=== PATIENT | female | born 1990 | race Caucasian/White ===

== ENCOUNTER → 2020-05-18 14:39 | Outpatient (BNVA) | payer MEDICAID, SELFPAY | PROVIDERS: Family Provider Nurse Practitioner Family; PCP Nurse Practitioner Family; Visit Provider Family Medicine | DX: I10 Essential (primary) hypertension; E03.9 Hypothyroidism, unspecified; I89.0 Lymphedema, not elsewhere classified; G40.802 Other epilepsy, not intractable, without status epilepticus; E10.65 Type 1 diabetes mellitus with hyperglycemia; R60.0 Localized edema | CPT/HCPCS: 80053; 80061; 83036; 83735; 84439; 84443; 84481 ==

== ENCOUNTER 2020-06-02 14:37 | Outpatient (CLI) | payer MEDICAID, SELFPAY ==
--- NOTE | 2020-06-02 15:00 | USCV_ITS ---
Sally Drake Age: 29 Gender: F : 1990 Exam Date: 06/02/2020 14:56 Ordering Phys: Moraima Medrano MD Technologist: Tere Hoffmann [place]am Location: [facility] [place] Indication: FEET ARE SWELLING BP: / HR: 88 Rhythm: Sinus Technical Quality: Adequate MEASUREMENTS (Male / Female) Normal Values 2D ECHO LV Diastolic Diameter PLAX 4.2 cm 4.2 - 5.9 / 3.9 - 5.3 cm LV Systolic Diameter PLAX 2.9 cm LV Chamber Size 2.8 cm IVS Diastolic Thickness 1.0 cm 0.6 - 1.0 / 0.6 - 0.9 cm IVS Systolic Thickness 1.1 cm LVPW Diastolic Thickness 1.2 cm 0.6 - 1.0 / 0.6 - 0.9 cm LVPW Systolic Thickness 1.1 cm RV Chamber Size 2.0 cm LVOT Diameter 2.0 cm LV Ejection Fraction 2D Teich 57.4 % LV Ejection Fraction MOD 2C 62.9 % LV Ejection Fraction 2C AL 64.1 % LA Diameter 3.4 cm LA Width 2.2 cm LA Height 3.4 cm RA Width 2.6 cm RA Height 3.1 cm Aorta at Sinotubular Diameter 3.0 cm M-MODE LV Diastolic Diameter MM 4.2 cm 4.2 - 5.9 / 3.9 - 5.3 cm LV Systolic Diameter MM 2.6 cm LV Ejection Fraction MM Teich 68.8 % IVS Diastolic Thickness MM 1.0 cm 0.6 - 1.0 / 0.6 - 0.9 cm IVS Systolic Thickness MM 1.3 cm LVPW Diastolic Thickness MM 1.0 cm 0.6 - 1.0 / 0.6 - 0.9 cm LVPW Systolic Thickness MM 1.1 cm RV Diastolic Diameter MM 1.4 cm Aortic Annulus Diameter 3.3 cm LA Ao Ratio MM 1.0 MV E Point Septal Separation 0.4 cm DOPPLER AV Peak Velocity 115.0 cm/s LVOT Peak Velocity 91.0 cm/s AV Area Cont Eq vti 2.5 cm squared AV Area Cont Eq pk 2.5 cm squared MV Area PHT 4.4 cm squared Mitral E to A Ratio 1.4 MV E' Velocity 17.0 cm/s Mitral E to MV E' Ratio 5.6 Mitral E to LV E' Lateral Ratio 5.3 Mitral E to LV E' Septal Ratio 6.0 TR Peak Velocity 93.3 cm/s TR Peak Gradient 3.5 mmHg TR Mean Velocity 74.3 cm/s TR Mean Gradient 2.3 mmHg TR Velocity Time Integral 24.2 cm TV Peak E Velocity 83.0 cm/s Right Atrial Pressure 3.0 mmHg Pulmonary Artery Systolic Pressu 6.5 mmHg PV Peak Velocity 68.0 cm/s RV Acceleration Time 0.2 s RV Ejection Time 0.3 s RV AcT/ET 0.6 FINDINGS Left Ventricle Normal left ventricular size and systolic function, EF 55%. No regional wall motion abnormalities. Right Ventricle The right ventricle is normal in size and function. Right Atrium The right atrium is normal in size. Left Atrium The left atrium is normal in size. Mitral Valve No gross abnormalities noted Aortic Valve No gross abnormalities noted Tricuspid Valve Trace tricuspid valve regurgitation. Pulmonic Valve Pulmonic valve not well visualized. Pericardium Normal pericardium without effusion. Aorta Normal ascending aorta dimension. CONCLUSIONS Normal left ventricular size and systolic function, EF 55%. Trace tricuspid valve regurgitation. No regional wall motion abnormalities. Normal pulmonary artery pressure. There is no pericardial effusion. There are no intracardiac masses. No previous study is available for comparison. Dr Leighann Dumont MD FACC (Electronically Signed) Final Date: 02 June 2020 17:38 S
== END 2020-06-02 14:38 | disposition home or self-care (01) ==
PROVIDERS: PCP Family Medicine; Visit Provider Family Medicine
DX: R60.0 Localized edema (principal); M79.89 Other specified soft tissue disorders
CPT/HCPCS: 93306

== ENCOUNTER → 2020-08-15 09:13 | Outpatient (BNVA) | payer MEDICAID, SELFPAY | PROVIDERS: PCP Family Medicine; Visit Provider Family Medicine | DX: M25.551 Pain in right hip (principal); M53.3 Sacrococcygeal disorders, not elsewhere classified | CPT/HCPCS: 73523 ==

== ENCOUNTER → 2020-09-13 10:29 | Outpatient (BNVA) | payer MEDICAID, SELFPAY | PROVIDERS: PCP Family Medicine; Referring Provider Family Medicine; Visit Provider Specialist | DX: M25.551 Pain in right hip (principal) | CPT/HCPCS: 73502 ==

== ENCOUNTER 2020-10-04 07:03 | Outpatient (CLI) | payer MEDICAID, SELFPAY ==
--- NOTE | 2020-10-04 07:07 | MR_ITS ---
WS: [id number] MRI RIGHT HIP NONCONTRAST TECHNIQUE: Axial T1, axial T2 fat sat, coronal T1, coronal STIR, sagittal T2 fat sat, sagittal T1, an d sagittal T2 fat sat, of both hips. CLINICAL INFORMATION: hip pain COMPARISON: None. FINDINGS: Normal anatomic alignment. Normal bone marrow signal in both hips. Normal bone marrow signal in the f emoral necks bilaterally and femoral heads. No evidence of edema or avascular necrosis. Tiny right hong int effusion. Proximal femoral shafts are normal in appearance. Normal sacral ala. Sacrum is normal i n appearance. Normal acetabulum bilaterally. Normal visualized soft tissues. Small amount of free fluid in the cul-de-sac. MR/MR hip RT wo con* [id number] IMPRESSION: 1. Right hip is normal in appearance. No edema or acute fractures. No evidence of avascular necrosis. 2. Tiny right joint effusion. 3. Left hip is normal in appearance. 4. Normal visualized sacrum and pelvic bony structures.
== END 2020-10-04 07:04 | disposition home or self-care (01) ==
PROVIDERS: PCP Family Medicine; Visit Provider Specialist
DX: M25.551 Pain in right hip (principal); M25.451 Effusion, right hip
CPT/HCPCS: 73721

== ENCOUNTER 2020-10-04 08:12 | Outpatient (CLI) | payer MEDICAID, SELFPAY ==
[2020-10-04 09:20] LABS: C Reactive Protein 1.9 mg/L (0.0-4.9)
[2020-10-04 10:03] LABS: Erythrocyte Sedimentation Rate 19 mm/hr (0-15)
[2020-10-05 15:33] LABS: Cyclic Citrullinated Peptide <16 UNITS
[2020-10-06 12:27] LABS: COMPLEMENT, TOTAL (CH50) 58 U/mL (31-60)
[2020-10-06 12:57] LABS: CENTROMERE B ANTIBODY <1.0 NEG AI (<1.0 NEG); COMPLEMENT COMPONENT C3C 97 mg/dL (83-193); COMPLEMENT COMPONENT C4C 23 mg/dL (15-57); JO-1 ANTIBODY <1.0 NEG AI (<1.0 NEG); RNP ANTIBODY <1.0 NEG AI (<1.0 NEG); SCL-70 ANTIBODY <1.0 NEG AI (<1.0 NEG); SJOGREN'S ANTIBODY (SS-A) <1.0 NEG AI (<1.0 NEG); SM ANTIBODY <1.0 NEG AI (<1.0 NEG); SS-B <1.0 NEG AI (<1.0 NEG)
[2020-10-06 15:58] LABS: THYROID PEROXIDASE ANTIBODIES <1 IU/mL (<9)
[2020-10-09 01:03] LABS: DNA AB (DS) CRITHIDIA,IFA NEGATIVE (NEGATIVE)
[2020-10-09 11:57] LABS: ANA PATTERN Nuclear, Speckled; ANA SCREEN, IFA POSITIVE (NEGATIVE)
== END 2020-10-04 08:13 | disposition home or self-care (01) ==
LOC: LAB 08:15
PROVIDERS: PCP Family Medicine; Visit Provider Specialist
DX: M25.551 Pain in right hip (principal)
CPT/HCPCS: 36415; 85651; 86140

== ENCOUNTER → 2020-10-19 09:01 | Outpatient (BNVA) | payer MEDICAID, SELFPAY | PROVIDERS: PCP Family Medicine; Visit Provider Internal Medicine | DX: R76.8 Other specified abnormal immunological findings in serum (principal); M25.551 Pain in right hip; Z11.59 Encounter for screening for other viral diseases; Z11.1 Encounter for screening for respiratory tuberculosis; R70.0 Elevated erythrocyte sedimentation rate; R53.83 Other fatigue | CPT/HCPCS: 99204 ==

== ENCOUNTER 2020-10-19 09:58 | Outpatient (CLI) | payer MEDICAID, SELFPAY ==
--- NOTE | 2020-10-19 10:13 | XR_ITS ---
WS: [id number] FOOT LEFT TECHNIQUE: 2 views of the left foot CLINICAL INFORMATION: M25.50 - Pain in unspecified joint COMPARISON: None. FINDINGS: No evidence of acute fracture or dislocation. Normal tarsal metatarsal alignment. Normal calcaneus. N ormal visualized talar dome. No acute findings. XR/XR foot LT 2V [id number] IMPRESSION: No significant erosive changes. No acute findings.
--- NOTE | 2020-10-19 10:13 | XR_ITS ---
WS: [id number] FOOT RIGHT TECHNIQUE: 2 views of the right foot CLINICAL INFORMATION: M25.50 - Pain in unspecified joint COMPARISON: None. FINDINGS: No evidence of acute fracture or dislocation. Normal tarsal metatarsal alignment. Normal calcaneus. N ormal visualized talar dome. No acute findings. XR/XR foot RT 2V [id number] IMPRESSION: No significant erosive changes. Normal right foot.
--- NOTE | 2020-10-19 10:13 | XR_ITS ---
WS: [id number] TECHNIQUE: 2 views of the left hand CLINICAL INFORMATION: M25.50 - Pain in unspecified joint COMPARISON: None. FINDINGS: Normal metacarpals. Normal MCP joint. Metacarpal heads are normal in appearance. Normal PIP and DIP j oints. No evidence of acute fracture or dislocation. Radiocarpal joint: Normal. Carpal bones: Normal. XR/XR hand LT 2V [id number] IMPRESSION: Normal left hand.
--- NOTE | 2020-10-19 10:13 | XR_ITS ---
WS: [id number] TECHNIQUE: 2 views of the right hand CLINICAL INFORMATION: M25.50 - Pain in unspecified joint COMPARISON: None. FINDINGS: Normal metacarpals. Normal MCP joint. Metacarpal heads are normal in appearance. Normal PIP and DIP j oints. No evidence of acute fracture or dislocation. Radiocarpal joint: Normal. Carpal bones: Normal. XR/XR hand RT 2V [id number] IMPRESSION: Normal right hand.
== END 2020-10-19 09:59 | disposition home or self-care (01) ==
PROVIDERS: PCP Family Medicine; Visit Provider Internal Medicine
DX: M25.50 Pain in unspecified joint (principal); M32.9 Systemic lupus erythematosus, unspecified; Z51.81 Encounter for therapeutic drug level monitoring; D86.9 Sarcoidosis, unspecified
CPT/HCPCS: 36415; 73120; 73620; 80053; 82306; 82607; 82728; 82784; 83036; 83516; 83540; 84425; 84443; 85025; 85651; 86140; 86431; 86480; 86704; 86803; 86812; 87340

== ENCOUNTER → 2021-01-22 10:48 | Outpatient (BNVA) | payer BC, MEDICAID, SELFPAY | PROVIDERS: PCP Family Medicine; Visit Provider Family Medicine | DX: I10 Essential (primary) hypertension (principal); F41.1 Generalized anxiety disorder; R00.2 Palpitations; G47.00 Insomnia, unspecified; L30.9 Dermatitis, unspecified; I89.0 Lymphedema, not elsewhere classified; E03.9 Hypothyroidism, unspecified; E11.9 Type 2 diabetes mellitus without complications | CPT/HCPCS: 80048; 84439; 84443; 84481 ==

== ENCOUNTER → 2021-01-24 16:26 | Outpatient (BNVA) | payer BC, MEDICAID, SELFPAY | PROVIDERS: PCP Family Medicine; Visit Provider Family Medicine | DX: E10.65 Type 1 diabetes mellitus with hyperglycemia (principal) | CPT/HCPCS: 83036 ==

== ENCOUNTER → 2021-02-15 09:11 | Outpatient (BNVA) | payer BC, MEDICAID, SELFPAY | PROVIDERS: PCP Family Medicine; Visit Provider Internal Medicine | DX: E03.9 Hypothyroidism, unspecified (principal); E10.40 Type 1 diabetes mellitus with diabetic neuropathy, unspecified; E10.65 Type 1 diabetes mellitus with hyperglycemia; Z79.4 Long term (current) use of insulin; E16.0 Drug-induced hypoglycemia without coma; T38.3X5A Adverse effect of insulin and oral hypoglycemic [antidiabetic] drugs, initial encounter; F41.1 Generalized anxiety disorder | CPT/HCPCS: 99204 ==

== ENCOUNTER → 2021-03-01 10:58 | Outpatient (BNVA) | payer BC, MEDICAID, SELFPAY | PROVIDERS: PCP Family Medicine; Visit Provider Internal Medicine | DX: E03.9 Hypothyroidism, unspecified (principal); E10.40 Type 1 diabetes mellitus with diabetic neuropathy, unspecified; E10.65 Type 1 diabetes mellitus with hyperglycemia; E16.0 Drug-induced hypoglycemia without coma; T38.3X5A Adverse effect of insulin and oral hypoglycemic [antidiabetic] drugs, initial encounter | CPT/HCPCS: 99214 ==

== ENCOUNTER → 2021-03-21 11:34 | Outpatient (BNVA) | payer BC, MEDICAID, SELFPAY | PROVIDERS: PCP Family Medicine; Visit Provider Nurse Practitioner Family | DX: Z20.822 Contact with and (suspected) exposure to COVID-19 (principal) | CPT/HCPCS: 87635 ==

== ENCOUNTER → 2021-06-21 11:52 | Outpatient (BNVA) | payer BC, MEDICAID, SELFPAY | PROVIDERS: PCP Family Medicine; Visit Provider Family Medicine | DX: G40.802 Other epilepsy, not intractable, without status epilepticus (principal); F41.1 Generalized anxiety disorder; G47.00 Insomnia, unspecified; R00.2 Palpitations; E03.9 Hypothyroidism, unspecified; I10 Essential (primary) hypertension; I89.0 Lymphedema, not elsewhere classified; E11.9 Type 2 diabetes mellitus without complications | CPT/HCPCS: 80053; 80061; 83036 ==

== ENCOUNTER → 2021-09-25 11:31 | Outpatient (BNVA) | payer BC, MEDICAID, SELFPAY | PROVIDERS: PCP Family Medicine; Visit Provider Internal Medicine | DX: E10.65 Type 1 diabetes mellitus with hyperglycemia (principal); E10.40 Type 1 diabetes mellitus with diabetic neuropathy, unspecified; E03.9 Hypothyroidism, unspecified; E16.0 Drug-induced hypoglycemia without coma; T38.3X5A Adverse effect of insulin and oral hypoglycemic [antidiabetic] drugs, initial encounter; Z79.4 Long term (current) use of insulin | CPT/HCPCS: 99214 ==

== ENCOUNTER → 2021-10-12 09:04 | Outpatient (BNVA) | payer BC, MEDICAID, SELFPAY | PROVIDERS: PCP Family Medicine; Visit Provider Internal Medicine | DX: E10.65 Type 1 diabetes mellitus with hyperglycemia (principal); E10.40 Type 1 diabetes mellitus with diabetic neuropathy, unspecified; E03.9 Hypothyroidism, unspecified; E16.0 Drug-induced hypoglycemia without coma; T38.3X5A Adverse effect of insulin and oral hypoglycemic [antidiabetic] drugs, initial encounter; Z79.4 Long term (current) use of insulin | CPT/HCPCS: 99214 ==

== ENCOUNTER → 2021-12-10 08:45 | Outpatient (BNVA) | payer BC, MEDICAID, SELFPAY | PROVIDERS: PCP Family Medicine; Visit Provider Family Medicine | DX: E03.9 Hypothyroidism, unspecified (principal); I10 Essential (primary) hypertension; E10.65 Type 1 diabetes mellitus with hyperglycemia | CPT/HCPCS: 80053; 83036; 83735; 84443; 85025; 87635 ==

== ENCOUNTER → 2022-01-18 09:22 | Outpatient (BNVA) | payer BC, MEDICAID, SELFPAY | PROVIDERS: PCP Family Medicine; Visit Provider Internal Medicine | DX: E10.65 Type 1 diabetes mellitus with hyperglycemia (principal); E10.40 Type 1 diabetes mellitus with diabetic neuropathy, unspecified; E03.9 Hypothyroidism, unspecified; Z79.4 Long term (current) use of insulin | CPT/HCPCS: 99214 ==

== ENCOUNTER → 2022-04-12 08:50 | Outpatient (BNVA) | payer BC, MEDICAID, SELFPAY | PROVIDERS: PCP Family Medicine; Visit Provider Internal Medicine | DX: E10.40 Type 1 diabetes mellitus with diabetic neuropathy, unspecified (principal); E10.65 Type 1 diabetes mellitus with hyperglycemia; E03.9 Hypothyroidism, unspecified; Z79.4 Long term (current) use of insulin | CPT/HCPCS: 80053; 80061; 83036; 84439; 84443; 99214 ==

== ENCOUNTER → 2022-08-13 11:14 | Outpatient (BNVA) | payer BC, MEDICAID, SELFPAY | PROVIDERS: PCP Family Medicine; Visit Provider Family Medicine | DX: G47.00 Insomnia, unspecified (principal); R00.2 Palpitations; I10 Essential (primary) hypertension; I89.0 Lymphedema, not elsewhere classified; G40.802 Other epilepsy, not intractable, without status epilepticus; F41.1 Generalized anxiety disorder; E10.40 Type 1 diabetes mellitus with diabetic neuropathy, unspecified; E03.9 Hypothyroidism, unspecified; R76.8 Other specified abnormal immunological findings in serum; M25.551 Pain in right hip; E10.65 Type 1 diabetes mellitus with hyperglycemia; F51.04 Psychophysiologic insomnia | CPT/HCPCS: 80053; 83036; 84443; 85651; 86140 ==

== ENCOUNTER → 2022-10-28 09:21 | Outpatient (BNVA) | payer BC, MEDICAID, SELFPAY | PROVIDERS: PCP Family Medicine; Visit Provider Internal Medicine | DX: R76.8 Other specified abnormal immunological findings in serum (principal); E03.9 Hypothyroidism, unspecified; E10.40 Type 1 diabetes mellitus with diabetic neuropathy, unspecified; E16.0 Drug-induced hypoglycemia without coma; R73.9 Hyperglycemia, unspecified; T38.3X5A Adverse effect of insulin and oral hypoglycemic [antidiabetic] drugs, initial encounter | CPT/HCPCS: 80061; 82550; 83036; 83516; 83735; 84100; 85651; 86140 ==

== ENCOUNTER → 2022-11-01 09:57 | Outpatient (BNVA) | payer BC, MEDICAID, SELFPAY | PROVIDERS: PCP Family Medicine; Visit Provider Internal Medicine | DX: E10.40 Type 1 diabetes mellitus with diabetic neuropathy, unspecified (principal); E03.9 Hypothyroidism, unspecified; E10.65 Type 1 diabetes mellitus with hyperglycemia; R73.9 Hyperglycemia, unspecified | CPT/HCPCS: 36415; 84439; 84443 ==

== ENCOUNTER → 2023-01-28 09:13 | Outpatient (BNVA) | payer BC, MEDICAID, SELFPAY | PROVIDERS: PCP Family Medicine; Visit Provider Internal Medicine | DX: E03.9 Hypothyroidism, unspecified (principal); E10.40 Type 1 diabetes mellitus with diabetic neuropathy, unspecified | CPT/HCPCS: 80053; 80061; 83036; 84439; 84443 ==

== ENCOUNTER → 2023-02-17 16:33 | Outpatient (BNVA) | payer BC, MEDICAID, SELFPAY | PROVIDERS: PCP Family Medicine; Visit Provider Internal Medicine | DX: M25.50 Pain in unspecified joint (principal); M53.3 Sacrococcygeal disorders, not elsewhere classified; M54.50 Low back pain, unspecified | CPT/HCPCS: 72100; 73522 ==

== ENCOUNTER → 2023-03-04 09:11 | Outpatient (BNVA) | payer BC, MEDICAID, SELFPAY | PROVIDERS: PCP Family Medicine; Visit Provider Emergency Medicine | DX: S92.254A Nondisplaced fracture of navicular [scaphoid] of right foot, initial encounter for closed fracture (principal); X58.XXXA Exposure to other specified factors, initial encounter; M79.671 Pain in right foot | CPT/HCPCS: 73630 ==

== ENCOUNTER → 2023-03-21 09:19 | Outpatient (BNVA) | payer BC, MEDICAID, SELFPAY | PROVIDERS: PCP Family Medicine; Visit Provider Podiatrist Foot & Ankle Surgery | DX: S92.251A Displaced fracture of navicular [scaphoid] of right foot, initial encounter for closed fracture (principal); E10.9 Type 1 diabetes mellitus without complications; Z79.4 Long term (current) use of insulin; X58.XXXA Exposure to other specified factors, initial encounter | CPT/HCPCS: 73630 ==

== ENCOUNTER → 2023-03-27 08:57 | Outpatient (BNVA) | payer BC, MEDICAID, SELFPAY | PROVIDERS: PCP Family Medicine; Visit Provider Family Medicine | DX: G40.909 Epilepsy, unspecified, not intractable, without status epilepticus (principal); F41.1 Generalized anxiety disorder; I10 Essential (primary) hypertension; I89.0 Lymphedema, not elsewhere classified; R00.2 Palpitations; G40.802 Other epilepsy, not intractable, without status epilepticus; E03.9 Hypothyroidism, unspecified; E10.40 Type 1 diabetes mellitus with diabetic neuropathy, unspecified; E10.9 Type 1 diabetes mellitus without complications; R73.9 Hyperglycemia, unspecified; R76.8 Other specified abnormal immunological findings in serum; E10.65 Type 1 diabetes mellitus with hyperglycemia; F51.04 Psychophysiologic insomnia; R22.1 Localized swelling, mass and lump, neck | CPT/HCPCS: 80053; 80061; 82043; 83036; 84439; 84443; 84480 ==

== ENCOUNTER → 2023-04-09 09:43 | Outpatient (BNVA) | payer BC, MEDICAID, SELFPAY | PROVIDERS: PCP Family Medicine; Visit Provider Podiatrist Foot & Ankle Surgery | DX: S92.251A Displaced fracture of navicular [scaphoid] of right foot, initial encounter for closed fracture (principal); X58.XXXA Exposure to other specified factors, initial encounter | CPT/HCPCS: 73630 ==

== ENCOUNTER 2023-04-15 08:25 | Outpatient (CLI) | payer BC, MEDICAID, SELFPAY ==
--- NOTE | 2023-04-15 08:15 | US_ITS ---
WS: [id number] THYROID ULTRASOUND HISTORY: Thyroiditis COMPARISON: 11/01/2016 Right lobe: 1.1 cm x 0.9 cm x 3.3 cm (w x ap x l). Volume: 1.7 cm3. Normal size and mild coarsened echotexture. No significant are dominant nodules are present. Left lobe: 1.3 cm x 0.8 cm x 3.6 cm (w x ap x l). Volume: 1.9 cm3. Normal size and mild coarsened echotexture. No significant or dominant nodules are present. Isthmus: 0.2 cm. US/US thyroid [id number] IMPRESSION: 1. No thyroid nodules. 2. Thyroid has decreased in size since 11/01/2016. Otherwise no suspicious or a bnormal findings.
== END 2023-04-15 08:26 | disposition home or self-care (01) ==
LOC: RAD 08:29
PROVIDERS: PCP Family Medicine; Visit Provider Internal Medicine
DX: E06.9 Thyroiditis, unspecified (principal)
CPT/HCPCS: 76536

== ENCOUNTER → 2023-04-30 10:17 | Outpatient (BNVA) | payer BC, MEDICAID, SELFPAY | PROVIDERS: PCP Family Medicine; Visit Provider Podiatrist Foot & Ankle Surgery | DX: S92.251A Displaced fracture of navicular [scaphoid] of right foot, initial encounter for closed fracture (principal); S93.401A Sprain of unspecified ligament of right ankle, initial encounter; X58.XXXA Exposure to other specified factors, initial encounter; M76.71 Peroneal tendinitis, right leg; E11.9 Type 2 diabetes mellitus without complications; Z79.4 Long term (current) use of insulin; Z79.84 Long term (current) use of oral hypoglycemic drugs | CPT/HCPCS: 73630 ==

== ENCOUNTER 2023-05-13 06:54 | Outpatient (CLI) | payer BC, MEDICAID, SELFPAY ==
--- NOTE | 2023-05-13 07:15 | MR_ITS ---
WS: [id number] EXAMINATION: MR ankle RT wo con* [id number] ORDER DATE: 05/13/2023 7:38 AM COMPARISON: Radiograph April 30, 2023 HISTORY: Navicular fracture CONTRAST: None. TECHNIQUE: Axial proton density fat sat, axial T1, sagittal proton density, sagittal STIR, coronal T2 fat sat, and coronal T1 sequences performed. After contrast, axial T1 fat sat, coronal T1 fat sat, and sagittal T1 fat sat were performed. FINDINGS: Pes planus. Normal tarsal metatarsal alignment. Presented described navicular fracture with evidence of incomplete healing. Diffuse edema within the navicular with a small amount of surrounding soft tis nirav edema. Fluid in the talonavicular joint. Persistent well-corticated fracture involving the navic ular with mild widening. Small amount of fluid and edema in the fracture site. Distal Achilles is normal in appearance. Tiny amount of tenosynovitis along the peroneal tendon sheat h. Small amount of tenosynovitis along the tibialis posterior and flexor hallucis longus. Extensor co mpartment tendons are normal in appearance. Normal ATF. Normal PTF Normal bone marrow signal in the talar dome. Normal bone marrow signal in the medial and lateral mall eolus. Normal deltoid ligament. Small amount of subchondral cystic change in the posterior tibial jose l fond. MR/MR ankle RT wo con* [id number] IMPRESSION: 1. Again seen is the nondisplaced fracture involving the mid navicular. Incomp lete bony healing with mild widening suspicious for ununited fracture. Persiste nt edema involving the navicular. Recommend continued surveillance. 2. Pes planus. 3. Normal talar dome. No evidence of avascular necrosis in the talar dome. 4. Normal ATF. 5. Normal medial and lateral malleolus. 6. Small amount of tenosynovitis along the peroneal tendon sheath, tibialis po sterior, flexor hallucis longus. 7. No other acute findings.
== END 2023-05-13 06:55 | disposition home or self-care (01) ==
LOC: RAD 06:55
PROVIDERS: PCP Family Medicine; Visit Provider Podiatrist Foot & Ankle Surgery
DX: S92.253A Displaced fracture of navicular [scaphoid] of unspecified foot, initial encounter for closed fracture (principal); M76.71 Peroneal tendinitis, right leg; M79.671 Pain in right foot; X58.XXXA Exposure to other specified factors, initial encounter; Y93.9 Activity, unspecified; Y92.9 Unspecified place or not applicable; Y99.9 Unspecified external cause status
CPT/HCPCS: 73721

== ENCOUNTER 2023-05-23 10:23 | Day surgery (SDC) | payer BC, MEDICAID, SELFPAY ==
[2023-05-22 08:25] VITALS: BMI 31.6
[2023-05-23] VITALS (10 sets, daily range): BP systolic 125–136; BP diastolic 75–96; PULSE 76–85; RESP 10–20; TEMP 36.1–36.6; O2SAT 97–100
--- NOTE | 2023-05-23 | XR_ITS ---
WS: [id number] C-ARM RADIOGRAPHS LEFT FOOT; 1 IMAGES HISTORY: Right navicular, OR pic COMPARISON: None available. Intraoperative imaging during screw fixation navicular bone. Navicular good position alignment on thi s single projection. XR/XR foot RT 2V [id number] IMPRESSION: Intraoperative imaging screw fixation navicular.
[2023-05-23 10:54] LABS: OR HCG Qualitative Urine Negative (Negative)
[2023-05-23] MEDS: gabapentin 300 mg Capsule PO (11:19)
[2023-05-23] MEDS: acetaminophen 1,000 MG/100 ML PIGGYBACK 400 MG IV (11:28)
[2023-05-23] MEDS: sodium chloride 0.9% 1,000 ML 30 ML IV (11:30)
[2023-05-23 11:40] LABS: Basophils % 0.4 %; Eosinophils # 0.1 10^3/uL (0.0-0.8); Eosinophils % 1.2 %; Hematocrit 35.2 % (37.0-47.0); Hemoglobin 11.1 g/dL (11.5-15.3); Lymphocytes # 1.9 10^3/uL (0.8-4.8); Lymphocytes % 33.3 %; Mean Corpuscular HGB Conc 31.5 g/dL (30.0-36.0); Mean Corpuscular Hemoglobin 30.6 pg (28.0-34.0); Mean Platelet Volume 11.1 fL (7.4-10.4); Monocytes # 0.3 10^3/uL (0.2-0.9); Monocytes % 5.1 %; Neutrophils # 3.42 10^3/uL (1.8-7.7); Neutrophils % 59.8 %; Nucleated Red Blood Cells % 0 %; Platelet Count 178 10^3/cmm (130-400); Red Blood Count 3.63 10^6/uL (4.1-5.3); Red Cell Distribution Width 12.4 % (12.1-15.1); White Blood Count 5.7 10^3/uL (4.0-10.0)
--- NOTE | 2023-05-23 11:47 | W.PM.OPSUD ---
Surgery/Procedure H&P Update DATE OF PROCEDURE: May 23, 2023 DATE H&P PERFORMED: 05/14/23 CHANGES TO PREVIOUS DOCUMENTATION: No changes PREOP DIAGNOSIS: Right navicular fracture PLANNED PROCEDURE: Operation Date: 05/23/23 12:00 Proposed Procedures p :?ORIF right navicular fracture CPT 80038 S92.254(Right) - Casey Hayden DPM
[2023-05-23 11:50] LABS: Anion Gap 16.3 (5-19); Blood Urea Nitrogen 13 mg/dL (6-20); Calcium 9.4 mg/dL (8.5-10.5); Carbon Dioxide 24 mmol/L (22-29); Chloride 101 mmol/L (98-107); Glomerular Filtration Rate 96.4 mL/min (90-130); Glucose 137 mg/dL (65-115); Osmolality Calculated 286 mOsm/kg (285-295); Potassium 4.3 mmol/L (3.5-5.1); Sodium 137 mmol/L (136-145)
--- NOTE | 2023-05-23 12:34 | P.ANESASSM_ITS ---
Pre-Anesthetic Assessment Height/Weight: Height 1.68 m Weight 88.904 kg Temp Pulse Resp BP Pulse Ox O2 Del Method 97.9 F 85 16 130/83 97 Room Air 05/23/23 10:47 05/23/23 10:47 05/23/23 10:47 05/23/23 10:47 05/23/23 10:47 05/23/23 10:47 Preop Diagnosis: Right navicular fracture Operation Date: 05/23/23 12:00 Proposed Procedures p :?ORIF right navicular fracture CPT 28854 S92.254(Right) - Casey Hayden DPM Familial anesthetic complications: none Was Beta Bassam taken within 24 hours: Yes Was Clonidine taken within 24 hours: N/A Last intake: Intake Last Liquid Date 05/22/23 Last Liquid Time 23:00 Last Solid Date 05/22/23 Last Solid Time 19:30 Social No alcohol and No tobacco Exam alert, oriented x 3, clear to auscultation bilaterally and regular rate & rhythm Airway Submandibular: within normal limits Cervical ROM: within normal limits Mallampati: Class II Dentition: full CV/HEM Hypertension Metabolic Diabetes Mellitus, Morbid Obesity and Thyroid Disease Neuropsych Anxiety, Depression and Neuropathy Anesthetic Plan ASA status: 3 Anesthesia: Choice Medications/Allergies Home Medications Medication Instructions Recorded Confirmed Last Taken Type Diabetic shoes & inserts #1 ea 07/27/20 05/14/23 Unknown Rx pen needle, diabetic 29 gauge x #360 ea 02/16/21 05/14/23 Unknown Rx 1/2 (BD Ultra-Fine Original Pen Needle) blood-glucose meter (OneTouch #1 ea 08/21/21 05/14/23 Unknown Rx Verio Flex Start kit) lancets 33 gauge (OneTouch Delica #360 ea 08/21/21 05/14/23 Unknown Rx Lancets) blood-glucose meter,continuous #1 ea 01/22/22 05/14/23 Unknown Rx (Dexcom G6 Maintenance Construction Helper) blood-glucose transmitter (Dexcom #1 ea 08/02/22 05/14/23 Unknown Rx G6 Transmitter device) insulin pump cartridge #30 ea 08/06/22 05/14/23 Unknown Rx levetiracetam 750 mg tablet 750 mg PO BID 90 days #180 tabs 08/13/22 05/23/23 05/22/23 Rx (Keppra) insulin pump cart,cont inf,BT #5 ea 09/17/22 05/14/23 Unknown Rx (Omnipod Dash Pods (Gen 4) subcutaneous cartridge) gabapentin 300 mg capsule 300 mg PO TID 90 days #270 caps 10/01/22 05/23/23 05/22/23 Rx hydroxychloroquine 200 mg tablet 200 mg PO BID #60 tabs 02/11/23 05/23/23 05/22/23 Rx Crutches #2 ea 03/07/23 05/14/23 Unknown Rx blood sugar diagnostic (OneTouch #360 ea 03/12/23 05/14/23 Unknown Rx Verio test strips) blood-glucose sensor (Dexcom G6 #9 ea 03/12/23 05/14/23 Unknown Rx Sensor device) blood sugar diagnostic #100 ea 03/27/23 05/14/23 Unknown Rx duloxetine 20 mg capsule,delayed 20 mg PO BID 90 days #180 caps 03/27/23 05/23/23 05/22/23 Rx release furosemide 20 mg tablet (Lasix) 40 mg PO DAILY 90 days #135 tabs 03/27/23 05/23/23 05/22/23 Rx metoprolol succinate 25 mg 25 mg PO DAILY 90 days #90 tabs 03/27/23 05/22/23 05/21/23 Rx tablet,extended release 24 hr levothyroxine 125 mcg tablet 125 mcg PO DAILY #90 tabs 03/28/23 05/23/23 05/22/23 Rx metformin 1,000 mg tablet 1,000 mg PO BID #180 tabs 04/04/23 05/23/23 05/22/23 Rx insulin aspart U-100 100 unit/mL See Rx Instructions .Route 05/13/23 05/22/23 Unknown Rx subcutaneous solution (Novolog .COMPLEX #30 mL U-100 Insulin aspart) hydrocodone 5 mg-acetaminophen 325 1 tab PO Q6H PRN pain #28 tabs 05/23/23 Unknown Rx mg tablet potassium chloride 10 mEq 10 meq PO DAILY 05/23/23 05/23/23 05/21/23 History tablet,extended release Allergies Allergy/AdvReac Type Severity Reaction Status Date / Time adhesive tape Allergy Unknown UNKNOWN Verified 05/14/23 09:48 clarithromycin [From Biaxin] Allergy Unknown UNKNOWN Verified 05/14/23 09:48 Penicillins Allergy Unknown UNKNOWN Verified 05/14/23 09:48 Current Medications Generic Name Dose Route Start Last Admin Trade Name Fredy PRN Reason Stop Dose Admin Sodium Chloride 1,000 mls @ 30 mls/hr 05/23/23 10:30 05/23/23 11:30 Sodium Chloride 0.9% IV 05/24/23 10:29 30 mls/hr .Q24H KAITLIN Administration PFSH Anesthesia Medical History Epilepsy Essential hypertension Off lisinopril due to low BP. AV (generalized anxiety disorder) Hypothyroidism Insomnia Insomnia Scoliosis Type 1 diabetes mellitus Surgical History H/O section S/P cholecystectomy Family History Other Hypertension Social History Smoking and tobacco status: never smoked Second hand smoke exposure: No Alcohol intake: never Desire information about alcohol rehabilitation?: No Substance/Drug Use: never Desire information about substance/drug rehabilitation?: No Do you think of yourself as: Straight/Heterosexual Current gender identity: Female Female Reproductive History Date of last menstrual period: 04/25/23 Spontaneous abortions: No Data Anesthesia 05/23/23 11:21 05/23/23 11:21 Short CBC 05/23/23 Range/Units 11:21 WBC 5.7 (4.0-10.0) 10^3/uL Hgb 11.1 L (11.5-15.3) g/dL Hct 35.2 L (37.0-47.0) % MCV 97.0 (81-99) fl Plt Count 178 (130-400) 10^3/cmm Neut % (Auto) 59.8 % Neut # (Auto) 3.42 (1.8-7.7) 10^3/uL BMP 05/23/23 11:21 Sodium 137 Potassium 4.3 Chloride 101 Carbon Dioxide 24 BUN 13 Creatinine 0.7 Glucose 137 H Calcium 9.4 Cardiac Studies: Echocardiogram Ultrasound 06/02/20 Holter Monitor 01/03/21
--- NOTE | 2023-05-23 13:54 | ANE.PACU2 ---
Inpatient post-anesthesia follow up: Airway intact: Yes Vital signs: Temperature 97 F Pulse Rate 78 Respiratory Rate 16 Blood Pressure 129/84 Pulse Oximetry 100 Oxygen Delivery Me thod Room Air Oxygen Flow Rate 8 Fraction of Inspir ed Oxygen Hydration adequate: Yes Nausea and vomiting: No Pain level: 3 Mental status: Baseline
[2023-05-23] MEDS: HYDROcodone-acetaminophen 5-325 mg Tablet 1 TAB PO (14:16)
[2023-05-23 14:48] LABS: Glucose Point of Care 152 mg/dL (70-110)
--- NOTE | 2023-05-23 18:30 | PM.OP ---
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 The patient has had the aforementioned chief complaint for some time. Conservative treatment measures have been attempted and the patient has opted for surgical intervention at this time. A lengthy discussion regarding the procedure, including risks and complications has been had with the patient and is noted in the recent clinic note. Written and verbal consent have been obtained. All patient questions have been answered to the patient?s satisfaction. No written or verbal guarantees have been given or implied. The patient has been NPO since midnight. The history has been reviewed and the history and physical is current. The signed consent was confirmed and placed in the patient chart. Patient imaging has been reviewed and is consistent with the diagnosis. Under mild sedation, the patient was brought into the operating room and placed on the table in the supine position. IV antibiotics were given by the anesthesia team as preoperative surgical prophylaxis. General sedation was then performed by the anesthesiateam. A pneumatic tourniquet was then placed about the right ankle. A local field block was then performed using 0.5% Marcaine plain. the operative extremity was then prepped and draped in the usual fashion. The extremity was then elevated and exsanguinated before the tourniquet was inflated to 250 mmHg. After inflation, the following procedure was then performed. Attention was directed to the dorsal aspect of the right foot where under C-arm fluoroscopy the site of the navicular body was identified. The site was marked before a #15 blade was used to make a stab incision over this area. Blunt dissection was carried down to the level of the dorsal aspect of the navicular using a mosquito hemostat. Care was taken to ensure that there were no vital structures within the incision. Next, skin hooks were used to retract the incision while the 2 mm minimally invasive rotary bur from [employer] was inserted into the incision and into the nonunion site of the navicular body. This was visualized under direct C-arm fluoroscopy. The bur was used to debride the nonunion site and a sweeping motion. Next, the site was irrigated with copious amounts of sterile saline. After preparation of the nonunion site it was grafted using demineralized bone matrix from [employer]. Next, a guidewire was driven from medial to lateral through the navicular spanning the fracture/nonunion site. Next a 2.5 headless compression screw was inserted over the wire across the fracture site through a small stab incision that was made using a #15 blade. Good compression was noted on C-arm fluoroscopy. Good position of the screw was confirmed. Incision sites were irrigated lightly with sterile saline before being closed with 4-0 nylon. The tourniquet was let down and good hyperemic response was noted all digits of the right foot. The incision sites were dressed with Xeroform, 4 x 4 gauze, Kerlix before the patient was placed in a well-padded below the knee posterior splint. The patient tolerated the procedure and anesthesia well and without complication. The patient was transported from the operating room to the recovery room with vital signs stable and vascular status intact to all digits of the right foot. The patient was given both written and verbal instructions to remain strict nonweightbearing to the operative extremity, to keep dressings/splint clean, dry and intact and to take pain medication as directed. The patient will follow-up in the outpatient setting at their scheduled appointment. The patient was discharged with my personal number and was instructed to call if any questions or issues should arise. They were discharged home once anesthesia criteria was met.
== END 2023-05-23 15:05 | disposition home or self-care (01) ==
LOC: OR 10:24
PROVIDERS: PCP Family Medicine; Visit Provider Podiatrist Foot & Ankle Surgery
PROC: (CPT 28465; principal; 2023-05-23 12:00)
DX: S92.254A Nondisplaced fracture of navicular [scaphoid] of right foot, initial encounter for closed fracture (principal); X58.XXXA Exposure to other specified factors, initial encounter; I10 Essential (primary) hypertension; E10.42 Type 1 diabetes mellitus with diabetic polyneuropathy; E66.01 Morbid (severe) obesity due to excess calories; Z68.31 Body mass index [BMI] 31.0-31.9, adult; E03.9 Hypothyroidism, unspecified; Z79.4 Long term (current) use of insulin; Z79.84 Long term (current) use of oral hypoglycemic drugs; Z79.891 Long term (current) use of opiate analgesic
CPT/HCPCS: 28465; 36415; 36416; 73620; 76000; 80048; 81025; 82962; 84703; 85025; C1713; C1762; J0131; J1100; J2405; J2704; J3010; J7030

== ENCOUNTER → 2023-05-28 14:20 | Outpatient (BNVA) | payer BC, MEDICAID, SELFPAY | PROVIDERS: PCP Family Medicine; Visit Provider Internal Medicine | DX: E03.9 Hypothyroidism, unspecified (principal); E06.9 Thyroiditis, unspecified; E10.40 Type 1 diabetes mellitus with diabetic neuropathy, unspecified; E10.9 Type 1 diabetes mellitus without complications; R73.9 Hyperglycemia, unspecified | CPT/HCPCS: 84439; 84443; 86376; 86800 ==

== ENCOUNTER → 2023-06-11 15:29 | Outpatient (BNVA) | payer BC, MEDICAID, SELFPAY | PROVIDERS: PCP Family Medicine; Visit Provider Podiatrist Foot & Ankle Surgery | DX: S93.401A Sprain of unspecified ligament of right ankle, initial encounter (principal); S92.253A Displaced fracture of navicular [scaphoid] of unspecified foot, initial encounter for closed fracture; X58.XXXA Exposure to other specified factors, initial encounter | CPT/HCPCS: 73630 ==

== ENCOUNTER → 2023-07-02 12:54 | Outpatient (BNVA) | payer BC, MEDICAID, SELFPAY | PROVIDERS: PCP Family Medicine; Visit Provider Podiatrist Foot & Ankle Surgery | DX: Z48.89 Encounter for other specified surgical aftercare; S92.251A Displaced fracture of navicular [scaphoid] of right foot, initial encounter for closed fracture; X58.XXXA Exposure to other specified factors, initial encounter | CPT/HCPCS: 73630 ==

== ENCOUNTER → 2023-07-16 15:31 | Outpatient (BNVA) | payer BC, SELFPAY | PROVIDERS: PCP Family Medicine; Visit Provider Podiatrist Foot & Ankle Surgery | DX: Z98.890 Other specified postprocedural states; S92.251A Displaced fracture of navicular [scaphoid] of right foot, initial encounter for closed fracture; X58.XXXA Exposure to other specified factors, initial encounter; Z48.89 Encounter for other specified surgical aftercare | CPT/HCPCS: 73630 ==

== ENCOUNTER → 2023-08-13 14:43 | Outpatient (BNVA) | payer BC, MEDICAID, SELFPAY | PROVIDERS: PCP Family Medicine; Visit Provider Podiatrist Foot & Ankle Surgery | DX: Z98.890 Other specified postprocedural states; S92.253A Displaced fracture of navicular [scaphoid] of unspecified foot, initial encounter for closed fracture; X58.XXXA Exposure to other specified factors, initial encounter | CPT/HCPCS: 73630 ==

== ENCOUNTER 2023-09-04 13:04 | Outpatient (CLI) | payer BC, MEDICAID, SELFPAY ==
--- NOTE | 2023-09-04 13:00 | XR_ITS ---
WS: [id number] SCREENING DEXA SCAN [employer] CLINICAL INFORMATION: E06.9 - Thyroiditis, unspecified COMPARISON: None. FINDINGS: The L1-L4 bone mineral density measures 1.615 g/cm2. This corresponds to a T score score of 3.6 and Z score of 2.6. Left femoral neck bone mineral density measures 1.078 g/cm2. This corresponds to a T score of 0.6 and Z score of 0.0. Right femoral neck bone mineral density measures 1.016 g/cm2. This corresponds to a T score 0.1of and Z score of -0.5. Mean femoral neck bone mineral density measures 1.047 g/cm2. This corresponds to a T score of 0.3 and Z score of -0.3. IMPRESSION: Normal bone mineralization lumbar spine and femoral necks. FRAX not calculated due to patients age out of reference range. Reference range 40-90.
== END 2023-09-04 13:05 | disposition home or self-care (01) ==
PROVIDERS: PCP Family Medicine; Visit Provider Internal Medicine
DX: Z13.820 Encounter for screening for osteoporosis (principal); E06.9 Thyroiditis, unspecified; T14.8XXA Other injury of unspecified body region, initial encounter; X58.XXXA Exposure to other specified factors, initial encounter
CPT/HCPCS: 77080; 80053; 85025; 85651; 86140

== ENCOUNTER → 2023-09-09 09:18 | Outpatient (BNVA) | payer BC, MEDICAID, SELFPAY | PROVIDERS: PCP Family Medicine; Visit Provider Family Medicine | DX: F41.1 Generalized anxiety disorder (principal); I10 Essential (primary) hypertension; I89.0 Lymphedema, not elsewhere classified; R00.2 Palpitations; G40.802 Other epilepsy, not intractable, without status epilepticus; A09 Infectious gastroenteritis and colitis, unspecified; Z32.00 Encounter for pregnancy test, result unknown; E03.9 Hypothyroidism, unspecified; R73.9 Hyperglycemia, unspecified; R76.8 Other specified abnormal immunological findings in serum; E10.65 Type 1 diabetes mellitus with hyperglycemia | CPT/HCPCS: 80053; 80061; 81000; 81025; 82043; 83036; 84439; 84443; 85025; 87400; 87426 ==

== ENCOUNTER → 2023-09-17 13:43 | Outpatient (BNVA) | payer BC, MEDICAID, SELFPAY | PROVIDERS: PCP Family Medicine; Visit Provider Family Medicine | DX: G47.00 Insomnia, unspecified (principal); K21.9 Gastro-esophageal reflux disease without esophagitis; R82.90 Unspecified abnormal findings in urine; A09 Infectious gastroenteritis and colitis, unspecified; F51.01 Primary insomnia; E03.9 Hypothyroidism, unspecified; R31.9 Hematuria, unspecified | CPT/HCPCS: 81000; 87086 ==

== ENCOUNTER → 2023-12-18 10:37 | Outpatient (BNVA) | payer BC, MEDICAID, SELFPAY | PROVIDERS: PCP Family Medicine; Visit Provider Family Medicine | DX: E03.9 Hypothyroidism, unspecified (principal); E10.40 Type 1 diabetes mellitus with diabetic neuropathy, unspecified; K21.9 Gastro-esophageal reflux disease without esophagitis; F51.01 Primary insomnia; E10.65 Type 1 diabetes mellitus with hyperglycemia; R76.8 Other specified abnormal immunological findings in serum; G47.00 Insomnia, unspecified | CPT/HCPCS: 80053; 80061; 82043; 83036; 84439; 84443; 85025 ==

== ENCOUNTER → 2024-04-01 15:37 | Outpatient (BNVA) | payer BC, MEDICAID, SELFPAY | PROVIDERS: PCP Family Medicine; Visit Provider Podiatrist Foot & Ankle Surgery | DX: M79.672 Pain in left foot (principal); M66.872 Spontaneous rupture of other tendons, left ankle and foot; S99.922A Unspecified injury of left foot, initial encounter; X58.XXXA Exposure to other specified factors, initial encounter | CPT/HCPCS: 73600; 73630 ==

== ENCOUNTER 2024-04-06 15:34 | Outpatient (CLI) | payer BC, MEDICAID, SELFPAY ==
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
== END 2024-04-06 15:35 | disposition home or self-care (01) ==
LOC: RAD 15:34
PROVIDERS: PCP Family Medicine; Visit Provider Podiatrist Foot & Ankle Surgery
DX: M66.872 Spontaneous rupture of other tendons, left ankle and foot (principal); S99.922A Unspecified injury of left foot, initial encounter; S93.692A Other sprain of left foot, initial encounter; X58.XXXA Exposure to other specified factors, initial encounter
CPT/HCPCS: 73721

== ENCOUNTER → 2024-04-19 14:05 | Outpatient (BNVA) | payer BC, MEDICAID, SELFPAY | PROVIDERS: PCP Family Medicine; Referring Provider Internal Medicine; Visit Provider Internal Medicine | DX: E03.9 Hypothyroidism, unspecified (principal); E10.65 Type 1 diabetes mellitus with hyperglycemia; R73.9 Hyperglycemia, unspecified; E10.40 Type 1 diabetes mellitus with diabetic neuropathy, unspecified; E16.0 Drug-induced hypoglycemia without coma; T38.3X5A Adverse effect of insulin and oral hypoglycemic [antidiabetic] drugs, initial encounter; E06.9 Thyroiditis, unspecified | CPT/HCPCS: 80053; 80061; 82043; 83036; 84439; 84443 ==

== ENCOUNTER → 2024-06-22 09:55 | Outpatient (BNVA) | payer BC, MEDICAID, SELFPAY | PROVIDERS: PCP Family Medicine; Visit Provider Family Medicine | DX: R30.0 Dysuria | CPT/HCPCS: 81000 ==

== ENCOUNTER 2024-07-26 11:30 | Outpatient (CLI) | payer BC, MEDICAID, SELFPAY ==
[2024-07-26 13:44] LABS: Estmated Average Glucose 255; Hemoglobin A1C 10.5 % (4.0-6.0)
== END 2024-07-26 11:31 | disposition home or self-care (01) ==
LOC: LAB 11:31
PROVIDERS: PCP Family Medicine; Visit Provider Internal Medicine
DX: E03.9 Hypothyroidism, unspecified (principal); E10.65 Type 1 diabetes mellitus with hyperglycemia
CPT/HCPCS: 36415; 83036

== ENCOUNTER → 2024-08-26 09:49 | Outpatient (BNVA) | payer BC, MEDICAID, SELFPAY | PROVIDERS: PCP Family Medicine; Visit Provider Family Medicine | DX: Z12.4 Encounter for screening for malignant neoplasm of cervix (principal) | CPT/HCPCS: 87491; 87591; 87624 ==

== ENCOUNTER 2024-08-30 10:23 | Outpatient (CLI) | payer BC, MEDICAID, SELFPAY ==
[2024-08-30 11:45] LABS: Creatinine Urine, Random 259 mg/dL (28-217); Microalbum Creatinine Ratio Ur 15 mg/dL (0-20); Microalbumin Random Urine 4 ug/dL (0-20)
[2024-08-31 12:48] LABS: Chlamydia Trachomatis RNA TMA NOT DETECTED (NOT DETECTED); Neisseria Gonorrhoeae RNA, TMA NOT DETECTED (NOT DETECTED)
[2024-08-31 16:00] LABS: Trichomonas Vaginalis RNA NOT DETECTED (NOT DETECTED)
== END 2024-08-30 10:24 | disposition home or self-care (01) ==
LOC: LAB 10:26
PROVIDERS: PCP Family Medicine; Visit Provider Internal Medicine
DX: E03.9 Hypothyroidism, unspecified; E10.65 Type 1 diabetes mellitus with hyperglycemia; N89.8 Other specified noninflammatory disorders of vagina
CPT/HCPCS: 36415; 82044; 87491; 87591

== ENCOUNTER 2024-09-06 18:15 | Emergency (ER) | payer BC, MEDICAID, SELFPAY ==
[2024-09-06 18:31] VITALS: BP 116/72; PULSE 91; RESP 18; TEMP 36.7; O2SAT 95; BMI 35.5
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
--- NOTE | 2024-09-06 20:05 | ED_ITS ---
HPI - Extremity Problem General: Chief complaint: Extremity Injury, Lower Stated complaint: Left foot Injury Time Seen by Provider: 09/06/24 19:02 Source: patient Mode of arrival: wheelchair Limitations: no limitations History of Present Illness: Patient is a 33-year-old female present to the emergency department complaining of left ankle and foot pain onset about an hour prior to arrival. States the pain is diffuse, does radiate up the lateral aspect of her left leg. States she is diabetic and does have a history of neuropathy, states she does take gabapentin. She denies any long road trips or history of blood clots, denies any calf pain. The pain started when she states she stepped wrong and has had worsening pain since. She does arrive in a wheelchair, stating that any bearing of weight causes increase in pain. She has not taken anything for pain to this point. MD Complaint: extremity pain (Lateral left lower leg) and joint pain (Left an kle) Onset (ago): hour(s) Pain Consistency: constant Location: left and lower extremity Radiation: proximal Exacerbating factors: weight bearing Associated symptoms: Deny chest pain, fever(s) or rash Related Data Previous Rx's Medication Instructions Recorded Diabetic shoes & inserts #1 ea 07/27/20 pen needle, diabetic 29 gauge x #360 ea 02/16/2112/02 (BD Ultra-Fine Original Pen Needle) lancets 33 gauge (OneTouch Delica #360 ea 08/21/21 Lancets) blood-glucose meter,continuous #1 ea 01/22/22 (Dexcom G6 Assistant Professor Of Geography) insulin pump cartridge #30 ea 08/06/22 gabapentin 300 mg capsule 300 mg PO TID 90 days #270 caps 10/01/22 blood sugar diagnostic #100 ea 03/27/23 blood sugar diagnostic (Blood #100 ea 09/01/23 Glucose Test strips) blood-glucose meter (Blood Glucose #1 ea 09/01/23 Monitoring kit) ondansetron 4 mg disintegrating 4 mg PO Q8H PRN nausea and 09/09/23 tablet vomiting #30 tabs insulin pump cartridge,automated #1 ea 09/26/23 dose,BT with controller subcutaneous (Omnipod 5 G6 Intro Kit (Gen 5) subcutaneous cartridge with controller) duloxetine 20 mg capsule,delayed 20 mg PO BID 90 days #180 caps 03/18/24 release furosemide 20 mg tablet (Lasix) 40 mg (2 x 20 mg) PO DAILY 90 days 03/18/24 #135 tabs levetiracetam 750 mg tablet 750 mg PO BID 90 days #180 tabs 03/18/24 (Keppra) metoprolol succinate 25 mg 25 mg PO DAILY 90 days #90 tabs 03/18/24 tablet,extended release 24 hr potassium chloride 10 mEq 10 meq PO DAILY 90 days #90 tabs 03/18/24 tablet,extended release insulin aspart U-100 100 unit/mL See Rx Instructions .Route 04/27/24 subcutaneous solution (Novolog .COMPLEX #30 mL U-100 Insulin aspart) insulin pump cart,automated,BT #10 ea 05/26/24 (Omnipod 5 G6 Pods (Gen 5) subcutaneous cartridge) liraglutide 0.6 mg/0.1 mL (18 mg/3 See Rx Instructions .Route 06/16/24 mL) subcutaneous pen injector .COMPLEX #54 mL (Victoza 3-Gabriel) fluconazole 150 mg tablet 150 mg PO Q3D 2 doses #2 tabs 06/22/24 zolpidem 10 mg tablet 10 mg PO BEDTIME 30 days #30 tabs 06/22/24 levothyroxine 125 mcg tablet See Rx Instructions .Route 07/12/24 .COMPLEX #34 tabs blood-glucose sensor (Dexcom G6 #3 ea 07/19/24 Sensor device) blood-glucose transmitter (Dexcom #1 ea 08/10/24 G6 Transmitter device) fluconazole 150 mg tablet 150 mg PO Q3D 2 doses #2 tabs 08/26/24 metronidazole 500 mg tablet 500 mg PO BID 7 days #14 tabs 08/26/24 hydroxychloroquine 200 mg tablet See Rx Instructions .Route 09/06/24 .COMPLEX #60 tabs Allergies Allergy/AdvReac Type Severity Reaction Status Date / Time adhesive tape Allergy Unknown UNKNOWN Verified 09/06/24 18:35 clarithromycin [From Biaxin] Allergy Unknown UNKNOWN Verified 09/06/24 18:35 Penicillins Allergy Unknown UNKNOWN Verified 09/06/24 18:35 Review of Systems General: Reports: 10 or more systems reviewed and unremarkable except in HPI and below Const: Denies: fever(s) or chills Card: Denies: chest pain Resp: Denies: dyspnea or productive cough GI: Denies: abdominal pain, nausea, vomiting or diarrhea : Denies: flank pain Musc: Reports: extremity pain, joint pain and other (No calf pain); Denies: neck pain, back pain, extremity swelling, joint swelling, joint redness, joint warmth, limited range of motion or muscle weakness Skin/Breast: Denies: rash Neuro: Denies: headache(s), numbness in extremities or weakness in extremities PFSH ED PFSH: Medical History Seasonal allergies AV (generalized anxiety disorder) Insomnia Failed trazodone Essential hypertension Off lisinopril due to low BP. Scoliosis Epilepsy Type 1 diabetes mellitus Hypothyroidism Surgical History H/O section S/P cholecystectomy Family History Other Hypertension Social History Smoking and tobacco/nicotine status: never used tobacco/nicotine Second hand smoke exposure: No Alcohol intake: never Substance/Drug Use: never Do you think of yourself as: Straight/Heterosexual Current gender identity: Female Female Reproductive History: Spontaneous abortions: No Physical Exam Const: COMMON NORMALS: no acute distress, patient oriented x3, no limitations, healthy appearing, alert and well nourished HENMT: COMMON NORMALS: normocephalic and atraumatic HEAD & SCALP: normocephalic and atraumatic Neck/C-Spine: COMMON NORMALS: full ROM, supple and no meningeal signs Resp: COMMON NORMALS: normal respiratory effort, No use of accessory muscles and clear to auscultation bilaterally AUSCULTATION: clear to auscultation bilaterally Cardio: COMMON NORMALS: regular rate and regular rhythm RATE: regular rate RHYTHM: regular rhythm Extremity: COMMON NORMALS: normal to inspection, full ROM, capillary refill normal, no joint enlargement and no clubbing, cyanosis or edema NARRATIVE EXTREMITY EXAM: 2+ PT/DP pulses to left lower extremity. No calf tenderness. Diffuse tenderness to palpation of the left ankle joint, as well as to the dorsum of the left foot with no obvious signs of trauma or deformity. Distal sensations are intact. Strength 5/5 in her left lower extremity. Normal knee examination. Pain with range of motion passively of the left ankle. Neuro: COMMON NORMALS: patient oriented x3, moves all extremities, no focal motor deficits and no sensory deficits noted SENSORIUM/ORIENTATION: Yes alert MENINGEAL SIGNS: Yes no meningeal signs Skin: COMMON NORMALS: no rashes or lesions noted GENERAL SKIN EXAM: no rashes or lesions noted Course Vital Signs: Vital signs: Vital Signs Temperature 98.0 F 09/06/24 18:31 Pulse Rate 88 09/06/24 22:35 Respiratory Rate 18 09/06/24 22:35 Blood Pressure 121/76 09/06/24 22:35 Pulse Oximetry 96 09/06/24 22:35 Oxygen Delivery Me thod Room Air 09/06/24 18:31 MDM - Extremity (Nontraumatic) Medical Decision Making Patient presented for left foot injury, mechanism very unclear as there was no significant injury. Patient had noted she just put weight on her left foot and felt the pain. History of neuropathy as well as diabetes, she takes gabapentin. X-ray showed a fracture of the navicular bone as well as a potential avulsion injury to the cuboid on that left foot, and we will refer to podiatry after placing her in a boot. She is encouraged to continue her gabapentin and follow- up with her primary care provider as needed, and return precautions given. Lab Data Radiology Impressions Ankle X-Ray 09/06/24 19:51 IMPRESSION: Small linear osseous fragment suggestive of small avulsion fragment of the lateral aspect of the cuboid. Foot X-Ray 09/06/24 19:51 IMPRESSION: Acute intra-articular navicular fracture. All radiology interpretation(s) finalized by discharge Discharge Plan Discharge Patient Disposition: Home Clinical Impression: Closed navicular fracture of left foot, Cuboid fracture Condition: Stable Prescriptions: No Action (DME) pen needle, diabetic [BD Ultra-Fine Orig Pen Needle] 29 gauge x 1/2 needle See Rx Instructions .ROUTE .MEDSUPPLY Qty: 360 3RF Rx Instructions: use with insulin 4 times a day (DME) Dexcom G6 Assistant Professor Of Geography Misc See Rx Instructions .Route Qty: 1 0RF Rx Instructions: As directed (DME) Diabetic shoes & inserts See Rx Instructions .Route .MEDSUPPLY Qty: 1 0RF Rx Instructions: As directed (DME) lancets [OneTouch Delica Lancets] 33 gauge misc See Rx Instructions .ROUTE .MEDSUPPLY Qty: 360 3RF Rx Instructions: test blood sugar 4 times a day furosemide [Lasix] 20 mg tablet 40 mg PO DAILY 90 Days Qty: 135 1RF Rx Instructions: 1-2 daily as directed duloxetine 20 mg capsule,delayed release(DR/EC) 20 mg PO BID 90 Days Qty: 180 1RF levetiracetam [Keppra] 750 mg tablet 750 mg PO BID 90 Days Qty: 180 1RF metoprolol succinate 25 mg tablet extended release 24 hr 25 mg PO DAILY 90 Days Qty: 90 1RF potassium chloride 10 mEq tablet extended release 10 meq PO DAILY 90 Days Qty: 90 1RF gabapentin 300 mg capsule 300 mg PO TID 90 Days Qty: 270 0RF (DME) blood sugar diagnostic Strip See Rx Instructions .ROUTE .MEDSUPPLY Qty: 100 6RF Rx Instructions: test 3 times daily ondansetron 4 mg tablet,disintegrating 4 mg PO Q8H PRN (Reason: nausea and vomiting) Qty: 30 0RF (DME) Blood Glucose Test Strip See Rx Instructions .Route Qty: 100 0RF Rx Instructions: check BG three times per day (DME) blood-glucose meter [Blood Glucose Monitoring] Kit See Rx Instructions .Route Qty: 1 0RF Rx Instructions: As directed zolpidem 10 mg tablet 10 mg PO BEDTIME 30 Days Qty: 30 3RF fluconazole 150 mg tablet 150 mg PO Q3D 0 Days Qty: 2 1RF Rx Instructions: may repeat second dose 72 hrs after first dose if symptoms persist metronidazole 500 mg tablet 500 mg PO BID 7 Days Qty: 14 0RF fluconazole 150 mg tablet 150 mg PO Q3D 0 Days Qty: 2 1RF Rx Instructions: may repeat second dose 72 hrs after first dose if symptoms persist (DME) insulin pump cartridge Cartridge See Rx Instructions .Route Qty: 30 3RF Rx Instructions: As directed, change pod every 3 days (DME) Omnipod 5 G6 Intro Kit (Gen 5) Cartridge See Rx Instructions .ROUTE .MEDSUPPLY Qty: 1 0RF Rx Instructions: As directed insulin aspart U-100 [Novolog U-100 Insulin aspart] 100 unit/mL solution See Rx Instructions .ROUTE .COMPLEX Qty: 30 3RF Dose Instruction: VIA PUMP WITH A MAX DOSE OF 60 UNITS/DAY. Rx Instructions: VIA PUMP WITH A MAX DOSE OF 60 UNITS/DAY. (DME) Omnipod 5 G6 Pods (Gen 5) Cartridge See Rx Instructions .ROUTE .MEDSUPPLY Qty: 10 3RF Rx Instructions: change pod every 3 days Victoza 3-Gabriel 0.6 mg/0.1 mL (18 mg/3 mL) pen injector See Rx Instructions .ROUTE .COMPLEX Qty: 54 0RF Dose Instruction: inject 0.6mg SUBCUTANEOUSLY every DAY FOR 7 DAYS; THEN 1.2mg SUBCUTANEOUSLY daily FOR 7 DAYS; THEN 1.8mg SUBCUTANEOUSLY EVERY DAY Rx Instructions: inject 0.6mg SUBCUTANEOUSLY every DAY FOR 7 DAYS; THEN 1.2mg SUBCUTANEOUSLY daily FOR 7 DAYS; THEN 1.8mg SUBCUTANEOUSLY EVERY DAY levothyroxine 125 mcg tablet See Rx Instructions .ROUTE .COMPLEX Qty: 34 1RF Dose Instruction: TAKE ONE TABLET BY MOUTH DAILY FRI TILL FRIDAY, 2 ON SUNDAYS Rx Instructions: TAKE ONE TABLET BY MOUTH DAILY FRI TILL FRIDAY, 2 ON SUNDAYS (DME) Dexcom G6 Sensor Device See Rx Instructions .ROUTE .COMPLEX Qty: 3 3RF Dose Instruction: CHANGE EVERY 10 DAYS Rx Instructions: CHANGE EVERY 10 DAYS (DME) Dexcom G6 Transmitter Device See Rx Instructions .ROUTE .COMPLEX Qty: 1 0RF Dose Instruction: DIRECTED Rx Instructions: DIRECTED hydroxychloroquine 200 mg tablet See Rx Instructions .ROUTE .COMPLEX Qty: 60 0RF Dose Instruction: TAKE ONE TABLET BY MOUTH TWICE A DAY Rx Instructions: TAKE ONE TABLET BY MOUTH TWICE A DAY Discharge Orders: Discharge ED (Routine); Ordered 09/06/24 Ordered By: Casey Osorio Other Ambulatory Orders: DME: Miscellaneous (Order) Location: None Selected Ordered By: Tank Rashid Referrals: Moraima Medrano MD [Primary Care Provider] - Discharge Diet: Usual diet Discharge Activity: Limit activity as instructed Patient Instructions: Foot Fracture in Adults (ED) Activity Restrictions/Additional Instructions: Walking boot. Continue gabapentin and pain medications at home. Follow-up with podiatry. Return with any new or worsening. Coding Level of Care Code ED Admissions Director for Mushtaq Salmeron
[2024-09-06] MEDS: ketorolac 60 mg/2 mL INJ IM (20:19)
[2024-09-06 22:35] VITALS: BP 121/76; PULSE 88; RESP 18; O2SAT 96
--- NOTE | 2024-09-07 09:04 | DCPLANNER ---
Message sent to Podiatry for follow up foot fx
== END 2024-09-06 22:41 | disposition home or self-care (01) ==
PROVIDERS: Emergency Provider Physician Assistant; PCP Family Medicine
DX: S92.252A Displaced fracture of navicular [scaphoid] of left foot, initial encounter for closed fracture (principal); S92.212A Displaced fracture of cuboid bone of left foot, initial encounter for closed fracture; Z79.4 Long term (current) use of insulin; I10 Essential (primary) hypertension; X50.1XXA Overexertion from prolonged static or awkward postures, initial encounter; E10.40 Type 1 diabetes mellitus with diabetic neuropathy, unspecified
CPT/HCPCS: 73610; 73630; 96372; 99284; J1885

== ENCOUNTER → 2024-09-13 08:33 | Outpatient (BNVA) | payer BC, MEDICAID, SELFPAY | PROVIDERS: PCP Family Medicine; Visit Provider Podiatrist Foot & Ankle Surgery | DX: S92.255A Nondisplaced fracture of navicular [scaphoid] of left foot, initial encounter for closed fracture (principal); S92.215A Nondisplaced fracture of cuboid bone of left foot, initial encounter for closed fracture; W10.8XXA Fall (on) (from) other stairs and steps, initial encounter | CPT/HCPCS: 73630 ==

== ENCOUNTER 2024-09-15 06:03 | Day surgery (SDC) | payer BC, MEDICAID, SELFPAY ==
--- NOTE | 2024-09-14 15:06 | P.ANESASSM_ITS ---
Pre-Anesthetic Assessment Height/Weight: Height 5 ft 6 in Preop Diagnosis: Navicular fracture Operation Date: 09/15/24 07:00 Proposed Procedures p ORIF left navicular fracture(Left) - Casey Hayden DPM Was Beta Bassam taken within 24 hours: N/A Was Clonidine taken within 24 hours: N/A Social No alcohol and No tobacco Exam alert, oriented x 3, clear to auscultation bilaterally and regular rate & rhythm Airway Submandibular: within normal limits Cervical ROM: within normal limits Mallampati: Class II Dentition: full Anesthetic Plan ASA status: 3 Anesthesia: General and Regional (specify below) Other: No prior issues with anesthesia NPO since last night Patient has a history of seizures, seizure 1 year ago. On chronic Keppra. Plan for preop Versed History of hypertension Type 1 diabetes on insulin pump. Patient also on liraglutide, taken 09/09/2024 Hypothyroidism on Synthroid On chronic Lasix for lower extremity swelling BMP ordered METs greater than 4 Plan for general anesthesia with post induction popliteal block Medications/Allergies Home Medications Medication Instructions Recorded Confirmed Last Taken Type Diabetic shoes & inserts #1 ea 07/27/20 09/13/24 Unknown Rx pen needle, diabetic 29 gauge x #360 ea 02/16/21 09/13/24 Unknown Rx 1/2 (BD Ultra-Fine Original Pen Needle) lancets 33 gauge (OneTouch Delica #360 ea 08/21/21 09/13/24 Unknown Rx Lancets) blood-glucose meter,continuous #1 ea 01/22/22 09/13/24 Unknown Rx (Dexcom G6 Middleware Systems Architect) insulin pump cartridge #30 ea 08/06/22 09/13/24 Unknown Rx gabapentin 300 mg capsule 300 mg PO TID 90 days #270 caps 10/01/22 09/14/24 09/14/24 Rx blood sugar diagnostic #100 ea 03/27/23 09/13/24 Unknown Rx blood sugar diagnostic (Blood #100 ea 09/01/23 09/13/24 Unknown Rx Glucose Test strips) blood-glucose meter (Blood Glucose #1 ea 09/01/23 09/13/24 Unknown Rx Monitoring kit) insulin pump cartridge,automated #1 ea 09/26/23 09/13/24 Unknown Rx dose,BT with controller subcutaneous (Omnipod 5 G6 Intro Kit (Gen 5) subcutaneous cartridge with controller) duloxetine 20 mg capsule,delayed 20 mg PO BID 90 days #180 caps 03/18/24 09/14/24 09/14/24 Rx release furosemide 20 mg tablet (Lasix) 40 mg (2 x 20 mg) PO DAILY 90 days 03/18/24 09/14/24 09/14/24 08:00 Rx #135 tabs levetiracetam 750 mg tablet 750 mg PO BID 90 days #180 tabs 03/18/24 09/14/24 09/15/24 Rx (Keppra) metoprolol succinate 25 mg 25 mg PO DAILY 90 days #90 tabs 03/18/24 09/14/24 09/15/24 Rx tablet,extended release 24 hr potassium chloride 10 mEq 10 meq PO DAILY 90 days #90 tabs 03/18/24 09/14/24 09/14/24 07:00 Rx tablet,extended release insulin aspart U-100 100 unit/mL See Rx Instructions .Route 04/27/24 09/14/24 09/14/24 Rx subcutaneous solution (Novolog .COMPLEX #30 mL U-100 Insulin aspart) insulin pump cart,automated,BT #10 ea 05/26/24 09/13/24 Unknown Rx (Omnipod 5 G6 Pods (Gen 5) subcutaneous cartridge) liraglutide 0.6 mg/0.1 mL (18 mg/3 See Rx Instructions .Route 06/16/24 09/14/24 09/09/24 Rx mL) subcutaneous pen injector .COMPLEX #54 mL (Victoza 3-Gabriel) zolpidem 10 mg tablet 10 mg PO BEDTIME 30 days #30 tabs 06/22/24 09/14/24 09/14/24 Rx levothyroxine 125 mcg tablet See Rx Instructions .Route 07/12/24 09/14/24 09/14/24 Rx .COMPLEX #34 tabs blood-glucose sensor (Dexcom G6 #3 ea 07/19/24 09/13/24 Unknown Rx Sensor device) blood-glucose transmitter (Dexcom #1 ea 08/10/24 09/13/24 Unknown Rx G6 Transmitter device) hydroxychloroquine 200 mg tablet See Rx Instructions .Route .COMPLEX 09/14/24 09/14/24 09/14/24 History (Plaquenil) Allergies Allergy/AdvReac Type Severity Reaction Status Date / Time adhesive tape Allergy Unknown UNKNOWN Verified 10/14/24 08:27 clarithromycin [From Biaxin] Allergy Unknown UNKNOWN Verified 09/13/24 08:27 Penicillins Allergy Unknown UNKNOWN Verified 09/13/24 08:27 PENDING SALE TO [facility] Anesthesia Medical History Seasonal allergies AV (generalized anxiety disorder) Insomnia Failed trazodone Essential hypertension Off lisinopril due to low BP. Scoliosis Epilepsy Type 1 diabetes mellitus Hypothyroidism Surgical History H/O section S/P cholecystectomy Family History Other Hypertension Social History Smoking and tobacco/nicotine status: never used tobacco/nicotine Second hand smoke exposure: No Alcohol intake: never Substance/Drug Use: never Do you think of yourself as: Straight/Heterosexual Current gender identity: Female Female Reproductive History Date of last menstrual period: 09/02/24 Spontaneous abortions: No Data Anesthesia Cardiac Studies: Echocardiogram Ultrasound 06/02/20 Holter Monitor 01/03/21
[2024-09-15] VITALS (14 sets, daily range): BP systolic 103–119; BP diastolic 66–78; PULSE 63–76; RESP 9–20; TEMP 36.1–36.6; O2SAT 95–100; BMI 35.5
--- NOTE | 2024-09-15 | XR_ITS ---
WS: [id number] Left foot, C-arm fluoroscopy views, 09/15/2024 Clinical Data: ROBLES PICS Comparison: Left foot, 09/13/2024 Findings: Dr. Hayden placed a transverse orthopedic screws to reduce the fracture of the tarsal navicular. XR/XR foot LT min 3V* [id number] Impression: Internal fixation of the tarsal navicular fracture of the left foot.
[2024-09-15 06:20] LABS: OR HCG Qualitative Urine Negative (Negative)
[2024-09-15] MEDS: gabapentin 300 mg Capsule PO (06:46)
--- NOTE | 2024-09-15 06:46 | P.HPUD_ITS ---
Surgery/Procedure H&P Update DATE OF PROCEDURE: September 15, 2024 DATE H&P PERFORMED: 09/08/24 H&P UPDATE INFORMATION: I have reviewed H&P completed within last 30 days, I have examined patient prior to procedure, No changes to prior documentation and H&P is in [facility] EMR on date indicated PREOP DIAGNOSIS: Navicular fracture PLANNED PROCEDURE: Operation Date: 09/15/24 07:00 Proposed Procedures p ORIF left navicular fracture(Left) - Casey Hayden DPM
[2024-09-15] MEDS: acetaminophen 1,000 MG/100 ML PIGGYBACK 400 MG IV (06:47)
[2024-09-15] MEDS: sodium chloride 0.9% 1,000 ML 30 ML IV (06:48)
[2024-09-15 07:13] LABS: Glucose Point of Care 178 mg/dL (70-110)
[2024-09-15 07:23] LABS: Anion Gap 11.9 (5-19); Blood Urea Nitrogen 15 mg/dL (6-20); Calcium 8.4 mg/dL (8.5-10.5); Carbon Dioxide 27 mmol/L (22-29); Chloride 103 mmol/L (98-107); Creatinine Clr Calc Pharmacy 157.4581; Glomerular Filtration Rate 114.4 mL/min (90-130); Glucose 222 mg/dL (65-115); Osmolality Calculated 294 mOsm/kg (285-295); Potassium 3.9 mmol/L (3.5-5.1); Sodium 138 mmol/L (136-145)
[2024-09-15] MEDS: clindamycin 600 MG/50 ML PREMIX 100 MG IV (07:33)
--- NOTE | 2024-09-15 07:58 | SUR.OPER ---
pop block, 30ml 0.5% rop injected
--- NOTE | 2024-09-15 08:02 | ANES.PROC ---
Anesthesia Procedures Procedure/Date: 09/15/24 Nerve Block ^: Nerve Block 1: Main Anesthesia: general anesthesia Time Out Performed: Yes Consent: requested by attending/covering physician and from patient Nerve block location: popliteal Anesthesia monitors applied: pulse oximetry, EKG, BP cuff and oxygen Nerve block position: supine Anesthetic Used: ropivicaine 0.5% Amount of anesthesia used (mL): 30 Ultrasound used to: recognize landmarks Interscalene/Femoral BLK: other needle (pjunk) Injection: neg aspiration of heme Patient Tolerated Procedure: well Complications: none
--- NOTE | 2024-09-15 08:31 | P.BOP_ITS ---
Date of procedure: 09/15/2024 Surgeon name: Otilia JarquinPAlex Education Assistant(s) name(s): Jones Procedure(s) performed: Open reduction internal fixation left navicular fracture Description of findings: Left mid body navicular fracture Estimated blood loss: 5 cc Tourniquet time: 28 minutes Specimen(s) removed: None Post-operative diagnosis: Left foot navicular fracture
--- NOTE | 2024-09-15 08:32 | P.OP_ITS ---
Operative Report Date of procedure: September 15, 2024 Surgeon: Casey Hayden DPM Procedure: Date of procedure: 09/15/2024 Pre-op diagnosis: Left navicular body fracture Post-op diagnosis: Same Post-op findings: Nondisplaced navicular body fracture left foot Procedure done: ORIF left navicular fracture CPT 77530 Implants: One 2.5 micro fully threaded screw from [employer] Specimens removed: None Surgeon: Dr. Casey Hayden DPM Rn Telemetry: Jones Estimated blood loss: 5 cc Tourniquet time: 28 minutes Complications: None Patient is a 33-year-old female that has a history of left navicular body fracture. The extent of the injury necessitates open reduction internal fixation. A lengthy discussion regarding the procedure, including risks and complications has been had with the patient and is noted in the recent clinic note. Written and verbal consent have been obtained. All patient questions have been answered to the patient?s satisfaction. No written or verbal guarantees have been given or implied. The patient has been NPO since midnight. The history has been reviewed and the history and physical is current. The signed consent was confirmed and placed in the patient chart. Patient imaging has been reviewed and is consistent with the diagnosis. Under mild sedation, the patient was brought into the operating room and placed on the table in the supine position. IV antibiotics were given by the anesthesia team as preoperative surgical prophylaxis. General sedation was then performed by the anesthesiateam. A pneumatic tourniquet was then placed about the left ankle. Anesthesia team performed a popliteal block. The operative extremity was then prepped and draped in the usual fashion. The extremity was then elevated and exsanguinated before the tourniquet was inflated to 250 mmHg. After inflation, the following procedure was then performed. Attention was directed to the left foot where a stab incision was made dorsal medially and dorsal laterally. Blunt dissection was carried down to subcutaneous tissue using a mosquito hemostat. A [id number] reduction clamp was then inserted into the both of these incisions to reduce the navicular to the appropriate position. Once reduced to appropriate anatomic position guidewires were driven from medial to lateral across the navicular to maintain position and to act as a guidewire for fixation. A stab incision was made inferior to the dorsal medial incision. The wire was overdrilled before a 2.5 fully threaded compression screw was inserted over the wire across the navicular fracture site. Good positioning of the screw was noted clinically as well as on C-arm imaging. The talonavicular joint was noted to be unaffected. It was decided that the single screw was adequate fixation. Pins were removed from the foot. Final x-ray images were obtained. Incision sites were irrigated with copious amounts of sterile saline before attention was directed to closure. Incisions were closed using 4-0 nylon in horizontal mattress fashion before being dressed with Xeroform, 4 x 4 gauze, Kerlix, Donte. Patient was placed in cam boot. Tourniquet was let down and good hyperemic response was noted to all digits of the left foot. The patient tolerated the procedure and anesthesia well and without complication. The patient was transported from the operating room to the recovery room with vital signs stable and vascular status intact to all digits o f the left foot. The patient was given both written and verbal instructions to remain nonweightbearing to the operative extremity, to keep dressings/splint clean, dry and intact and to take pain medication as directed. The patient will follow-up in the outpatient setting at their scheduled appointment. The patient was discharged with my personal number and was instructed to call if any questions or issues should arise. They were discharged home once anesthesia criteria was met.
--- NOTE | 2024-09-15 08:55 | PC.NURSE ---
[id number] MATI Mcintosh notified of blood sugar at 232 - verbal order to let patient turn insulin pump on once awake and proceed with pts insulin protocol
[2024-09-15 08:57] LABS: Glucose Point of Care 232 mg/dL (70-110)
[2024-09-15] MEDS: HYDROcodone-acetaminophen 5-325 mg Tablet 1 TAB PO (09:40)
--- NOTE | 2024-09-15 10:25 | ANE.PACU2 ---
Inpatient post-anesthesia follow up: Airway intact: Yes Vital signs: Temperature 98 F Pulse Rate 65 Respiratory Rate 18 Blood Pressure 112/75 Pulse Oximetry 98 Oxygen Delivery Me thod Room Air Oxygen Flow Rate 8 Fraction of Inspir ed Oxygen Hydration adequate: Yes Nausea and vomiting: No Pain level: 1 Mental status: Baseline
== END 2024-09-15 10:25 | disposition home or self-care (01) ==
PROVIDERS: Student in an Organized Health Care Education/Training Program; PCP Family Medicine; Visit Provider Podiatrist Foot & Ankle Surgery
PROC: (CPT 28465; principal; 2024-09-15 07:00)
DX: S92.255A Nondisplaced fracture of navicular [scaphoid] of left foot, initial encounter for closed fracture (principal); X50.1XXA Overexertion from prolonged static or awkward postures, initial encounter; I10 Essential (primary) hypertension; E10.9 Type 1 diabetes mellitus without complications; Z79.4 Long term (current) use of insulin; E03.9 Hypothyroidism, unspecified; F41.1 Generalized anxiety disorder
CPT/HCPCS: 28465; 36415; 36416; 73630; 76000; 80048; 81025; 82962; C1713; J0131; J0330; J1100; J2250; J2371; J2405; J2704; J3010; J3490; J7030

== ENCOUNTER → 2024-09-29 13:20 | Outpatient (BNVA) | payer BC, MEDICAID, SELFPAY | PROVIDERS: PCP Family Medicine; Visit Provider Podiatrist Foot & Ankle Surgery | DX: Z98.890 Other specified postprocedural states (principal); S92.255A Nondisplaced fracture of navicular [scaphoid] of left foot, initial encounter for closed fracture; S99.929A Unspecified injury of unspecified foot, initial encounter; X58.XXXA Exposure to other specified factors, initial encounter | CPT/HCPCS: 73630 ==

== ENCOUNTER → 2024-10-13 13:06 | Outpatient (BNVA) | payer BC, MEDICAID, SELFPAY | PROVIDERS: PCP Family Medicine; Visit Provider Podiatrist Foot & Ankle Surgery | DX: M79.672 Pain in left foot (principal); Z98.890 Other specified postprocedural states; S92.255A Nondisplaced fracture of navicular [scaphoid] of left foot, initial encounter for closed fracture; T81.30XA Disruption of wound, unspecified, initial encounter; X58.XXXA Exposure to other specified factors, initial encounter; Y83.8 Other surgical procedures as the cause of abnormal reaction of the patient, or of later complication, without mention of misadventure at the time of the procedure | CPT/HCPCS: 73630 ==

== ENCOUNTER 2024-10-22 13:57 | Emergency (ER) | payer BC, MEDICAID, SELFPAY ==
[2024-10-22 14:19] VITALS: BP 143/75; PULSE 89; RESP 17; TEMP 36.7; O2SAT 98; BMI 35.6
--- NOTE | 2024-10-22 15:47 | XRR_ITS ---
PROCEDURE INFORMATION: Exam: XR Left Tibia and Fibula Exam date and time: 10/22/2024 3:58 PM Age: 34 years old Clinical indication: Lower leg; Prior surgery; Surgery date: <1 month; Surgery type: Screw in foot; Patient HX: PT had a screw put in her foot 1 month ago. PT states she began having pain in her left calf today. Sharp pain that doesn radiate. I see no evidence of trauma, swelling, warmth or redness. PT did flinch when i touched the area. Pulse palpable. Cap refil normal. Her foot is cold to the touch. TECHNIQUE: Imaging protocol: Radiologic exam of the left tibia and fibula. Views: 2 views. COMPARISON: CR XR foot LT min 3V* [id number] 10/13/2024 1:19 PM FINDINGS: Bones/joints: Normal. Soft tissues: Normal. XR/XR tibia fibula LT 2V [id number] IMPRESSION: No acute findings.
--- NOTE | 2024-10-22 16:05 | ED_ITS ---
HPI - Extremity Problem General: Chief complaint: Extremity Problem,Nontraumatic Stated complaint: left calf pain post op Time Seen by Provider: 10/22/24 15:47 History of Present Illness: 34-year-old female who had recent ankle surgery and had a screw placed in her ankle who has been on a leg scooter for about a month now who presents today with her daughter with hyperglycemia but checked in because she is been having pain in the back of her leg. She has not talked to Dr. Hayden about this yet. There is no redness. No swelling. No Homans' sign. Just some diffuse muscle pain. No chest pain. No shortness of breath. Related Data Previous Rx's Medication Instructions Recorded Diabetic shoes & inserts #1 ea 07/27/20 pen needle, diabetic 29 gauge x #360 ea 02/16/2112/02 (BD Ultra-Fine Original Pen Needle) lancets 33 gauge (OneTouch Delica #360 ea 08/21/21 Lancets) blood-glucose meter,continuous #1 ea 01/22/22 (Dexcom G6 Envelope Press Operator) insulin pump cartridge #30 ea 08/06/22 blood sugar diagnostic #100 ea 03/27/23 blood sugar diagnostic (Blood #100 ea 09/01/23 Glucose Test strips) blood-glucose meter (Blood Glucose #1 ea 09/01/23 Monitoring kit) insulin pump cartridge,automated #1 ea 09/26/23 dose,BT with controller subcutaneous (Omnipod 5 G6 Intro Kit (Gen 5) subcutaneous cartridge with controller) insulin aspart U-100 100 unit/mL See Rx Instructions .Route 04/27/24 subcutaneous solution (Novolog .COMPLEX #30 mL U-100 Insulin aspart) liraglutide 0.6 mg/0.1 mL (18 mg/3 See Rx Instructions .Route 06/16/24 mL) subcutaneous pen injector .COMPLEX #54 mL (Victoza 3-Gabriel) levothyroxine 125 mcg tablet See Rx Instructions .Route 07/12/24 .COMPLEX #34 tabs blood-glucose sensor (Dexcom G6 #3 ea 07/19/24 Sensor device) blood-glucose transmitter (Dexcom #1 ea 08/10/24 G6 Transmitter device) hydrocodone 5 mg-acetaminophen 325 1 tab PO Q6H PRN pain #28 tabs 09/15/24 mg tablet duloxetine 60 mg capsule,delayed 60 mg PO DAILY #180 caps 10/22/24 release (Cymbalta) gabapentin 300 mg capsule See Rx Instructions PO TID 30 days 09/21/24 #150 caps insulin pump cart,automated,BT #5 ea 09/27/24 (Omnipod 5 G6 Pods (Gen 5) subcutaneous cartridge) furosemide 20 mg tablet (Lasix) 40 mg (2 x 20 mg) PO DAILY 90 days 09/28/24 #135 tabs levetiracetam 750 mg tablet 750 mg PO BID 90 days #180 tabs 09/28/24 (Keppra) metoprolol succinate 25 mg 25 mg PO DAILY 90 days #90 tabs 09/28/24 tablet,extended release 24 hr potassium chloride 10 mEq 10 meq PO DAILY 90 days #90 tabs 09/28/24 tablet,extended release zolpidem 10 mg tablet 10 mg PO BEDTIME 30 days #30 tabs 09/28/24 doxycycline hyclate 100 mg capsule 100 mg PO BID #14 caps 10/13/24 mupirocin 2 % topical ointment 1 applic topical BID #15 grams 10/22/24 Allergies Allergy/AdvReac Type Severity Reaction Status Date / Time adhesive tape Allergy Unknown UNKNOWN Verified 10/13/24 13:07 clarithromycin [From Biaxin] Allergy Unknown UNKNOWN Verified 10/13/24 13:07 Penicillins Allergy Unknown UNKNOWN Verified 10/13/24 13:07 Review of Systems Narrative: Constitutional symptoms: Negative except as documented in HPI. Skin symptoms: Negative except as documented in HPI. Eye symptoms: Negative except as documented in HPI. ENMT symptoms: Negative except as documented in HPI. Respiratory symptoms: Negative except as documented in HPI. Cardiovascular symptoms: Negative except as documented in HPI. Gastrointestinal symptoms: Negative except as documented in HPI. Genitourinary symptoms: Negative except as documented in HPI. Musculoskeletal symptoms: Negative except as documented in HPI. Neurologic symptoms: Negative except as documented in HPI. Psychiatric symptoms: Negative except as documented in HPI. Endocrine symptoms: Negative except as documented in HPI. PFSH ED PFSH: Medical History Fibromyalgia Seasonal allergies AV (generalized anxiety disorder) Insomnia Failed trazodone Essential hypertension Off lisinopril due to low BP. Scoliosis Epilepsy Type 1 diabetes mellitus Hypothyroidism Surgical History H/O section S/P cholecystectomy Family History Other Hypertension Social History Smoking and tobacco/nicotine status: never used tobacco/nicotine Second hand smoke exposure: No Alcohol intake: never Substance/Drug Use: never Do you think of yourself as: Straight/Heterosexual Current gender identity: Female Female Reproductive History: Spontaneous abortions: No Physical Exam Narrative: EXAM NARRATIVE: General: Alert, no acute distress. Skin: warm and dry Head: Normocephalic Neck: Trachea midline Eye: Extraocular movements are intact. Ears, nose, mouth and throat: Oral mucosa moist Respiratory: Respirations are non-labored Musculoskeletal: Normal ROM Neurological: Alert and oriented, No focal neurological deficit observed. Psychiatric: Cooperative, appropriate mood & affect. Course Vital Signs: Vital signs: Vital Signs Temperature 98.1 F 10/22/24 14:19 Pulse Rate 89 10/22/24 14:19 Respiratory Rate 17 10/22/24 14:19 Blood Pressure 143/75 10/22/24 14:19 Pulse Oximetry 98 10/22/24 14:19 Oxygen Delivery Me thod Room Air 10/22/24 14:19 MDM - Extremity (Nontraumatic) Medical Decision Making X-ray of the left tibia and fibula: No acute fractures. Hardware appears intact. MDM: No evidence of DVT. There is no redness. No swelling. No Homans' sign. I do not believe she needs an ultrasound at this time. Assessment and plan: Muscle pain - Discharged home - Discussed plan with patient. Answered any questions. - Evaluation and treatment of this problem were appropriate in the emergency setting. XR interpretation done by ED provider, pending radiology final review Discharge Plan Discharge Patient Disposition: Home Clinical Impression: Calf pain Condition: Stable Prescriptions: No Action (DME) pen needle, diabetic [BD Ultra-Fine Orig Pen Needle] 29 gauge x 1/2 needle See Rx Instructions .ROUTE .MEDSUPPLY Qty: 360 3RF Rx Instructions: use with insulin 4 times a day (DME) Dexcom G6 Envelope Press Operator Misc See Rx Instructions .Route Qty: 1 0RF Rx Instructions: As directed (DME) Diabetic shoes & inserts See Rx Instructions .Route .MEDSUPPLY Qty: 1 0RF Rx Instructions: As directed (DME) lancets [OneTouch Delica Lancets] 33 gauge misc See Rx Instructions .ROUTE .MEDSUPPLY Qty: 360 3RF Rx Instructions: test blood sugar 4 times a day zolpidem 10 mg tablet 10 mg PO BEDTIME 30 Days Qty: 30 3RF furosemide [Lasix] 20 mg tablet 40 mg PO DAILY 90 Days Qty: 135 1RF Rx Instructions: 1-2 daily as directed levetiracetam [Keppra] 750 mg tablet 750 mg PO BID 90 Days Qty: 180 1RF metoprolol succinate 25 mg tablet extended release 24 hr 25 mg PO DAILY 90 Days Qty: 90 1RF potassium chloride 10 mEq tablet extended release 10 meq PO DAILY 90 Days Qty: 90 1RF (DME) blood sugar diagnostic Strip See Rx Instructions .ROUTE .MEDSUPPLY Qty: 100 6RF Rx Instructions: test 3 times daily (DME) Blood Glucose Test Strip See Rx Instructions .Route Qty: 100 0RF Rx Instructions: check BG three times per day (DME) blood-glucose meter [Blood Glucose Monitoring] Kit See Rx Instructions .Route Qty: 1 0RF Rx Instructions: As directed duloxetine [Cymbalta] 60 mg capsule,delayed release(DR/EC) 60 mg PO DAILY Qty: 180 1RF gabapentin 300 mg capsule See Rx Instructions PO TID 30 Days Qty: 150 5RF Rx Instructions: take 600mg in am, 300mg in afternoon and 600mg at hs orally daily; doxycycline hyclate 100 mg capsule 100 mg PO BID Qty: 14 0RF mupirocin 2 % ointment 1 applic topical BID Qty: 15 0RF (DME) insulin pump cartridge Cartridge See Rx Instructions .Route Qty: 30 3RF Rx Instructions: As directed, change pod every 3 days (DME) Omnipod 5 G6 Intro Kit (Gen 5) Cartridge See Rx Instructions .ROUTE .MEDSUPPLY Qty: 1 0RF Rx Instructions: As directed insulin aspart U-100 [Novolog U-100 Insulin aspart] 100 unit/mL solution See Rx Instructions .ROUTE .COMPLEX Qty: 30 3RF Dose Instruction: VIA PUMP WITH A MAX DOSE OF 60 UNITS/DAY. Rx Instructions: VIA PUMP WITH A MAX DOSE OF 25 UNITS/DAY. Victoza 3-Gabriel 0.6 mg/0.1 mL (18 mg/3 mL) pen injector See Rx Instructions .ROUTE .COMPLEX Qty: 54 0RF Dose Instruction: inject 0.6mg SUBCUTANEOUSLY every DAY FOR 7 DAYS; THEN 1.2mg SUBCUTANEOUSLY daily FOR 7 DAYS; THEN 1.8mg SUBCUTANEOUSLY EVERY DAY Rx Instructions: inject 0.6mg SUBCUTANEOUSLY every DAY FOR 7 DAYS; THEN 1.2mg SUBCUTANEOUSLY daily FOR 7 DAYS; THEN 1.8mg SUBCUTANEOUSLY EVERY DAY levothyroxine 125 mcg tablet See Rx Instructions .ROUTE .COMPLEX Qty: 34 1RF Dose Instruction: TAKE ONE TABLET BY MOUTH DAILY FRI TILL FRIDAY, 2 ON SUNDAYS Rx Instructions: TAKE ONE TABLET BY MOUTH DAILY FRI TILL FRIDAY, 2 ON SUNDAYS (DME) Dexcom G6 Sensor Device See Rx Instructions .ROUTE .COMPLEX Qty: 3 3RF Dose Instruction: CHANGE EVERY 10 DAYS Rx Instructions: CHANGE EVERY 10 DAYS (DME) Dexcom G6 Transmitter Device See Rx Instructions .ROUTE .COMPLEX Qty: 1 0RF Dose Instruction: DIRECTED Rx Instructions: DIRECTED ([facility] [place]) Omnipod 5 G6 Pods (Gen 5) Cartridge See Rx Instructions .ROUTE .COMPLEX Qty: 5 3RF Dose Instruction: CHANGE POD EVERY 3 DAYS Rx Instructions: CHANGE POD EVERY 3 DAYS hydrocodone-acetaminophen 5-325 mg tablet 1 tab PO Q6H PRN (Reason: pain) Qty: 28 0RF Discharge Orders: Discharge ED (Routine); Ordered 10/22/24 Ordered By: Marce Maza Referrals: Casey Hayden DPM [Family Provider] - Moraima Medrano MD [Primary Care Provider] - Discharge Diet: Usual diet Discharge Activity: Limit activity as instructed Patient Instructions: Opioid Safety, Pain Management Activity Restrictions/Additional Instructions: Thank you for choosing [facility] for your healthcare needs today. Please realize this is an emergency room and that we are providing you with a medical screening exam and this may not be complete and all inclusive of all the testing and or work up that you may need to determine your ailment or severity of your illness. You have been screened and evaluated and felt safe for discharge. Health conditions do change or evolve sometimes and as such it is important that you follow up with your Primary Doctor to be re checked, 3-5 days is a general good time frame for follow up. 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
[2024-10-22] MEDS: ibuprofen 600 mg Tablet PO (17:32)
[2024-10-22 17:36] VITALS: BP 121/83; PULSE 79; O2SAT 97
== END 2024-10-22 17:38 | disposition home or self-care (01) ==
PROVIDERS: Emergency Provider Emergency Medicine; Family Provider Podiatrist Foot & Ankle Surgery; PCP Family Medicine
DX: M79.605 Pain in left leg (principal); Z79.4 Long term (current) use of insulin; E11.65 Type 2 diabetes mellitus with hyperglycemia; I10 Essential (primary) hypertension
CPT/HCPCS: 73590; 99283

== ENCOUNTER → 2024-10-27 13:35 | Outpatient (BNVA) | payer BC, MEDICAID, SELFPAY | PROVIDERS: Family Provider Podiatrist Foot & Ankle Surgery; PCP Family Medicine; Visit Provider Podiatrist Foot & Ankle Surgery | DX: S92.255D Nondisplaced fracture of navicular [scaphoid] of left foot, subsequent encounter for fracture with routine healing; X58.XXXD Exposure to other specified factors, subsequent encounter; Z98.890 Other specified postprocedural states | CPT/HCPCS: 73630 ==

== ENCOUNTER → 2024-11-10 14:25 | Outpatient (BNVA) | payer BC, MEDICAID, SELFPAY | PROVIDERS: Family Provider Podiatrist Foot & Ankle Surgery; PCP Family Medicine; Visit Provider Podiatrist Foot & Ankle Surgery | DX: M79.672 Pain in left foot (principal); Z98.890 Other specified postprocedural states | CPT/HCPCS: 73630 ==

== ENCOUNTER → 2024-12-28 09:29 | Outpatient (BNVA) | payer BC, MEDICAID, SELFPAY | PROVIDERS: PCP Family Medicine; Visit Provider Family Medicine | DX: E03.9 Hypothyroidism, unspecified (principal); R23.3 Spontaneous ecchymoses; E10.65 Type 1 diabetes mellitus with hyperglycemia | CPT/HCPCS: 80053; 83036; 84439; 84443; 84481; 85025; 85610 ==

== ENCOUNTER → 2024-12-30 15:16 | Outpatient (BNVA) | payer BC, MEDICAID, SELFPAY | PROVIDERS: PCP Family Medicine; Visit Provider Nurse Practitioner Women's Health | DX: N76.3 Subacute and chronic vulvitis (principal) | CPT/HCPCS: 88305; 88312; 88342 ==

== ENCOUNTER → 2025-01-25 09:41 | Outpatient (BNVA) | payer BC, MEDICAID, SELFPAY | PROVIDERS: PCP Family Medicine; Visit Provider Anesthesiology Pain Medicine | DX: S22.070A Wedge compression fracture of T9-T10 vertebra, initial encounter for closed fracture (principal); S22.080A Wedge compression fracture of T11-T12 vertebra, initial encounter for closed fracture; M51.34 Other intervertebral disc degeneration, thoracic region; M54.2 Cervicalgia; G89.29 Other chronic pain | CPT/HCPCS: 72040; 72072 ==

== ENCOUNTER 2025-02-22 09:33 | Outpatient (CLI) | payer BC, MEDICAID, SELFPAY ==
[2025-02-22 11:08] LABS: Basophils % 0.2 %; Eosinophils # 0.1 10^3/uL (0.0-0.8); Eosinophils % 1.1 %; Hematocrit 35.5 % (36-47); Lymphocytes # 1.5 10^3/uL (0.8-4.8); Lymphocytes % 27.1 %; Mean Corpuscular HGB Conc 32.7 g/dL (30-55); Mean Corpuscular Hemoglobin 30.8 pg (27-33); Mean Corpuscular Volume 94.2 fl (85-98); Mean Platelet Volume 10.3 fL (7.4-10.4); Monocytes # 0.4 10^3/uL (0.2-0.9); Monocytes % 6.5 %; Neutrophils # 3.62 10^3/uL (1.8-7.7); Neutrophils % 64.9 %; Nucleated Red Blood Cells % 0 %; Platelet Count 234 10^3/cmm (157-399); Red Blood Count 3.77 10^6/uL (3.85-5.65); Red Cell Distribution Width 12.3 % (12.1-15.1); White Blood Count 5.57 10^3/uL (3.29-11.43)
[2025-02-22 11:27] LABS: Alanine Aminotransferase 10 U/L (0-33); Albumin Level 3.8 g/dL (3.5-5.2); Alkaline Phosphatase 75 U/L (35-105); Anion Gap 13.2 (5-19); Aspartate Amino Transferase 11 U/L (0-32); Blood Urea Nitrogen 13 mg/dL (6-20); Carbon Dioxide 28 mmol/L (22-29); Chloride 102 mmol/L (98-107); Globulin 2.8 g/dL (1.3-4.6); Glomerular Filtration Rate 81.6 mL/min (90-130); Glucose 140 mg/dL (65-115); Osmolality Calculated 290 mOsm/kg (285-295); Potassium 4.2 mmol/L (3.5-5.1); Sodium 139 mmol/L (136-145); Total Bilirubin 0.2 mg/dL (0.15-1.2); Total Protein 6.6 g/dL (6.6-8.7)
[2025-02-22 11:35] LABS: Chol HDL Ratio 2.19 mg/dL (0.0-4.40); Cholesterol 160 mg/dL (0-200); HDL Cholesterol 73 mg/dL (60-100); LDL Cholesterol Calculated 66 mg/dL (50-129); Triglycerides 103 mg/dL (0-150)
[2025-02-22 11:46] LABS: Hepatitis B Surface Antigen Non-Reactive (Nonreactive)
[2025-02-22 11:47] LABS: Hepatitis C Virus Antibody Non-Reactive (Nonreactive)
[2025-02-22 11:53] LABS: HIV 1 & 2 Antibody Non-Reactive (Non-Reactiv); HIV 1 & 2 Antigen Non-Reactive (Non-Reactiv)
[2025-02-22 11:55] LABS: Hepatitis B Core AB, Total Non-Reactive (Nonreactive); Hepatitis B Surface AB 437.4 (11.5-1000)
== END 2025-02-22 09:34 | disposition home or self-care (01) ==
LOC: LAB 09:35
PROVIDERS: PCP Family Medicine; Visit Provider Nurse Practitioner Family
DX: L40.0 Psoriasis vulgaris (principal)
CPT/HCPCS: 36415; 80048; 80061; 80076; 85025; 86480; 86704; 86706; 86803; 87340; 87806

== ENCOUNTER 2025-03-02 09:04 | Outpatient (CLI) | payer BC, MEDICAID, SELFPAY ==
--- NOTE | 2025-03-02 09:00 | MR_ITS ---
WS: [id number] MRI THORACIC SPINE WITHOUT CONTRAST TECHNIQUE: Sagittal T1, T2 and STIR imaging. Axial T2 imaging. Noncontrast imaging obtained. CLINICAL INFORMATION: M54.14 - Radiculopathy, thoracic region COMPARISON: None. FINDINGS: Moderate thoracic kyphosis. Chronic anterior wedging in the mid and lower thoracic spine. Kyphosis worse at T10-11 with anterior wedging which is chronic. Disc bulging worse at T10-11 with slight effacement of the ventral thecal sac. Tiny RIGHT paracentral herniation T7-T8. Slight contact of the thoracic cord. No significant central canal stenosis. Mild facet arthropathy lower thoracic spine. Cord signal is normal. Adrenal glands are normal. Normal caliber thoracic aorta. MR/MR thoracic spin wo con* [id number] IMPRESSION: 1. Moderate thoracic kyphosis. No acute compression fractures. 2. Chronic anterior wedging worse at T9-T11. Disc bulging at T10-11. 3. Tiny RIGHT paracentral herniation T7-T8 with slight effacement of the ventr al thecal sac.
--- NOTE | 2025-03-02 09:45 | MR_ITS ---
WS: [id number] MRI CERVICAL SPINE NONCONTRAST TECHNIQUE: Sagittal T1, T2 and STIR imaging. Axial T2, gradient, and fiesta imaging. CLINICAL INFORMATION: M54.12 - Radiculopathy, cervical region COMPARISON: None. FINDINGS: Some images degraded by motion. Normal cervical alignment. No high-grade central canal stenosis. Cord signal is normal. C2-C3: Normal. C3-C4: Mild facet arthropathy. Mild LEFT bony foraminal narrowing. C4-C5: Moderate LEFT facet arthropathy. Mild bilateral bony foraminal narrowing. C5-C6: Mild disc osteophyte complex with endplate ridging. Mild RIGHT foraminal narrowing. Moderate facet arthropathy. C6-C7: Tiny shallow central protrusion. Spinal canal and foramen are patent. C7-T1: Mild facet arthropathy with uncovertebral joint hypertrophy. Spinal canal and foramen are patent. Visualized brain stem structures: Normal. Prevertebral soft tissues: Normal. MR/MR cervical spin wo con* [id number] IMPRESSION: 1. Normal cervical alignment. Cord signal is normal. 2. Mild bony foraminal narrowing described above. This is worse at LEFT C3-C4, RIGHT C4-C5, and RIGHT C5-C6. 3. Mild to moderate facet arthropathy worse at LEFT C4-5, bilateral C5-C6. 4. Tiny shallow central protrusion C6-7.
== END 2025-03-02 09:05 | disposition home or self-care (01) ==
LOC: RAD 09:05
PROVIDERS: PCP Family Medicine; Visit Provider Anesthesiology Pain Medicine
DX: M54.12 Radiculopathy, cervical region (principal); M54.14 Radiculopathy, thoracic region; M47.892 Other spondylosis, cervical region; M48.02 Spinal stenosis, cervical region; M25.78 Osteophyte, vertebrae; M50.322 Other cervical disc degeneration at C5-C6 level; M47.893 Other spondylosis, cervicothoracic region; M89.38 Hypertrophy of bone, other site; M40.294 Other kyphosis, thoracic region; M48.54XD Collapsed vertebra, not elsewhere classified, thoracic region, subsequent encounter for fracture with routine healing; M51.34 Other intervertebral disc degeneration, thoracic region; M47.894 Other spondylosis, thoracic region
CPT/HCPCS: 72141; 72146

== ENCOUNTER 2025-04-01 08:31 | Outpatient (CLI) | payer BC, MEDICAID, SELFPAY ==
--- NOTE | 2025-04-01 08:30 | USCV_ITS ---
Sally Drake Age: 34 Gender: F : 1990 Exam Date: 04/01/2025 08:43 Ordering Phys: Parker Loza MD Technologist: [employer] Exam Location: [facility] [place] Indication: LEFT LEG SWELLING HISTORY: LEFT lower extremity swelling. PROCEDURES: Venous duplex imaging was performed in only the left lower extremity. The following venous structures were evaluated: common femoral vein, profunda vein, proximal portion of the greater saphenous vein, superficial femoral vein, and the popliteal vein. In addition, the posterior tibial and peroneal trunk were evaluated. FINDINGS: Examination was technically limited due to body habitus. Normal 2-D Doppler and augmentation and compressibility throughout the lower extremity venous structures. Additional imaging through the proximal calf veins also reveals no thrombus. Limited evaluation of the greater saphenous vein is patent with no thrombus. CONCLUSIONS No evidence of left lower extremity DVT. Jason Lemus MD (Electronically Signed) Final Date: 01 Apr 2025 10:38 S
== END 2025-04-01 08:32 | disposition home or self-care (01) ==
LOC: RAD 08:32
PROVIDERS: PCP Family Medicine; Visit Provider Internal Medicine Rheumatology
DX: M79.669 Pain in unspecified lower leg (principal)
CPT/HCPCS: 93971

== ENCOUNTER → 2025-04-02 12:51 | Outpatient (BNVA) | payer BC, MEDICAID, SELFPAY | PROVIDERS: PCP Family Medicine; Visit Provider Emergency Medicine | DX: M25.572 Pain in left ankle and joints of left foot (principal); M79.672 Pain in left foot; Z98.890 Other specified postprocedural states | CPT/HCPCS: 73610; 73630 ==

== ENCOUNTER → 2025-05-12 09:06 | Outpatient (BNVA) | payer BC, MEDICAID, SELFPAY | PROVIDERS: PCP Internal Medicine Rheumatology; Referring Provider Internal Medicine; Visit Provider Internal Medicine Rheumatology | DX: E03.9 Hypothyroidism, unspecified (principal); Z79.899 Other long term (current) drug therapy; E06.9 Thyroiditis, unspecified; E10.40 Type 1 diabetes mellitus with diabetic neuropathy, unspecified; E10.65 Type 1 diabetes mellitus with hyperglycemia | CPT/HCPCS: 80053; 80061; 80076; 83036; 84439; 84443; 85025; 86140 ==

== ENCOUNTER 2025-06-10 12:26 | Outpatient (CLI) | payer BC, MEDICAID, SELFPAY ==
--- NOTE | 2025-06-10 12:31 | XRR_ITS ---
PROCEDURE INFORMATION: Exam: XR Lumbosacral Spine Exam date and time: 06/10/2025 12:43 PM Age: 34 years old Clinical indication: Low back pain; Prior surgery; Surgery date: 6+ months; Surgery type: Insulin pump; Additional info: M54.16 - radiculopathy, lumbar region TECHNIQUE: Imaging protocol: Radiologic exam of the lumbosacral spine. Views: 2 or 3 views. COMPARISON: CR XR lumbar spine 2-3V* [id number] 02/17/2023 4:38 PM FINDINGS: Bones/joints: Preserved lumbar vertebral body heights and alignment. Mild multilevel spondylosis. Scattered facet arthropathy. There are no areas of high-grade bony neural foraminal narrowing. No acute fracture or traumatic malalignment. Soft tissues: Unremarkable. XR/XR lumbar spine 2-3V* [id number] IMPRESSION: As above.
== END 2025-06-10 12:27 | disposition home or self-care (01) ==
LOC: RAD 12:28
PROVIDERS: PCP Family Medicine; Visit Provider Family Medicine
DX: M47.26 Other spondylosis with radiculopathy, lumbar region (principal); M47.896 Other spondylosis, lumbar region
CPT/HCPCS: 72100

== ENCOUNTER 2025-06-28 12:50 | Outpatient (CLI) | payer BC, MEDICAID, SELFPAY ==
--- NOTE | 2025-06-28 13:00 | MR_ITS ---
WS: [id number] MRI LUMBAR SPINE NONCONTRAST HISTORY: M54.16 - Radiculopathy, lumbar region, LEFT radiculopathy. COMPARISON: None available. TECHNIQUE: Sagittal and axial multisequence imaging is submitted. Mild anterior wedging of T11. T10-T11: Mild narrowing of the disc space with a slight focal kyphosis related to the fracture of T11. There is mild disc encroachment upon the ventral thoracic cord. Very slight increase in the lumbar lordosis. Disc spaces and vertebral body heights are well-preserved. Conus terminates normally at L1-2 disc level. L1-L2: Normal. L2-L3: Moderate facet joint arthropathy and ligamentum flavum hypertrophy. No stenosis. L3-L4: Mild disc bulging with moderate ligamentum flavum and facet arthritis. No stenosis. L4-L5: Mild annular disc bulging with a central disc protrusion. Disc protrusion is asymmetric and greatest to the LEFT. Disc contact on both the traversing L5 nerve roots. Greater contact on the traversing LEFT L5 nerve root. Mild bilateral subarticular recess and foraminal stenosis. Moderate facet and ligamentum flavum hypertrophy. L5-S1: No stenosis. Mild facet joint arthropathy. Paravertebral soft tissues are negative. MR/MR lumbar spine wo con* [id number] IMPRESSION: 1. Focal central disc protrusion at L4-5 with contact on the traversing L5 ner ve roots. Greater contact with displacement on the LEFT L5 nerve root. Mild aysha ateral subarticular recess and foraminal stenosis. 2. Facet joint arthropathy and ligamentum flavum hypertrophy most significant from L2-3 through L4-5. 3. No high-grade central stenosis. 4. Mild anterior wedging of T11. Focal kyphosis at the T10-11 disc level with mild disc contact on the ventral thoracic cord. This was previously described o n MRI thoracic spine of 03/02/2025.
== END 2025-06-28 12:51 | disposition home or self-care (01) ==
LOC: RAD 12:53
PROVIDERS: PCP Family Medicine; Visit Provider Anesthesiology Pain Medicine
DX: M54.16 Radiculopathy, lumbar region (principal); M51.26 Other intervertebral disc displacement, lumbar region; M48.061 Spinal stenosis, lumbar region without neurogenic claudication; M99.63 Osseous and subluxation stenosis of intervertebral foramina of lumbar region; M46.96 Unspecified inflammatory spondylopathy, lumbar region; M47.816 Spondylosis without myelopathy or radiculopathy, lumbar region; M24.28 Disorder of ligament, vertebrae; M40.204 Unspecified kyphosis, thoracic region; S22.080S Wedge compression fracture of T11-T12 vertebra, sequela; X58.XXXS Exposure to other specified factors, sequela; M47.897 Other spondylosis, lumbosacral region
CPT/HCPCS: 72148

== ENCOUNTER → 2025-07-26 14:13 | Outpatient (BNVA) | payer BC, MEDICAID, SELFPAY | PROVIDERS: PCP Family Medicine; Visit Provider Internal Medicine Rheumatology | DX: Z79.899 Other long term (current) drug therapy (principal) | CPT/HCPCS: 80076; 82565; 85025; 85651; 86140 ==

== ENCOUNTER 2025-08-27 11:19 | Emergency (ER) | payer BC, MEDICAID, SELFPAY ==
[2025-08-27 11:24] VITALS: BP 137/81; PULSE 115; RESP 16; TEMP 36.8; O2SAT 100
--- OUTSIDE RECORDS SUMMARY | 2025-08-27 11:24 | XMS_ITS | Encounter Summary ---
Author Organization [facility] Address [address] [place] [address] Care Team Providers Care Facing Cutting Machine Operator Name Role Phone Casey Mccall MD Primary Care Provider Encounter Details Date Type Department Care Team (Late st Contact Info) Description 10/09/2012 Ancillary Orders [facility] [place] [address] [place] [id number] Apoorva Pérez MD [address] [facility] [address] [place] [id number] Diabetes mellitus, antepartum Social History Tobacco Use Types Packs/Day Years Used Date Smoking Tobacco: Never Smokeless Tobacco: Never Alcohol Use Standard Drinks/Week Comments No 0 (1 standard drink = 0.6 oz pur e alcohol) Comments Yes Sex and Gender Information Value Date Recorded Sex Assigned at Not on file Legal Sex Female 2:44 AM 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 Gender Identity Not on file Sexual Orientation Not on file Occupation Industry Job Start Date Job End Date Not on file Not on file Not on file Not on file Not on file Not on file Not on file Not on file documented as of this encounter Plan of Treatment Not on file documented as of this encounter Results * US OB FOLLOW UP PER FETUS (11/10/2012 2:19 PM 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) Anatomical Region Laterality Modality Pelvis Ultrasound us Apoorva Pérez MD US ORDERABLES Final R esult documented in this encounter Visit Diagnoses Diagnosis Diabetes mellitus, antepartum(648.03) Diabetes mellitus, antepartum documented in this encounter Additional Health Concerns Infection Onset Date Last Indicated Resolved Time MRSA Comment:Wound 10/08/12 Wound 06/20/15 Nares 09/03/16 10/12/2012 10/12/2012 documented as of this encounter Care Teams Facing Cutting Machine Operator Relationship Specialty Start Date End Date Casey Mccall MD [address] [place] [address] PCP - General Family Practice 05/02/17 documented as of this encounter
--- OUTSIDE RECORDS SUMMARY | 2025-08-27 11:24 | XMS_ITS | Clinical Summary ---
Author Organization [facility] Address [address] [place] [phone] Care Team Providers Care Career Manager Name Role Phone Unavailable Primary Care Provider Unavailabl e Allergies Active Allergy Reactions Criticality Noted Date Comments Adhesive Tape Rash Low 10/16/2009 Clarithromycin Hallucination Low 10/16/2009 Gadolinium-Containing Contrast Media Rash,Itching Low 05/22/2015 Penicillins Shortness of Breath/Wheezing,Rash High 10/16/2009 Medications furosemide (LASIX) 20 mg tablet Take 1 Tablet (20 mg) by mouth 1 time daily as needed for Other (See Comment) (swelling). 30 Tablet 3 11/10/20 19 Active Additional Information Patient taking differently: (No dose reported), Oral DAILY PRN,Take 1-2 tablets as directed, Reported on 03/11/2025 alcohol Pads, Medicated FOR CLEANSING BEFORE LANCET USE OR INSULIN INJECTIONS 100 Each PRN 12/10/19 20 Active Insulin Syringe-Needle U-100 0.3 mL 31 gauge x 5/16 Syringe USE WITH INSULIN 3-4 TIMES DAILY 100 Each 12/10/19 20 Active Insulin [place], Disposable, 31 gauge x 3/16 NeedleIndication s:Uncontrolled type 1 diabetes mellitus with hypoglycemia without coma FOR USE WITH INSULIN 3-4 TIMES PER DAY. 100 Each 09/30/20 18 Active lancetsIndicatio ns:Uncontrolled type 1 diabetes mellitus with hypoglycemia without coma For use with glucometer pre and post meals and hs.. 200 Each 09/30/20 18 Active Insulin [place], Disposable, (BD Ultra-Fine Short Pen Needle) 31 gauge x 5/16 Needle USE WITH INSULIN 3 TO 4 TIMES PER DAY 100 Each 5 02/16/20 Active Insulin Syringe-Needle U-100 0.5 mL 31 gauge x 5/16 SyringeIndicatio ns:DM (diabetes mellitus), type 1, uncontrolled For use with insulin 3-4 times a day.. 100 Syringe 11 08/29/20 Active zolpidem (AMBIEN) 10 mg tablet TAKE ONE TABLET BY MOUTH DAILY AT BEDTIME FOR 30 DAYS 09/17/20 Active hydroxychloroqui ne (PLAQUENIL) 200 mg tablet Take 200 mg by mouth 2 times daily. 09/23/20 Active DULoxetine (CYMBALTA) 20 mg Capsule, Delayed Release(E.C.) TAKE ONE CAPSULE BY MOUTH TWICE A DAY 09/09/20 Active levothyroxine 125 mcg tablet Take 125 mcg by mouth daily. 09/17/20 Active metoprolol succinate (TOPROL XL) 25 mg Extended Release 24 hour tablet Take 25 mg by mouth daily. 09/09/20 Active potassium chloride (KLOR-CON) 10 mEq Extended Release tablet Take 10 mEq by mouth daily. 09/09/20 Active Victoza 3-Gabriel 0.6 mg/0.1 mL (18 mg/3 mL) inject 0.6mg SUBCUTANEOUSLY ONCE daily FOR SEVEN DAYS, THEN increase TO 1.2mg SUBCUTANEOUSLY DAILY, THEN 1.8mg SUBCUTANEOUSLY DAILY 10/02/20 Active Omnipod 5 G6 Pods, Gen 5, Cartridge CHANGE POD EVERY 3 DAYS 09/26/20 Active NovoLOG U-100 Insulin aspart 100 unit/mL vial VIA PUMP WITH A MAX DOSE OF 60 UNITS/DAY. 09/01/20 Active lidocaine (LIDODERM) 5 % Adhesive Patch, MedicatedIndicat ions:Chronic low back pain without sciatica, unspecified back pain laterality Apply 3 Patches to affected area every 24 hours. For lower back pain. 90 Patch 5 10/16/20 Active Dexcom G6 Sensor Device CHANGE EVERY 10 DAYS 12/22/19 Active Dexcom G6 Transmitter Device as directed 11/14/20 Active Omnipod 5 G6 Intro Kit, Gen 5, Cartridge as directed 10/02/20 Active cyclobenzaprine (FLEXERIL) 10 mg tabletIndication s:Scoliosis, unspecified scoliosis type, unspecified spinal region take 1 tablet by mouth three times daily as needed for spasm 90 Tablet 01/07/20 24 Active levETIRAcetam (KEPPRA) 750 mg TabletIndication s:Nonintractable generalized idiopathic epilepsy without status epilepticus (CMS/HCC) take two tablets by mouth twice a day 120 Tablet 11 03/08/20 24 Active gabapentin (Neurontin) 300 mg capsule Take 1 Capsule (300 mg) by mouth 2 times daily. 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 Lumbosacral spondylosis without myelopathy 01/05 DDD (degenerative disc disease), lumbosacral 03/2024 Discogenic low back pain 01/05/2024 Lumbar facet joint pain 01/05/2024 History of seizures 02/15/2020 Mild major depression 11/10/2019 Mixed hyperlipidemia 11/10/2019 Essential hypertension 11/10/2019 Diabetic polyneuropathy asso ciated with type 1 diabetes mellitus 11/10/2019 Bilateral lower extremity edema 11/10/2019 MRSA colonization 09/03/2016 Dental impaction 08/28/2016 Constipation, chronic 07/13/2015 MRSA (methicillin resistant staph aureus) cultur e positive 06/20/2015 Anxiety 06/04/2015 Primary generalized epilepsy 04/20/2015 Marital relationship problem 02/24/2014 Back pain 10/07/2013 Scoliosis 10/07/2013 Hypothyroidism 10/06/2013 LSIL (low grade squamous int raepithelial lesion) on Pap smear 09/21/2012 Overview (03/29/2021): Will need colpo PP GBS carrier 08/18/2012 Overview (03/29/2021): Positive vaginal culture 08/2012; prophylaxis in labor, susceptible to both clindamycin and erythromycin Rh negative status during 08/17/2012 DM (diabetes mellitus), type 1, uncontrolled Depression 10/16/2009 Tachycardia Resolved Problems Problem Noted Date Diagnosed Date Resolved Date Constipation 06/02/2015 06/04/2015 DM (diabetes mellitus) in 08/18/2012 10/06/2013 Overview (03/28/2021): Repeat HGB A1C on 11/18/2012 Seizure disorder in , antepartum 08/18/2012 10/07/2013 Hypothyroid in , antepartum 08/18/2012 10/07/2013 Overview (03/28/2021): Repeat TSH 10/07/2012 Supervision of high-risk pre gnancy of young multigravida 08/18/2012 10/07/2013 Unspecified high-risk 10/16/2009 10/06/2013 Diabetes mellitus type I, uncontrolled 10/16/2009 10/06/2013 Hyperthyroidism 10/16/2009 10/06/2013 Encounters Date Type Department Care Team Description 08/23/2025 External Device Data STL ABSTRACTION Provider, Abstract 08/16/2025 External Device Data [facility] ABSTRACTION Provider, Abstract 08/02/2025 External Device Data [facility] ABSTRACTION Provider, Abstract 07/19/2025 External Device Data [facility] ABSTRACTION Provider, Abstract 07/19/2025 External Device Data [facility] ABSTRACTION Provider, Abstract 07/12/2025 External Device Data STL ABSTRACTION Provider, Abstract 06/15/2025 External Device Data ST[facility] ABSTRACTION Provider, Abstract 06/14/2025 External Device Data STL ABSTRACTION Provider, Abstract from Last 3 Months Immunizations Immunization Administration Dates Next Due Hepatitis B Vaccine 09/16/2000,08/18/2000 Influenza Seasonal Unspecified Formulation IM Influenza Vaccine Quad Split 3+ Yrs Im 8 Family History Medical History Relation Name Comments Healthy Brother 1 Healthy Brother 2 Healthy Brother 3 Diabetes Father Healthy Maternal Grandfather Diabetes Maternal Grandmother Diabetes Mother Hypertension Mother Cancer Other 1 Paternal uncle Cancer Other 2 Maternal aunt breast cancer/ breast cancer Healthy Sister 1 Healthy Sister 2 Healthy Sister 3 Healthy Sister 4 Healthy Sister 5 Seizures Neg Hx Relation Name Status Comments Brother 1 Alive Brother 2 Alive Brother 3 Alive Father Alive Maternal Grandfather Alive Maternal Grandmother Alive Mother Alive Other 1 Paternal uncle Other 2 Maternal aunt Alive Paternal Grandfather Paternal Grandmother Sister 1 Alive Sister 2 Alive Sister 3 Alive Sister 4 Alive Sister 5 Alive Social History Tobacco Use Types Packs/Day Years Used Date Smoking Tobacco: Never Smokeless Tobacco: Never Tobacco Cessation:Counseling Given: Not Answered Alcohol Use Standard Drinks/Week Comments No 0 (1 standard drink = 0.6 oz pur e alcohol) Feeling Safe Answer Date Recorded Are you in a relationship wi th someone who hurts you emotionally and/or physically? No 08/25/2024 Comments No Sex and Gender Information Value Date Recorded Sex Assigned at Female 06/04/2024 3:18 PM CDT Legal Sex Female 12:20 PM PHP WEBSITE DEVELOPER Gender Identity Female 10/07/2024 3:03 PM PHP WEBSITE DEVELOPER Sexual Orientation Not on file Last Filed Vital Signs Vital Sign Reading Time Taken Comments Blood Pressure 126/80 03/11/2025 8:25 AM CDT Pulse 90 03/11/2025 8:25 AM CDT Temperature 36.1 C (97 F) 08/25/2024 9:19 AM CDT Respiratory Rate 16 03/11/2025 8:25 AM CDT Oxygen Saturation 96% 03/11/2025 8:25 AM CDT Inhaled Oxygen Concentration - - Weight 106.8 kg (235 lb 6.4 oz) 03/11/2025 8:25 AM CDT Height 167.6 cm (5' 6 ) 12/21/2024 2:59 PM PHP WEBSITE DEVELOPER Body Mass Index 37.99 12/21/2024 2:59 PM PHP WEBSITE DEVELOPER Plan of Treatment Upcoming Encounters Date Type Department Care Team (Late st Contact Info) Description 03/10/2026 10:45 AM CDT Office Visit [facility] [place] [address] [address] Zoltan Contreras MD [address] [address] Health Maintenance Due Date Last Done Comments HEPATITIS B VACCINES (3 of 3 - 3-dose series) 12/08/2000 09/16/2000, 09/16/2000, 08/18/2000, Additional history exists DTAP/TDAP/TD VACCINES (1 - Tdap) 2008 HPV VACCINES (1 - Risk 3-dos e SCDM series) 2016 DIABETES MICROALBUMIN ANNUAL SCREEN 11/10/2020 11/10/2019, 09/30/2018, 01/19/2016, Additional history exists LDL CHOLESTEROL ANNUAL 11/10/2020 9, 09/30/2018, 01/22/2017, Additional history exists HPV/Cotest (21-29) 02/26/2021 02/27/2016 HPV/Cotest (30-65) 02/26/2021 02/27/2016 CERVICAL CANCER SCREENING 06/15/2021 PAP SMEAR 06/15/2021 06/15/2018, 01/30, 02/27/2016 DIABETES HBA1C Q 6 MONTHS 05/09/20242022, 11/10/2019, 11/10/2019, Additional history exists DIABETES ANNUAL FOOT EXAM 10/16/2024 10/16/2023 DIABETES ANNUAL RETINAL EXAM 11/12/2024, 01/25/2020, 01/25/2020, Additional history exists INFLUENZA VACCINE (#1) 2025 09/30/2018, 2012 Procedures Procedure Name Priority Date/Time Associated Diagnosis Comments DIABETES EYE EXAM Routine 11/12/2023 2:07 PM PHP WEBSITE DEVELOPER HEMOGLOBIN A1C Routine 11/08/2023 11:51 AM PHP WEBSITE DEVELOPER MICROALBUMIN/CREATIN INE RATIO, RANDOM UR Routine 11/10/2019 1:43 PM PHP WEBSITE DEVELOPER LIPID PANEL Routine 11/10/2019 1:43 PM PHP WEBSITE DEVELOPER CERV/VAG CYTOPATH, THIN PREP SWEET POTATO DISINTEGRATOR 06/15/2018 12:00 AM CDT CERV/VAG CYTOPATH, THIN PREP IMAGR RFLX HPV Routine 02/27/2016 9:54 AM CDT from Last 3 Months or Most Recently Relevant to Health Maintenance Results * DIABETES EYE EXAM (11/12/2023 2:07 PM PHP WEBSITE DEVELOPER) us Abstract Provider HEALTH MAINTENANCE Final Resul t * HEMOGLOBIN A1C (11/08/2023 11:51 AM PHP WEBSITE DEVELOPER) Blood us Abstract Provider CHEMISTRY ORDERABLES Final Res ult [facility] CLIA# [id number] [address] [address] * MICROALBUMIN/CREATININE RATIO, RANDOM UR (11/10/2019 1:43 PM PHP WEBSITE DEVELOPER) MICROALBUMIN, URINE <1.2 No Reference Range mg/dL 11/10/2019 9:24 PM [facility] CREATININE, URINE 42.4 29.0 - 226.0 mg/dL 11/10/2019 9:24 PM [facility] Comment:Reference Range vari es with fluid intake and diet. Urine URINE SPECIMEN OBTAINED BY CLEAN CATCH PROCEDURE / Unknown Collection / Unknown 11/10/2019 1:43 PM PHP WEBSITE DEVELOPER 11/10/2019 7:45 PM PHP WEBSITE DEVELOPER [facility] - 11/10/2019 9:24 PM PHP WEBSITE DEVELOPER Condition Microalbumin/Creat ratio Normal Males <17 Normal Females <25 Microalbuminuria Males 17-299 Microalbuminuria Females 25-299 Overt proteinuria >=300 Unable to calculate urine microalbumin/creatinine ratio because urine microalbumin result is outside of reportable range. us Indy Magdaleno NP URINE ORDERABLES Final Resul t [facility] IA# [id number] [address] [place] [address] * (ABNORMAL) LIPID PANEL (11/10/2019 1:43 PM PHP WEBSITE DEVELOPER) CHOLESTEROL 207(H) <200 mg/dL 11/10/2019 8:51 PM [facility] TRIGLYCERIDE 209(H) <150 mg/dL 11/10/2019 8:51 PM [facility] HDL 63(H) 40 - 59 mg/dL 11/10/2019 8:51 PM [facility] LDL CALCULATED 102(H) <100 mg/dL 11/10/2019 8:51 PM PHP WEBSITE DEVELOPER [facility] NON-HDL CHOLESTEROL 144(H) <130 mg/dL 11/10/2019 8:51 PM PHP WEBSITE DEVELOPER [facility] Blood Venipuncture / Unknown 11/10/2019 1:43 PM PHP WEBSITE DEVELOPER 11/10/2019 7:46 PM PHP WEBSITE DEVELOPER Narrative [facility] - 11/10/2019 8:51 PM PHP WEBSITE DEVELOPER TOTAL CHOLESTEROL mg/dL Desirable<200 Borderline [id number] High>=240 TRIGLYCERIDES mg/dL Normal<150 Borderline ukry639-256 Msrb593-769 Very high>=500 HDL CHOLESTEROL mg/dL Low<40 Drmroa51-93 Desirable>=60 NON HDL CHOLESTEROL mg/dL Optimal<130 Near [id number] Borderline Botu502-137 Very High>=190 Calculated LDL mg/dL Optimal<100 Near [id number] Borderline Woqs138-527 Ggbn099-112 Very High>=190 ATPIII Guidelines Reference Ranges for Lipid Panels (NCEP/AMA) Indy Magdaleno NP CHEMISTRY ORDERABLES Final R esult [facility] CLIA# [id number] [address] [place] [address] * CERV/VAG CYTOPATH, THIN PREP SWEET POTATO DISINTEGRATOR (06/15/2018 12:00 AM CDT) Sgf Scanning PATHOLOGY/CYTOLOGY ORDERABLES Fi nal Result * CERV/VAG CYTOPATH, THIN PREP IMAGR RFLX HPV (02/27/2016 9:54 AM CDT) CASE REPORT Gynecologic Cytology Report Case: [id number] Authorizing Provider: Gaviota Gutierrez FNP Collected: 02/27/2016 0954 Ordering Location: [facility] Family Received: 02/28/[address] [place] [address] First Screen: Chika Caceres Specimen: LB PAP IM W/RFLX HPV PROT, Endocervical 03/05/2016 1:52 PM CDT [facility] Specimen Adequacy Satisfactory for evaluation, endocervical/benítez sformation zone component absent 03/05/2016 1:52 PM CDT [facility] Solar Manufacturer'S Representative General Categorization Negative For Intraepithelial Lesion Or Malignancy 03/05/2016 1:52 PM T [facility] Interpretation Negative For Intraepithelial Lesion Or Malignancy 03/05/2016 1:52 PM CDT [facility] CIVIL RIGHTS REPRESENTATIVE Clinical Information Oral Contraceptives 03/05/2016 1:52 PM T [facility] Solar Manufacturer'S Representative Educational Note 03/05/2016 1:52 PM CDT [facility] Endocervical (Endocervical) 02/27/2016 9:54 AM CDT 02/28/2016 2:20 PM CDT Gaviota Gutierrez SENSITIZED PAPER TESTER PATHOLOGY/CYTOLOGY ORDERABLES Final Result Performing Organization Address City/State/[facility] Co de Phone Number [facility] CLIA# [id number] [address] [place] [address] [facility] CLIA # [id number] [address] [place] [address] from Last 3 Months or Most Recently Relevant to Health Maintenance Insurance #[address] [place] [id number] [facility] MED[employer]
--- OUTSIDE RECORDS SUMMARY | 2025-08-27 11:24 | XMS_ITS | Encounter Summary ---
Author Organization [facility] Address [address] [place] [address] Care Team Providers Care Coat Cutter Name Role Phone Casey Mccall MD Primary Care Provider Encounter Details Date Type Department Care Team (Late st Contact Info) Description 11/10/[address] [facility] [place] [address] [place] [address] Apoorva Pérez MD [address] [place] [facility] [address] [place] [address] Diabetes mellitus, antepartum Social History Tobacco Use Types Packs/Day Years Used Date Smoking Tobacco: Never Smokeless Tobacco: Never Alcohol Use Standard Drinks/Week Comments No 0 (1 standard drink = 0.6 oz pur e alcohol) Comments Yes Sex and Gender Information Value Date Recorded Sex Assigned at Not on file Legal Sex Female 2:44 AM FAST FOOD SUPERVISOR Gender Identity Not on file Sexual Orientation Not on file Occupation Industry Job Start Date Job End Date Not on file Not on file Not on file Not on file Not on file Not on file Not on file Not on file documented as of this encounter Plan of Treatment Not on file documented as of this encounter Results * ECHO 2D + COLOR FLOW VELOCITY (11/10/2012 2:19 PM FAST FOOD SUPERVISOR) Anatomical Region Laterality Modality Chest Ultrasound us Apoorva Pérez MD ORDERABLES Final R esult documented in this encounter Visit Diagnoses Diagnosis Diabetes mellitus, antepartum(648.03) Diabetes mellitus, antepartum documented in this encounter Additional Health Concerns Infection Onset Date Last Indicated Resolved Time MRSA Comment:Wound 10/08/12 Wound 06/20/15 Nares 09/03/16 10/12/2012 10/12/2012 documented as of this encounter Care Teams Coat Cutter Relationship Specialty Start Date End Date Casey Mccall MD [address] [place] [address] PCP - General Family Practice 05/02/17 documented as of this encounter
--- OUTSIDE RECORDS SUMMARY | 2025-08-27 11:24 | XMS_ITS | Encounter Summary ---
Author Organization [facility] Address [address] [place] [address] Care Team Providers Care Fireperson Name Role Phone Casey Mccall MD Primary Care Provider Encounter Details Date Type Department Care Team (Late st Contact Info) Description 11/06/2012 Ancillary Orders [facility] [place] [address] [place] [phone] Apoorva Pérez MD [address] [facility] [address] [place] [address] Diabetes mellitus, antepartum Social History Tobacco Use Types Packs/Day Years Used Date Smoking Tobacco: Never Smokeless Tobacco: Never Alcohol Use Standard Drinks/Week Comments No 0 (1 standard drink = 0.6 oz pur e alcohol) Comments Yes Sex and Gender Information Value Date Recorded Sex Assigned at Not on file Legal Sex Female 2:44 AM CERTIFIED PROFESSIONAL CODER Gender Identity Not on file Sexual Orientation Not on file Occupation Industry Job Start Date Job End Date Not on file Not on file Not on file Not on file Not on file Not on file Not on file Not on file documented as of this encounter Plan of Treatment Not on file documented as of this encounter Visit Diagnoses Diagnosis Diabetes mellitus, antepartum(648.03) Diabetes mellitus, antepartum documented in this encounter Additional Health Concerns Infection Onset Date Last Indicated Resolved Time MRSA Comment:Wound 10/08/12 Wound 06/20/15 Nares 09/03/16 10/12/2012 10/12/2012 documented as of this encounter Care Teams Fireperson Relationship Specialty Start Date End Date Casey Mccall MD [address] [place] [address] PCP - General Family Practice 05/02/17 documented as of this encounter
--- OUTSIDE RECORDS SUMMARY | 2025-08-27 11:24 | XMS_ITS | Encounter Summary ---
Author Organization [facility] Address [address] [place] [address] Care Team Providers Care Nuclear Fuel Processing Technician Name Role Phone Casey Mccall MD Primary Care Provider [phone] Encounter Details Date Type Department Care Team (Late st Contact Info) Description 09/11/2012 Ancillary Orders [address] [address] Charmaine Cary, [facility] [address] [place] [address] Diabetes mellitus type 1, uncontrolled; Epilepsy (CMS/HCC); High-risk Social History Tobacco Use Types Packs/Day Years Used Date Smoking Tobacco: Never Smokeless Tobacco: Never Alcohol Use Standard Drinks/Week Comments No 0 (1 standard drink = 0.6 oz pur e alcohol) Comments Yes Sex and Gender Information Value Date Recorded Sex Assigned at Not on file Legal Sex Female 2:44 AM SENIOR PIPING DESIGNER Gender Identity Not on file Sexual Orientation Not on file Occupation Industry Job Start Date Job End Date Not on file Not on file Not on file Not on file documented as of this encounter Plan of Treatment Not on file documented as of this encounter Visit Diagnoses Diagnosis Diabetes mellitus type 1, uncontrolled Type I (juvenile type) diabetes mellitus without mention of complication, uncontrolled Epilepsy (CMS/HCC) Unspecified epilepsy without mention of intractable epilepsy High-risk Unspecified high-risk documented in this encounter Additional Health Concerns Infection Onset Date Last Indicated Resolved Time MRSA Comment:Wound 10/08/12 Wound 06/20/15 Nares 09/03/16 10/12/2012 10/12/2012 documented as of this encounter Care Teams Nuclear Fuel Processing Technician Relationship Specialty Start Date End Date Casey Mccall MD [address] [place] [address] PCP - General Family Practice 05/02/17 documented as of this encounter
--- OUTSIDE RECORDS SUMMARY | 2025-08-27 11:24 | XMS_ITS | Encounter Summary ---
Author Organization [facility] Address [address] [place] [address] Care Team Providers Care Retail Assistant Store Manager Name Role Phone Casey Mccall MD Primary Care Provider Encounter Details Date Type Department Care Team (Late st Contact Info) Description 04/12/2008 Outpatient Historical [facility] [address] [place] [address] AMBULANCE, [facility] Social History Tobacco Use Types Packs/Day Years Used Date Smoking Tobacco: Never Assessed Comments Unknown Sex and Gender Information Value Date Recorded Sex Assigned at Not on file Legal Sex Female 2:44 AM INDUSTRIAL REHABILITATION CONSULTANT Gender Identity Not on file Sexual Orientation Not on file documented as of this encounter Plan of Treatment Not on file documented as of this encounter Visit Diagnoses Not on filedocumented in this encounter Additional Health Concerns Infection Onset Date Last Indicated Resolved Time MRSA Comment:Wound 10/08/12 Wound 06/20/15 Nares 09/03/16 10/12/2012 10/12/2012 documented as of this encounter Care Teams Retail Assistant Store Manager Relationship Specialty Start Date End Date Casey Mccall MD [address] [place] [address] PCP - General Family Practice 05/02/17 documented as of this encounter
--- OUTSIDE RECORDS SUMMARY | 2025-08-27 11:24 | XMS_ITS | Encounter Summary ---
Author Organization [facility] Address [address] [place] [address] Care Team Providers Care Digital Project Coordinator Name Role Phone Casey Mccall MD Primary Care Provider [phone] Reason for Referral * Outpatient Services (Routine) - Closed Specialty Diagnoses / Procedures Referred By Contac t Referred To Contact Diagnoses Diabetes mellitus type 1, uncontrolled Epilepsy (CMS/HCC) High-risk Procedures US OB 14+ WKS SINGLE GEST Charmaine Cary FNP [address] [place] [address] Phone: tel: fax: Referral ID Status Reason Start Date Expiration Date Visits Re quested Visits Authorized [id number] Closed 09/15/2012 09/15/2013 1 1 Encounter Details Date Type Department Care Team (Late st Contact Info) Description 09/15/[address] 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 measurements are slightly small for dates COMMENTS: The standard criteria put forth by the [place] (AIUM) are not met. Scheduled to return in 4 weeks for a detailed scan, echo at 24 weeks. Tech: Angelika Mcghee RDMS Narrative 09/15/2012 1:28 PM CDT OBSTETRICAL ULTRASOUND REPORT Requested by: Charmaine Cary NP Indication(s): Diabetes, seizure disorder CPT: 47979 - Complete OB Ultrasound DESCRIPTION Number: 1 Presentation: Transverse Heart Rate: 148 bpm Amniotic Fluid: Appears normal Placenta: fundal Grade: I Uterus/cervix: unremarkable Right Adnexa: unremarkable Left Adnexa: unremarkable Cul-de-sac: unremarkable BIOMETRY Measurement Reference BPD: 3.0 cm (3.2-3.8 cm) (Snijders) HC: 11.3 cm (11.3-13.5 cm) (Hadlock) AC: 9.0 cm (8.6-11.2 cm) (Hadlock) FL: 1.7 cm (1.5-2.4 cm) (Lisa) HL: 1.8 cm (1.6-2.4 cm) (Lisa) Composite GA: 15w2d Ultrasound EDC: 03/07/2013 LMP: 05/22/2012 EDC by LMP: 02/26/2013 Selected EDC: 02/26/2013 EGA: 16w4d ANATOMY TABLE Normal Abnormal Not Adequately Visualized Previously Documented Structure Comments Nuchal Skin x Cavum Septa Pellucida* x Choroid Plexus* x Lateral Ventricle* x Midline Falx* x Cerebellum* x Cisterna Magna* x Face* x Spine* x 4 Chamber Heart* x LVOT x RVOT x Abdominal Wall* x Cord Insertion* x Cord Vessels* x Stomach* x Kidneys* x Bladder* x Gender x 4 Extremities* x AIUM Criteria (*) x Procedure Note Claudio Segovia MD - 09/15/2012 OBSTETRICAL ULTRASOUND REPORT Requested by: Charmaine Cary NP Indication(s): Diabetes, seizure disorder CPT: 88331 - Complete OB Ultrasound DESCRIPTION Number: 1 Presentation: Transverse Heart Rate: 148 bpm Amniotic Fluid: Appears normal Placenta: fundal Grade: I Uterus/cervix: unremarkable Right Adnexa: unremarkable Left Adnexa: unremarkable Cul-de-sac: unremarkable BIOMETRY Measurement Reference BPD: 3.0 cm (3.2-3.8 cm) (Snijders) HC: 11.3 cm (11.3-13.5 cm) (Hadlock) AC: 9.0 cm (8.6-11.2 cm) (Hadlock) FL: 1.7 cm (1.5-2.4 cm) (Lisa) HL: 1.8 cm (1.6-2.4 cm) (Lisa) Composite GA: 15w2d Ultrasound EDC: 03/07/2013 LMP: 05/22/2012 EDC by LMP: 02/26/2013 Selected EDC: 02/26/2013 EGA: 16w4d ANATOMY TABLE Normal Abnormal Not Adequately Visualized Previously Documented Structure Comments Nuchal Skin x Cavum Septa Pellucida* x Choroid Plexus* x Lateral Ventricle* x Midline Falx* x Cerebellum* x Cisterna Magna* x Face* x Spine* x 4 Chamber Heart* x LVOT x RVOT x Abdominal Wall* x Cord Insertion* x Cord Vessels* x Stomach* x Kidneys* x Bladder* x Gender x 4 Extremities* x AIUM Criteria (*) x IMPRESSION: No evidence of abnormalities. measurements are slightly small for dates COMMENTS: The standard criteria put forth by the [place] [employer] (AIUM) are not met. Scheduled to return in 4 weeks for a detailed scan, echo at 24weeks. Tech: Angelika Mcghee [facility] us Charmaine Cary [facility] US ORDERABLES Final Result documented in this encounter Visit Diagnoses Diagnosis Diabetes mellitus type 1, uncontrolled Type I (juvenile type) diabetes mellitus without mention of complication, uncontrolled Epilepsy (CMS/HCC) Unspecified epilepsy without mention of intractable epilepsy High-risk Unspecified high-risk documented in this encounter Additional Health Concerns Infection Onset Date Last Indicated Resolved Time MRSA Comment:Wound 10/08/12 Wound 06/20/15 Nares 09/03/16 10/12/2012 10/12/2012 documented as of this encounter Care Teams Digital Project Coordinator Relationship Specialty Start Date End Date Casey Mccall MD [address] [place] [address] PCP - General Family Practice 05/02/17 documented as of this encounter
--- OUTSIDE RECORDS SUMMARY | 2025-08-27 11:24 | XMS_ITS | Clinical Summary ---
Author Organization [facility] [place] Address [address] [place] [address] Care Team Providers Care Soil Expert Name Role Phone Casey Mccall MD Primary Care Provider [phone] Allergies Active Allergy Reactions Criticality Noted Date Comments Adhesive Tape Rash Low 10/16/2009 Clarithromycin Hallucination Low 10/16/2009 Gadolinium-Containing Contrast Media Rash,Itching Low 05/22/2015 Penicillins Shortness of Breath/Wheezing,Rash High 10/16/2009 Medications glucagon HCl 1 mg Recon Soln Inject 1 mg by intramuscular injection PRN (low blood sugar). Active Insulin Syringe-Needle U-100 1/2 mL 31 x 5/16 SyringeIndicatio ns:DM (diabetes mellitus), type 1, uncontrolled For use with insulin 3-4 times a day.. 100 Syringe 11 08/29/20 15 Active Blood-Glucose Meter KitIndications:U ncontrolled type 1 diabetes mellitus with hypoglycemia without coma Use to measure blood glucose. 1 Kit 09/30/20 18 Active lancetsIndicatio ns:Uncontrolled type 1 diabetes mellitus with hypoglycemia without coma For use with glucometer pre and post meals and hs.. 200 Each 09/30/20 18 Active Insulin Cornish, Disposable, (BD ULTRA-FINE MINI PEN NEEDLE) 31 gauge x 3/16 NeedleIndication s:Uncontrolled type 1 diabetes mellitus with hypoglycemia without coma FOR USE WITH INSULIN 3-4 TIMES PER DAY. 100 Each 11 09/30/20 18 Active BD ULTRA-FINE SHORT PEN NEEDLE 31 gauge x 5/16 Needle USE WITH INSULIN 3 TO 4 TIMES PER DAY 100 Each 02/16/20 19 Active buPROPion HCl (WELLBUTRIN XL) 150 mg Extended Release 24 hour tablet Take 1 Tablet (150 mg) by mouth daily supervisor electronics testing. 30 Tablet 6 11/10/20 19 Active furosemide (LASIX) 20 mg tablet Take 1 Tablet (20 mg) by mouth 1 time daily as needed for Other (See Comment) (swelling). 30 Tablet 3 11/10/20 19 Active FLUoxetine (PROzac) 40 mg capsule Take 1 Capsule (40 mg) by mouth daily. 30 Capsule 3 12/10/19 20 Active Insulin Syringe-Needle U-100 (BD Insulin Syringe Ultra-Fine) 0.3 mL 31 gauge x 5/16 Syringe USE WITH INSULIN 3-4 TIMES DAILY 100 Each 11 12/10/19 Active alcohol (BD Single Use Swabs Regular) Pads, Medicated FOR CLEANSING BEFORE LANCET USE OR INSULIN INJECTIONS 100 Each 12/10/19 20 Active blood sugar diagnostic (Blood Glucose Test) Strip 1 Strip by See Admin Instructions route see administration instructions. Pre and post meals tid and hs to allow her to use sliding scale . 200 Strip 12/10/19 Active insulin lispro (HumaLOG U-100 Insulin) 100 unit/mL vial INJECT 7 UNITS UNDER SKIN BEFORE BREAKFAST AND 8 UNITS BEFORE LUNCH AND 10 UNITS BEFORE SUPPER AND SLIDING SCALE MAXIMUM OF 48 UNITS DAILY 10 mL 6 12/10/19 Active levothyroxine 150 mcg tablet 02/01/20 20 Active loratadine-pseud oephedrine (CLARITIN-D) 10-240 mg Extended Release 24 hour tablet Take 1 Tablet by mouth daily. 30 Tablet 02/15/20 Active insulin glargine (Lantus U-100 Insulin) 100 unit/mL vial Inject 10 Units by subcutaneous injection 2 times daily. Active gabapentin (Neurontin) 100 mg capsule Take 1 Capsule (100 mg) by mouth 2 times daily. 60 Capsule 5 06/14/20 20 Active traZODone (DESYREL) 50 mg tablet TAKE 1 TABLET (50 MG) BY MOUTH DAILY AT BEDTIME. 30 Tablet 07/13/20 20 Active lisinopriL (PRINIVIL) 10 mg tablet TAKE ONE TABLET BY MOUTH DAILY 30 Tablet 08/22/20 20 Active levETIRAcetam (KEPPRA) 750 mg TabletIndication s:Nonintractable generalized idiopathic epilepsy without status epilepticus (CMS/HCC) TAKE TWO TABLETS BY MOUTH TWICE A DAY 120 Tablet 5 10/17/20 20 Active Active Problems Problem Noted Date Diagnosed Date History of seizures 02/15/2020 Mild major depression 11/10/2019 Essential hypertension 11/10/2019 Mixed hyperlipidemia 11/10/2019 Diabetic polyneuropathy asso ciated with type 1 diabetes mellitus 11/10/2019 Bilateral lower extremity edema 11/10/2019 MRSA colonization 09/03/2016 Dental impaction 08/28/2016 Constipation, chronic 07/13/2015 MRSA (methicillin resistant staph aureus) cultur e positive 06/20/2015 Anxiety 06/04/2015 Primary generalized epilepsy 04/20/2015 Marital relationship problem 02/24/2014 Scoliosis 10/07/2013 Back pain 10/07/2013 Hypothyroidism 10/06/2013 LSIL (low grade squamous int raepithelial lesion) on Pap smear 09/21/2012 Overview (09/21/2012): Will need colpo PP GBS carrier 08/18/2012 Overview (08/18/2012): Positive vaginal culture 08/2012; prophylaxis in labor, susceptible to both clindamycin and erythromycin Rh negative status during 08/17/2012 DM (diabetes mellitus), type 1, uncontrolled Depression 10/16/2009 Tachycardia Resolved Problems Problem Noted Date Diagnosed Date Resolved Date Constipation 06/02/2015 06/04/2015 DM (diabetes mellitus) in 08/18/2012 10/06/2013 Overview (08/27/2012): Repeat HGB A1C on 11/18/2012 Supervision of high-risk pre gnancy of young multigravida 08/18/2012 10/07/2013 Hypothyroid in , antepartum 08/18/2012 10/07/2013 Overview (08/27/2012): Repeat TSH 10/07/2012 Seizure disorder in , antepartum 08/18/2012 10/07/2013 Unspecified high-risk 10/16/2009 10/06/2013 Hyperthyroidism 10/16/2009 10/06/2013 Diabetes mellitus type I, uncontrolled 10/16/2009 10/06/2013 Immunizations Immunization Administration Dates Next Due Hepatitis [...] Never Smokeless Tobacco: Never Tobacco Cessation:Counseling Given: No Alcohol Use Standard Drinks/Week Comments No 0 (1 standard drink = 0.6 oz pur e alcohol) Comments No Sex and Gender Information Value Date Recorded Sex Assigned at Not on file 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 Gender Identity Not on file Sexual Orientation Not on file Occupation Industry Job Start Date Job End Date Not on file Not on file Not on file Not on file Not on file Not on file Not on file Not on file Not on file Not on file Not on file Not on file Last Filed Vital Signs Vital Sign Reading Time Taken Comments Blood Pressure 104/66 06/14/2020 11:24 AM CDT Pulse 96 06/14/2020 11:24 AM CDT Temperature 36.7 C (98 F) 02/15/2020 8:50 AM CDT Respiratory Rate 14 02/15/2020 8:50 AM CDT Oxygen Saturation 99% 02/15/2020 8:50 AM CDT Inhaled Oxygen Concentration - - Weight 75.8 kg (167 lb) 06/14/2020 11:24 AM CDT Height 167.6 cm (5' 6 ) 06/14/2020 11:24 AM CDT Body Mass Index 26.95 06/14/2020 11:24 AM CDT Plan of Treatment Health Maintenance Due Date Last Done Comments HEPATITIS B VACCINES (3 of 3 - 3-dose series) 12/08/2000 09/16/2000, 08/18/2000 DIABETES ANNUAL FOOT EXAM 2007 DTAP/TDAP/TD VACCINES (1 - Tdap) 2008 HPV VACCINES (1 - Risk 3-dos e SCDM series) 2016 Preventative Visit-Managed Medicaid 02/27/2017 02/27/2016 DIABETES HBA1C Q 6 MONTHS 05/12/20202018, 11/10/2019, 09/30/2018, Additional history exists DIABETES MICROALBUMIN ANNUAL SCREEN 11/10/2020 11/10/2019, 09/30/2018, 01/19/2016, Additional history exists LDL CHOLESTEROL ANNUAL 11/10/2020 9, 09/30/2018, 01/22/2017, Additional history exists HPV/Cotest (21-29) 02/26/2021 02/27/2016, 09/11/2012 HPV/Cotest (30-65) 02/26/2021 02/27/2016, 09/11/2012 CERVICAL CANCER SCREENING 06/15/2021 PAP SMEAR 06/15/2021 06/15/2018, 01/30, 01/04/2014, Additional history exists DIABETES ANNUAL RETINAL EXAM 11/12/2024, 01/25/2020, 05/20/2015 INFLUENZA VACCINE (#1) 2025 09/30/2018, 2012 Procedures Procedure Name Priority Date/Time Associated Diagnosis Comments DIABETES EYE EXAM Routine 01/25/2020 MICROALBUMIN/CREATI NINE RATIO, RANDOM UR Routine 11/10/2019 1:43 PM MACHINE SPRAYER Uncontrolled type 1 diabetes mellitus with hyperglycemia (CMS/HCC) LIPID PANEL Routine 11/10/2019 1:43 PM MACHINE SPRAYER Mixed hyperlipidemia HEMOGLOBIN A1C Routine 11/10/2019 1:43 PM MACHINE SPRAYER Uncontrolled type 1 diabetes mellitus with hyperglycemia (CMS/HCC) CERV/VAG CYTOPATH, THIN PREP RADIATOR REPAIRER Routine 06/15/2018 CERV/VAG CYTOPATH, THIN PREP IMAGR RFLX HPV Routine 02/27/2016 9:54 AM CDT Encounter for surveillance of contraceptive pills [Z30.41] Well woman exam from Last 3 Months or Most Recently Relevant to Health Maintenance Results * DIABETES EYE EXAM (01/25/2020) us Abstract Spg Provider HEALTH MAINTENANCE Final R esult * MICROALBUMIN/CREATININE RATIO, RANDOM UR (11/10/2019 1:43 PM MACHINE SPRAYER) MICROALBUMIN, URINE <1.2 No Reference Range mg/dL 11/10/2019 9:24 PM MACHINE SPRAYER [facility] CREATININE, URINE 42.4 29.0 - 226.0 mg/dL 11/10/2019 9:24 PM MACHINE SPRAYER [facility] Comment:Reference Range vari es with fluid intake and diet. Urine URINE SPECIMEN OBTAINED BY CLEAN CATCH PROCEDURE / Unknown Collection / Unknown 11/10/2019 1:43 PM MACHINE SPRAYER 11/10/2019 7:45 PM MACHINE SPRAYER Narrative [facility] - 11/10/2019 9:24 PM MACHINE SPRAYER Condition Microalbumin/Creat ratio Normal Males <17 Normal Females <25 Microalbuminuria Males 17-299 Microalbuminuria Females 25-299 Overt proteinuria >=300 Unable to calculate urine microalbumin/creatinine ratio because urine microalbumin result is outside of reportable range. Indy Magdaleno OFFICE ASSOCIATE URINE ORDERABLES Final Resul t [facility] Lookback [facility] CLIA# [id number] [facility] [address] * (ABNORMAL) HEMOGLOBIN A1C (11/10/2019 1:43 PM MACHINE SPRAYER) HEMOGLOBIN A1C 13.3(H) See Comment % 11/10/2019 9:27 PM MACHINE SPRAYER [facility] EST. AVG GLUCOSE, A1C 335 mg/dL 11/10/2019 9:27 PM MACHINE SPRAYER [facility] Blood Venipuncture / Unknown 11/10/2019 1:43 PM MACHINE SPRAYER 11/10/2019 7:46 PM MACHINE SPRAYER Korina [facility] - 11/10/2019 9:27 PM MACHINE SPRAYER HGB A1C INTERPRETATION NORMAL: <5.7% PRE-DIABETES: 5.7 - 6.4% DIABETES: 6.5% OR GREATER Falsely low A1C measurements can occur when: 1. Anemia and/or hemolytic anemia is present. 2. Hemoglobin variants present. 3. Renal failure. 4. Transfusion of blood product in the last 120 days. We recommend ordering a fructosamine test([id number]) to more accurately assess glycemic status if any of the above conditions are present. us Indy Magdaleno NP CHEMISTRY ORDERABLES Final R esult [facility] CLIA# [id number] [facility] [place] [address] * (ABNORMAL) LIPID PANEL (11/10/2019 1:43 PM MACHINE SPRAYER) CHOLESTEROL 207(H) <200 mg/dL 11/10/2019 8:51 PM [facility] TRIGLYCERIDE 209(H) <150 mg/dL 11/10/2019 8:51 PM [facility] HDL 63(H) 40 - 59 mg/dL 11/10/2019 8:51 PM [facility] LDL CALCULATED 102(H) <100 mg/dL 11/10/2019 8:51 PM [facility] NON-HDL CHOLESTEROL 144(H) <130 mg/dL 11/10/2019 8:51 PM [facility] Blood Venipuncture / Unknown 11/10/2019 1:43 PM MACHINE SPRAYER 11/10/2019 7:46 PM [facility] Korina [facility] - 11/10/2019 8:51 PM MACHINE SPRAYER TOTAL CHOLESTEROL mg/dL Desirable <200 Borderline high 200-239 High >=240 TRIGLYCERIDES mg/dL Normal <150 Borderline high 150-199 High 200-499 Very high >=500 HDL CHOLESTEROL mg/dL Low <40 Normal 40-59 Desirable >=60 NON HDL CHOLESTEROL mg/dL Optimal <130 Near Optimal 130-159 Borderline High 160-189 Very High >=190 Calculated LDL mg/dL Optimal <100 Near Optimal 100-129 Borderline High 130-159 High 160-189 Very High >=190 ATPIII Guidelines Reference Ranges for Lipid Panels (NCEP/AMA) us Indy Magdaleno NP CHEMISTRY ORDERABLES Final R esult [facility]# [id number] [address] [place] [address] * CERV/VAG CYTOPATH, THIN PREP RADIATOR REPAIRER (06/15/2018) Genital SWAB OF ENDOCERVIX / Unknown us Abstract Spg Provider PATHOLOGY/CYTOLOGY ORDERAB LES Final Result * CERV/VAG CYTOPATH, THIN PREP IMAGR RFLX HPV (02/27/2016 9:54 AM CDT) CASE REPORT Gynecologic Cytology Report Case: [id number] Authorizing Provider: Gaviota Gutierrez FNP Collected: 02/27/2016 0954 Ordering Location: [facility] Received: 02/28/[address] [place] [address] First Screen: Chika Caceres Specimen: LB PAP IM W/RFLX HPV PROT, Endocervical 03/05/2016 1:52 PM CDT [facility] Care Manager Specimen Adequacy Satisfactory for evaluation, endocervical/benítez sformation zone component absent 03/05/2016 1:52 PM CDT [facility] Care Manager General Categorization Negative For Intraepithelial Lesion Or Malignancy 03/05/2016 1:52 PM CDT [facility] Care Manager Interpretation Negative For Intraepithelial Lesion Or Malignancy 03/05/2016 1:52 PM CDT [facility] Verified by Chika Caceres on 03/05/2016 at 1352 CDT Comment: Routine follow-up is suggested. 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 It is most reliable when a satisfactory sample is obtained on a regular repetitive basis. Results must be interpreted in the context of historic and current clinical information. Recommend patient management according to the 2012 ASCCP Consensus Guidelines, ([place]: Cancer J Clin, 62(3); 147-172,2012) EMBEDDED IMAGE 03/05/2016 1:52 PM CDT [facility] Endocervical (Endocervical) 02/27/2016 9:54 AM CDT 02/28/2016 2:20 PM CDT us Gaviota LOPEZP PATHOLOGY/CYTOLOGY ORDERABLES Final Result [facility] CLIA# [id number] [address] [place] [address] from Last 3 Months or Most Recently Relevant to Health Maintenance Additional Health Concerns Infection Onset Date Last Indicated MRSA Comment:Wound 10/08/12 Wound 06/20/15 Nares 09/03/16 10/12/2012 10/12/[address] [place] [address] [address] [place] [address] [address] MEDICAID Advance Directives For more information, please contact: [phone] * Full Code (Latest Code Status on File) Date Activated Date Inactivated Comments 05/08/2017 8:29 AM 05/08/2017 1:07 PM * Full Code Date Activated Date Inactivated Comments 05/08/2017 7:00 AM 05/08/2017 8:29 AM * Full Code Date Activated Date Inactivated Comments 05/08/2017 6:16 AM 05/08/2017 7:00 AM * Full Code Date Activated Date Inactivated Comments 09/03/2016 8:19 AM 09/03/2016 1:30 PM * Full Code Date Activated Date Inactivated Comments 08/04/2015 11:27 AM 08/04/2015 3:07 PM Care Teams Soil Expert Relationship Specialty Start Date End Date Casey Mccall MD [address], [place] [address] PCP - General Family Practice 05/02/17
--- OUTSIDE RECORDS SUMMARY | 2025-08-27 11:24 | XMS_ITS | Encounter Summary ---
Author Organization [facility] Address [address] [place] [address] Care Team Providers Care Solaris Administrator Name Role Phone Casey Mccall MD Primary Care Provider Encounter Details Date Type Department Care Team (Latest Contact Info) Description 2006 Outpatient Historical [facility] [address] [place] [phone] Leigh Roberto, [facility] [address] [address] Major Depress Dis, Severe (CMS/HCC) (Primary Dx) Social History Tobacco Use Types Packs/Day Years Used Date Smoking Tobacco: Never Assessed Comments Unknown Sex and Gender Information Value Date Recorded Sex Assigned at Not on file 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 Gender Identity Not on file Sexual Orientation Not on file documented as of this encounter Plan of Treatment Not on file documented as of this encounter Visit Diagnoses Diagnosis Major depressive disorder, single episode, severe, without mention of psychotic behavior (CMS/HCC)- Primary Major depressive disorder, single episode, severe, without mention of psychotic behavior documented in this encounter Additional Health Concerns Infection Onset Date Last Indicated Resolved Time MRSA Comment:Wound 10/08/12 Wound 06/20/15 Nares 09/03/16 10/12/2012 10/12/2012 documented as of this encounter Care Teams Solaris Administrator Relationship Specialty Start Date End Date Casey Mccall MD [address] [phone] PCP - General Family Practice 05/02/17 documented as of this encounter
--- OUTSIDE RECORDS SUMMARY | 2025-08-27 11:24 | XMS_ITS | Encounter Summary ---
Author Organization [facility] Address [address] [place] [address] Care Team Providers Care Hospital Medical Biller Name Role Phone [place] Mccall MD Primary Care Provider Encounter Details Date Type Department Care Team (Late st Contact Info) Description 09/16/2012 Ancillary Orders [facility] [place] [address] [place] [phone] Apoorva Pérez MD [address] [facility] [address] [place] [phone] Diabetes mellitus, antepartum Social History Tobacco Use Types Packs/Day Years Used Date Smoking Tobacco: Never Smokeless Tobacco: Never Alcohol Use Standard Drinks/Week Comments No 0 (1 standard drink = 0.6 oz pur e alcohol) Comments Yes Sex and Gender Information Value Date Recorded Sex Assigned at Not on file 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
--- OUTSIDE RECORDS SUMMARY | 2025-08-27 11:24 | XMS_ITS | Encounter Summary ---
Author Organization [facility] Address [address] [place] [address] Care Team Providers Care Station Engineer Chief Name Role Phone Casey Mccall MD Primary Care Provider [phone] Encounter Details Date Type Department Care Team (Late st Contact Info) Description 09/16/2012 Ancillary Orders [facility] [place] [address] [place] [address] Apoorva Pérez MD [address] 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
--- OUTSIDE RECORDS SUMMARY | 2025-08-27 11:24 | XMS_ITS | Encounter Summary ---
Author Organization [facility] Address [address] [place] [address] Care Team Providers Care Gas Appliance Adjuster Name Role Phone Casey Mccall MD Primary Care Provider Encounter Details Date Type Department Care Team (Late st Contact Info) Description 09/02/2012 Ancillary Orders [address] [address] Charmaine Cary, [facility] [address] [place] [address] Diabetes mellitus type 1, uncontrolled; Epilepsy (CMS/HCC); High-risk Social History Tobacco Use Types Packs/Day Years Used Date Smoking Tobacco: Never Smokeless Tobacco: Never Alcohol Use Standard Drinks/Week Comments No 0 (1 standard drink = 0.6 oz pur e alcohol) Comments Yes Sex and Gender Information Value Date Recorded Sex Assigned at Not on file 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
--- OUTSIDE RECORDS SUMMARY | 2025-08-27 11:24 | XMS_ITS | Encounter Summary ---
Author Organization [facility] Address [address] [place] [address] Care Team Providers Care Fisher Seal Name Role Phone Casey Mccall MD Primary Care Provider Encounter Details Date Type Department Care Team (Latest Contact Info) Description 10/17/2009 Ancillary Orders [address] [phone] Alberto Foster MD [address] [place] [address] Unspecified High-Risk ; Unspecified Epilepsy without Mention of Intractable Epilepsy (CMS/HCC); Hyperthyroidism; Depression; Diabetes Mellitus Type I, Uncontrolled Social History Tobacco Use Types Packs/Day Years Used Date Smoking Tobacco: Never Alcohol Use Standard Drinks/Week Comments No 0 (1 standard drink = 0.6 oz pur e alcohol) Comments Yes Sex and Gender Information Value Date Recorded Sex Assigned at Not on file 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 Gender Identity Not on file Sexual Orientation Not on file documented as of this encounter Plan of Treatment Not on file documented as of this encounter Visit Diagnoses Diagnosis Unspecified high-risk Unspecified epilepsy without mention of intractable epilepsy (CMS/HCC) Unspecified epilepsy without mention of intractable epilepsy Hyperthyroidism Thyrotoxicosis without mention of goiter or other cause, without mention of thyrotoxic crisis or storm Depression Depressive disorder, not elsewhere classified Diabetes mellitus type I, uncontrolled Type I (juvenile type) diabetes mellitus without mention of complication, uncontrolled documented in this encounter Additional Health Concerns Infection Onset Date Last Indicated Resolved Time MRSA Comment:Wound 10/08/12 Wound 06/20/15 Nares 09/03/16 10/12/2012 10/12/2012 documented as of this encounter Care Teams Fisher Seal Relationship Specialty Start Date End Date Casey Mccall MD [address] [place] [address] PCP - General Family Practice 05/02/17 documented as of this encounter
--- OUTSIDE RECORDS SUMMARY | 2025-08-27 11:24 | XMS_ITS | Encounter Summary ---
Author Organization [facility] Address [address] [place] [address] Care Team Providers Care Waterproofer Name Role Phone Casey Mccall MD Primary Care Provider [phone] Reason for Referral * Outpatient Services (Routine) - Closed Specialty Diagnoses / Procedures Referred By Contac t Referred To Contact Diagnoses Seizure disorder (CMS/HCC) Other specified transient cerebral ischemias Procedures MRI BRAIN WO CONTRAST MRI BRAIN W WO CONTRAST Francis Brown MD [facility] Pre-Registration [place] CALL TO MAKE APPOINTMENT ONLY [address] [place] [address] Phone: tel: fax: Referral ID Status Reason Start Date Expiration Date V isits Requested Visits Authorized [id number] Closed F [facility] TO SCHEDULE (SGF) 05/22/2015 06/21/2015 1 1 Encounter Details Date Type Department Care Team (Late st Contact Info) Description 05/22/2015 Ancillary Orders [facility] Neurology- [place] 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 Exam: MRI BRAIN WO CONTRAST Date/Time of Exam: May 22, 2015 09:03:30 AM Reason For Exam: Unspecified epilepsy without mention of intractable epilepsy. Technique: Multiplanar, multisequence MR images were obtained through the brain without contrast. Findings: Midline structures are normal. Ventricles are nondilated. Brain signal and morphology show no pathologic alteration. No diffusionopathy, hemorrhage or mass lesion. Medial temporal lobes appear normal and symmetric. Intracranial arterial and dural venous sinus flow voids are maintained. Orbits, paranasal sinuses and temporal bones are grossly unremarkable as imaged. There is a small left maxillary sinus mucous retention cyst noted. Impression: Normal MR imaging of the brain. JCP/david - uploaded from [employer] - Narrative Procedure Note Enrique Billingsley DO - 05/22/2015 IMPRESSION IMPRESSION: See report below. Exam: MRI BRAIN WO CONTRAST Date/Time of Exam: May 22, 2015 09:03:30 AM Reason For Exam: Unspecified epilepsy without mention of intractable epilepsy. Technique: Multiplanar, multisequence MR images were obtained through the brain without contrast. Findings: Midline structures are normal. Ventricles are nondilated. Brain signal and morphology show no pathologic alteration. No diffusionopathy, hemorrhage or mass lesion. Medial temporal lobes appear normal and symmetric. Intracranial arterial and dural venous sinus flow voids are maintained. Orbits, paranasal sinuses and temporal bones are grossly unremarkable as imaged. There is a small left maxillary sinus mucous retention cyst noted. Impression: Normal MR imaging of the brain. JCP/eaw - uploaded from [employer] - us Francis Brown MD MR ORDERABLES Final Result documented in this encounter Visit Diagnoses Diagnosis Seizure disorder (CMS/HCC) Unspecified epilepsy without mention of intractable epilepsy Other specified transient cerebral ischemias Seizure disorder (CMS/HCC)- Primary Unspecified epilepsy without mention of intractable epilepsy Other specified transient cerebral ischemias documented in this encounter Additional Health Concerns Infection Onset Date Last Indicated Resolved Time MRSA Comment:Wound 10/08/12 Wound 06/20/15 Nares 09/03/16 10/12/2012 10/12/2012 documented as of this encounter Care Teams Waterproofer Relationship Specialty Start Date End Date Casey Mccall MD [address] [place] [address] PCP - General Family Practice 05/02/17 documented as of this encounter
--- OUTSIDE RECORDS SUMMARY | 2025-08-27 11:24 | XMS_ITS | Encounter Summary ---
Author Organization [facility] Address [address] [place] [address] Care Team Providers Care Vine Pruner Name Role Phone Unavailable Primary Care Provider Unavailabl e Encounter Details Date Type Department Care Team (Late st Contact Info) Description 08/23/2025 External Device Data [facility] ABSTRACTION Provider, Abstract NO ADDRESS ON FILE Social History Tobacco Use Types Packs/Day Years [...] PM CDT Legal Sex Female 12:20 PM MANAGER PACU Gender Identity Female 10/07/2024 3:03 PM MANAGER PACU Sexual Orientation Not on file documented as of this encounter Plan of Treatment Upcoming Encounters Date Type Department Care Team (Late st Contact Info) Description 03/10/2026 10:45 AM CDT Office Visit [facility] Neurology - [place] [address] [place] [address] Zoltan Contreras MD [address] [place] [address] documented as of this encounter Visit Diagnoses Not on filedocumented in this encounter Additional Health Concerns Assessment Noted Time PHQ-9 Depression Total Score: 3 11/10/20 19 3:00 PM MANAGER PACU documented as of this encounter
--- OUTSIDE RECORDS SUMMARY | 2025-08-27 11:24 | XMS_ITS | Encounter Summary ---
Author Organization [facility] Address [address] [place] [address] Care Team Providers Care Experimental Plastics Fabricator Name Role Phone Casey Mccall MD Primary Care Provider Encounter Details Date Type Department Care Team (Late st Contact Info) Description 08/14/2012 Ancillary Orders [address] [address] Charmaine Cary, [facility] [address] [place] [address] Diabetes mellitus type 1, uncontrolled; Epilepsy (CMS/HCC); High-risk Social History Tobacco Use Types Packs/Day Years Used Date Smoking Tobacco: Never Smokeless Tobacco: Never Alcohol Use Standard Drinks/Week Comments No 0 (1 standard drink = 0.6 oz pur e alcohol) Comments Yes Sex and Gender Information Value Date Recorded Sex Assigned at Not on file 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
--- OUTSIDE RECORDS SUMMARY | 2025-08-27 11:24 | XMS_ITS | Encounter Summary ---
Author Organization [facility] Address [address] [place] [address] Care Team Providers Care Lottery Manager Name Role Phone Casey Mccall MD Primary Care Provider [phone] Encounter Details Date Type Department Care Team (Latest Contact Info) Description 07/23/2005 Outpatient [facility] Oral and Maxillo Surgery- [address] [place] [address] Jerry Mccoy, DDS [address], [place] [address] UNSPEC DENTAL CARIES (Primary Dx) Social History Tobacco Use Types Packs/Day Years Used Date Smoking Tobacco: Never Assessed Comments Unknown Sex and Gender Information Value Date Recorded Sex Assigned at Not on file 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 Gender Identity Not on file Sexual Orientation Not on file documented as of this encounter Plan of Treatment Not on file documented as of this encounter Visit Diagnoses Diagnosis Unspecified dental caries- Primary documented in this encounter Additional Health Concerns Infection Onset Date Last Indicated Resolved Time MRSA Comment:Wound 10/08/12 Wound 06/20/15 Nares 09/03/16 10/12/2012 10/12/2012 documented as of this encounter Care Teams Lottery Manager Relationship Specialty Start Date End Date Casey Mccall MD [address] [place] [address] PCP - General Family Practice 05/02/17 documented as of this encounter
--- OUTSIDE RECORDS SUMMARY | 2025-08-27 11:24 | XMS_ITS | Encounter Summary ---
Author Organization [facility] Address [address] [place] [address] Care Team Providers Care Typewriter Ribbon Winder Name Role Phone Casey Mccall MD Primary Care Provider Encounter Details Date Type Department Care Team (Late st Contact Info) Description 10/13/2012 Ancillary Orders [facility] O[facility]-[place] [address] [place] [address] Apoorva Pérez MD [address] [facility] [address] [place] [address] Diabetes mellitus, antepartum Social History Tobacco Use Types Packs/Day Years Used Date Smoking Tobacco: Never Smokeless Tobacco: Never Alcohol Use Standard Drinks/Week Comments No 0 (1 standard drink = 0.6 oz pur e alcohol) Comments Yes Sex and Gender Information Value Date Recorded Sex Assigned at Not on file Legal Sex Female 2:44 AM CODIFIER Gender Identity Not on file Sexual Orientation Not on file Occupation Industry Job Start Date Job End Date Not on file Not on file Not on file Not on file Not on file Not on file Not on file Not on file documented as of this encounter Plan of Treatment Not on file documented as of this encounter Results * US OB DETAIL SINGLE GEST (10/13/2012 1:51 PM CODIFIER) Anatomical Region Laterality Modality Pelvis Ultrasound us Apoorva Pérez MD US ORDERABLES Final R esult documented in this encounter Visit Diagnoses Diagnosis Diabetes mellitus, antepartum(648.03) Diabetes mellitus, antepartum documented in this encounter Additional Health Concerns Infection Onset Date Last Indicated Resolved Time MRSA Comment:Wound 10/08/12 Wound 06/20/15 Nares 09/03/16 10/12/2012 10/12/2012 documented as of this encounter Care Teams Typewriter Ribbon Winder Relationship Specialty Start Date End Date Casey Mccall MD [address] [place] [address] PCP - General Family Practice 05/02/17 documented as of this encounter
--- OUTSIDE RECORDS SUMMARY | 2025-08-27 11:24 | XMS_ITS | Encounter Summary ---
Author Organization [facility] Address [address] [place] [address] Care Team Providers Care Sheriff'S Sergeant Name Role Phone Casey Mccall MD Primary Care Provider Encounter Details Date Type Department Care Team (Latest Contact Info) Description 10/03/2006 Outpatient Historical [facility] Medicine- Deputy [address] [place] [address] Leigh Roberto, [facility] 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
--- OUTSIDE RECORDS SUMMARY | 2025-08-27 11:24 | XMS_ITS | Encounter Summary ---
Author Organization [facility] Address [address] [place] [address] Care Team Providers Care Brine Maker Name Role Phone Casey Mccall MD Primary Care Provider [phone] Encounter Details Date Type Department Care Team (Late st Contact Info) Description 09/16/2012 Ancillary Orders [facility] [place] [address] [place] [address] Apoorva Pérez MD [address] [facility] [address] [place] [address] Diabetes mellitus, antepartum Social History Tobacco Use Types Packs/Day Years Used Date Smoking Tobacco: Never Smokeless Tobacco: Never Alcohol Use Standard Drinks/Week Comments No 0 (1 standard drink = 0.6 oz pur e alcohol) Comments Yes Sex and Gender Information Value Date Recorded Sex Assigned at Not on file 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
--- OUTSIDE RECORDS SUMMARY | 2025-08-27 11:24 | XMS_ITS | Encounter Summary ---
Author Organization [facility] Address [address] [place] [address] Care Team Providers Care Respiratory Therapy Director Name Role Phone Casey Mccall MD Primary Care Provider Reason for Referral * Outpatient Services (Routine) - Closed Specialty Diagnoses / Procedures Referred By Contchristiano t Referred To Contact Perinatology Diagnoses Diabetes mellitus type 1, uncontrolled Epilepsy (CMS/HCC) High-risk Procedures US OB LTD NUCHAL TRANS SNGL GEST Charmaine Cary FNP [address] [place] [address] Phone: tel: fax: [facility] [place] [address] Phone: tel: fax: Referral ID Status Reason Start Date Expiration Date Visits Re quested Visits Authorized [id number] Closed 08/18/2012 08/18/2013 1 1 Encounter Details Date Type Department Care Team (Late st Contact Info) Description 08/18/2012 Ancillary Orders 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 Gender Identity Not on file Sexual Orientation Not on file Occupation Industry Job Start Date Job End Date Not on file Not on file Not on file Not on file documented as of this encounter Plan of Treatment Not on file documented as of this encounter Results * US OB LTD NUCHAL TRANS SNGL GEST (08/18/2012 11:16 AM CDT) Anatomical Region Laterality Modality Pelvis Ultrasound us Charmaine Cary TELEMETRY TECHNICIAN US ORDERABLES Final Result documented in this [...] documented as of this encounter Care Teams Respiratory Therapy Director Relationship Specialty Start Date End Date Casey Mccall MD [address] [place] [address] PCP - General Family Practice 05/02/17 documented as of this encounter
--- NOTE | 2025-08-27 11:30 | ED_ITS ---
HPI - Weakness 2 General: Chief complaint: Weakness Stated complaint: NV / body ache Time Seen by Provider: 08/27/25 11:21 History of Present Illness: 34-year-old female with a history of obe sity, fibromyalgia, insomnia, hypertension, type 1 diabetes, hypothyroidism and seizure disorder who presents to the emergency room with weakness and nausea. This has been going on for about 3 weeks. She says even water makes her nauseous. She says she was given Zofran and that has not been helping. Her PCP thought it might be related to semaglutide she has been using. No focal abdominal pain. No fevers. No altered mental status. Related Data Home Medications ?Medication ?Instructions ?Recorded ?Confirmed ibuprofen 200 mg tablet (Advil) 400 mg PO Q6H PRN Pain 10/22/24 08/10/25 Previous Rx's ?Medication ?Instructions ?Recorded pen needle, diabetic 29 gauge x #360 ea 02/16/2112/02 (BD Ultra-Fine Original Pen Needle) lancets 33 gauge ([employer] Delica #360 ea 08/21/21 Lancets) blood-glucose,injection molding machine setter,cont #1 ea 01/22/22 (Dexcom G6 Dental Scheduler) insulin pump cartridge #30 ea 08/06/22 blood sugar diagnostic #100 ea 03/27/23 blood sugar diagnostic (Blood #100 ea 09/01/23 Glucose Test strips) blood-glucose meter (Blood Glucose #1 ea 09/01/23 Monitoring kit) insulin pump cart,automated,BT #5 ea 09/27/24 (Omnipod 5 G6 Pods (Gen 5) subcutaneous cartridge) exenatide 10 mcg/dose(250 10 mcg (0.04 mL) SUBCUT BID 90 02/07/25 mcg/mL)2.4 mL subcutaneous pen days #7.2 mL injector (Byetta) insulin aspart U-100 100 unit/mL See Rx Instructions . Route 02/24/25 subcutaneous solution .COMPLEX #30 mL insulin lispro 100 unit/mL See Rx Instructions .Route 05/09/25 subcutaneous solution (Humalog .COMPLEX #90 mL U-100 Insulin) dicyclomine 20 mg tablet 20 mg PO BID PRN abdominal p ain 05/10/25 #30 tabs insulin pump cart,auto,BT,G6/7 #5 ea 06/13/25 (Omnipod 5 G6-G7 Pods (Gen 5) subcutaneous cartridge) furosemide 20 mg tablet (Lasix) 40 mg (2 x 20 mg) PO D AILY 90 days 07/04/25 #135 tabs levetiracetam 750 mg tablet 750 mg PO BID 90 days #180 tabs 07/04/25 (Keppra) metoprolol succinate 25 mg 25 mg PO DAILY 90 days #90 tabs 07/04/25 tablet,extended release 24 hr potassium chloride 10 mEq 10 meq PO DAILY 90 days #90 tabs 07/04/25 tablet,extended release zolpidem 10 mg tablet 10 mg PO BEDTIME 30 days #30 tabs 07/04/25 blood-glucose transmitter (Dexcom #1 ea 08/02/25 G6 Transmitter device) diclofenac sodium 75 mg 75 mg PO Q12H PRN moderate t o 08/02/25 tablet,delayed release severe pain as needed #30 ta bs duloxetine 60 mg capsule,delayed 60 mg PO DAILY #180 c aps 08/02/25 release gabapentin 300 mg capsule See Rx Instructions PO TID 3 0 days 08/02/25 #150 caps leflunomide 20 mg tablet 20 mg PO DAILY #30 tabs 01/25 tirzepatide (weight loss) 10 10 mg (0.5 mL) SUBCUT Q7D #2 mL 08/02/25 mg/0.5 mL subcutaneous pen injector ondansetron HCl 4 mg tablet 4 mg PO TID PRN nausea and 08/10/25 vomiting #20 tabs fluticasone propionate 50 See Rx Instructions .Route 0 08/15/25 mcg/actuation nasal .COMPLEX #16 grams spray,suspension levothyroxine 125 mcg tablet See Rx Instructions .Rout e 08/15/25 .COMPLEX #34 tabs blood-glucose sensor (Dexcom G6 #3 ea 08/22/25 Sensor device) cefdinir 300 mg capsule 300 mg PO BID 7 days #14 cap s 08/27/25 ondansetron 8 mg disintegrating 8 mg PO Q6H #14 tabs 0 08/27/25 tablet promethazine 25 mg rectal 25 mg ID Q6H PRN nausea and 08/27/25 suppository vomiting #12 ea Allergies Allergy/AdvReac Type Severity Reaction Status Date / Time adhesive tape Allergy Unknown UNKNOWN Verified 08/02/25 11:05 clarithromycin (From Biaxin) Allergy Unknown UNKNOWN Verified 08/02/25 11:05 Penicillins Allergy Unknown UNKNOWN Verified 08/02/25 11:05 [facility] ED 2 [facility]: Medical History (Updated 08/27/25 @ 14:33 by Marce Maza MD) Trochanteric bursitis of left hip Greater trochanteric pain syndrome of left lower extremity High risk medication use Seronegative rheumatoid arthritis of both hands Fibromyalgia Seasonal allergies AV (generalized anxiety disorder) Insomnia Failed trazodone Essential hypertension Off lisinopril due to low BP. Scoliosis Epilepsy Type 1 diabetes mellitus Hypothyroidism Surgical History H/O section S/P cholecystectomy Family History Family/Other Breast cancer maternal aunt Colon cancer Prostate cancer PATERNAL UNCLE Sister Colon cancer Grandmother Colon cancer PGM Diabetes mellitus, type 2 Mother Diabetes mellitus, type 2 Father Diabetes mellitus type 1 Daughter Diabetes mellitus type 1 Other Hypertension Denies family history of Ovarian cancer Uterine cancer Social History Smoking and tobacco/nicotine status: never used tobacco/nicotine Second hand smoke exposure: No Alcohol intake: never Substance/Drug Use: never Do you think of yourself as: Straight/Heterosexual Current gender identity: Female Female Reproductive History: Spontaneous abortions: No Physical Exam 2 Narrative: EXAM NARRATIVE: General: Alert, no acute distress. Skin: Warm, dry. Head: Normocephalic, atraumatic. Neck: Supple, trachea midline. Eye: Extraocular movements are intact. Ears, nose, mouth and throat: Tacky oral mucosa Cardiovascular: Regular, mildly tachycardic, normal peripheral perfusion. Respiratory: Lungs are clear to auscultation, respirations are non-labored, breath sounds are equal, Symmetrical chest wall expansion. Gastrointestinal: Soft, Nontender, Non distended Musculoskeletal: Normal ROM, no deformity. Neurological: Alert and oriented, No focal neurological deficit observed. Psychiatric: Cooperative, appropriate mood & affect. Course 2 Vital Signs: Vital signs: Vital Signs Temperature 98.2 F 08/27/25 11:24 Pulse Rate 115 H 08/27/25 11:24 Respiratory Rate 16 08/27/25 11:24 Blood Pressure 137/81 08/27/25 11:24 Pulse Oximetry 100 08/27/25 11:24 Oxygen Delivery Me thod Room Air 08/27/25 11:24 MDM - Weakness Medical Decision Making Medical decision making: Differential diagnosis for patient presenting with generalized weakness including but not limited to and based on the above HPI, review of systems and physical exam: Sepsis. Dehydration. Renal failure. Electrolyte abnormalities. Anemia. Congestive heart failure. Hypotension. Coronary syndrome. Hepatitis. Cirrhosis. Infections such as pneumonia, urinary tract infection, [place] illness, Cellulitis, Viral infections including influenza and Covid-19. Workup: labwork and lab/exam driven imaging ordered to evaluate, rule in and rule out above pathologies. Lab Review: Laboratory results were reviewed and interpreted by myself the emergency room physician. No leukocytosis. No anemia. Mild renal insufficiency with a BUN/creatinine of 19 and 1.2. Urinalysis does show signs of infection. Lipase is normal. Liver enzymes are normal. I reviewed the patient's medical record. Reexamination: Patient remained stable. No increased work of breathing. No altered mental status. No focal motor deficits. Assessment and plan: Nausea Dehydration Urinary tract infection Probable medication side effect ? Normal saline bolus and IV Rocephin. - Discharged home - Discussed plan with patient. Answered any questions. - Evaluation and treatment of this problem were appropriate in the emergency setting. Lab Data 08/27/25 12:24 08/27/25 12:24 Laboratory Results WBC 7.27 10^3/uL (3.29-11.43) 08/27/25 12:24 RBC 3.94 10^6/uL (3.85-5.65) 08/27/25 12:24 Hgb 12.30 g/dL (11.27-16.99) 08/27/25 12:24 Hct 38.8 % (36-47) 08/27/25 12:24 MCV 98.5 fl (85-98) H 08/27/25 12:24 MCH 31.2 pg (27-33) 08/27/25 12:24 MCHC 31.7 g/dL (30-55) 08/27/25 12:24 RDW 12.0 % (12.1-15.1) L 08/27/25 12:24 Plt Count 167 10^3/cmm (157-399) 08/27/25 12:24 MPV 11.4 fL (7.4-10.4) H 08/27/25 12:24 Neut % (Auto) 68.0 % 08/27/25 12:24 Lymph % (Auto) 25.0 % 08/27/25 12:24 [place] % (Auto) 5.6 % 08/27/25 12:24 Eos % (Auto) 0.7 % 08/27/25 12:24 Baso % (Auto) 0.6 % 08/27/25 12:24 Neut # (Auto) 4.94 10^3/uL (1.8-7.7) 08/27/25 12:24 Lymph # (Auto) 1.8 10^3/uL (0.8-4.8) 08/27/25 12:24 [place] # (Auto) 0.4 10^3/uL (0.2-0.9) 08/27/25 12:24 Eos # (Auto) 0.1 10^3/uL (0.0-0.8) 08/27/25 12:24 Baso # (Auto) 0.0 10^3/uL (0.0-0.1) 08/27/25 12:24 Nucleated RBC % (auto) 0 % 08/27/25 12:24 Nucleated RBCs # 0.0 /100WBC 08/27/25 12:24 Sodium 141 mmol/L (136-145) 08/27/25 12:24 Potassium 3.7 mmol/L (3.5-5.1) 08/27/25 12:24 Chloride 101 mmol/L (98-107) 08/27/25 12:24 Carbon Dioxide 24 mmol/L (22-29) 08/27/25 12:24 Anion Gap 19.7 (5-19) H 08/27/25 12:24 BUN 19 mg/dL (6-20) 08/27/25 12:24 Creatinine 1.2 mg/dL (0.5-0.9) H 08/27/25 12:24 GFR Calculation 51.1 mL/min (90-130) L 08/27/25 12:24 Glucose 174 mg/dL (65-115) H 08/27/25 12:24 Calculated Osmolality 298 mOsm/kg (285-295) H 08/27/25 12:24 Lactic Acid 1.2 mmol/L (0.5-2.2) 08/27/25 12:24 Calcium 9.1 mg/dL (8.5-10.5) 08/27/25 12:24 Total Bilirubin 0.5 mg/dL (0.15-1.2) 08/27/25 12:24 AST 23 U/L (0-32) 08/27/25 12:24 ALT 21 U/L (0-33) 08/27/25 12:24 Alkaline Phosphatase 117 U/L (35-105) H 08/27/25 12:24 C-Reactive Protein 9.9 mg/L (0.0-4.9) H 08/27/25 12:24 Total Protein 7.9 g/dL (6.6-8.7) 08/27/25 12:24 Albumin 4.0 g/dL (3.5-5.2) 08/27/25 12:24 Globulin 3.9 g/dL (1.3-4.6) 08/27/25 12:24 Lipase 18 U/L (13-60) 08/27/25 12:24 Urine Color Dark yellow (Yellow) A 08/27/25 13:38 Urine Appearance Cloudy (CLEAR) A 08/27/25 13:38 Urine pH 5.0 (5-7) 08/27/25 13:38 Ur Specific [place] 1.025 (1.005-1.030) 08/27/25 13:38 Urine Protein Trace (Negative) A 08/27/25 13:38 Urine Glucose (UA) Trace (Normal) H 08/27/25 13:38 Urine Ketones 3+ (Negative) H 08/27/25 13:38 Urine Blood Negative (Negative) 08/27/25 13:38 Urine Nitrate Negative (Negative) 08/27/25 13:38 Urine Bilirubin Negative (Negative) 08/27/25 13:38 Urine Urobilinogen 1.0 mg/dL (Negative) 08/27/25 13:38 Ur Leukocyte Esterase 2+ (Negative) A 08/27/25 13:38 Urine RBC 0-2 /hpf (0-2) 08/27/25 13:38 Urine WBC 21-50 /hpf (0-5) H 08/27/25 13:38 Ur Squamous Epith Cells 6-10 /hpf (0-5) 08/27/25 13:38 Amorphous Sediment Not Reportable 08/27/25 13:38 Urine Bacteria 2+ /hpf (NONE) H 08/27/25 13:38 Hyaline Casts 26.47 /lpf 08/27/25 13:38 Influenza A (PCR) Negative (Negative) 08/27/25 11:27 Influenza Type B (PCR) Negative (Negative) 08/27/25 11:27 RSV (PCR) Negative (Negative) 08/27/25 11:27 SARS-CoV-2 (PCR) Negative (Negative) 08/27/25 11:27 No radiology studies performed this visit Discharge Plan Discharge Patient Disposition: Home Clinical Impression: Dehydration, Urinary tract infection Condition: Stable Prescriptions: New promethazine 25 mg suppository 25 mg ID Q6H PRN (Reason: nausea and vomiting) Qty: 12 0RF ondansetron 8 mg tablet,disintegrating 8 mg PO Q6H Qty: 14 0RF Rx Instructions: Take 1/2-1 tab every 6 hours as needed for nausea and vomiting cefdinir 300 mg capsule 300 mg PO BID 7 Days Qty: 14 0RF No Action (DME) pen needle, diabetic [BD Ultra-Fine Orig Pen Needle] 29 gauge x 1/2 needle See Rx Instructions .ROUTE .MEDSUPPLY Qty: 360 3RF Rx Instructions: use with insulin 4 times a day (DME) Dexcom G6 Dental Scheduler Misc See Rx Instructions .Route Qty: 1 0RF Rx Instructions: As directed (DME) lancets [OneTouch Delica Lancets] 33 gauge misc See Rx Instructions .ROUTE .MEDSUPPLY Qty: 360 3RF Rx Instructions: test blood sugar 4 times a day exenatide [Byetta] 10 mcg/dose(250 mcg/mL) 2.4 mL pen injector 10 mcg SUBCUT BID 90 Days Qty: 7.2 1RF diclofenac sodium 75 mg tablet,delayed release (DR/EC) 75 mg PO Q12H PRN (Reason: moderate to severe pain as needed) Qty: 30 1RF duloxetine 60 mg capsule,delayed release(DR/EC) 60 mg PO DAILY Qty: 180 1RF gabapentin 300 mg capsule See Rx Instructions PO TID 30 Days Qty: 150 5RF Rx Instructions: take 600mg in am, 300mg in afternoon and 600mg at hs orally daily; leflunomide 20 mg tablet 20 mg PO DAILY Qty: 30 4RF (DME) blood sugar diagnostic Strip See Rx Instructions .ROUTE .MEDSUPPLY Qty: 100 6RF Rx Instructions: test 3 times daily (DME) Blood Glucose Test Strip See Rx Instructions .Route Qty: 100 0RF Rx Instructions: check BG three times per day (DME) blood-glucose meter [Blood Glucose Monitoring] Kit See Rx Instructions .Route Qty: 1 0RF Rx Instructions: As directed insulin lispro [Humalog U-100 Insulin] 100 unit/mL solution See Rx Instructions .ROUTE .COMPLEX MDD 60 Qty: 90 3RF Rx Instructions: via insulin pump zolpidem 10 mg tablet 10 mg PO BEDTIME 30 Days Qty: 30 4RF potassium chloride 10 mEq tablet extended release 10 meq PO DAILY 90 Days Qty: 90 1RF metoprolol succinate 25 mg tablet extended release 24 hr 25 mg PO DAILY 90 Days Qty: 90 1RF levetiracetam [Keppra] 750 mg tablet 750 mg PO BID 90 Days Qty: 180 1RF furosemide [Lasix] 20 mg tablet 40 mg PO DAILY 90 Days Qty: 135 1RF Rx Instructions: 1-2 daily as directed ondansetron HCl 4 mg tablet 4 mg PO TID PRN (Reason: nausea and vomiting) Qty: 20 0RF (DME) insulin pump cartridge Cartridge See Rx Instructions .Route Qty: 30 3RF Rx Instructions: As directed, change pod every 3 days (DME) Omnipod 5 G6 Pods (Gen 5) Cartridge See Rx Instructions .ROUTE .COMPLEX Qty: 5 3RF Dose Instruction: CHANGE POD EVERY 3 DAYS Rx Instructions: CHANGE POD EVERY 3 DAYS insulin aspart U-100 100 unit/mL solution See Rx Instructions .ROUTE .COMPLEX Qty: 30 3RF Dose Instruction: VIA PUMP WITH A MAX DOSE OF 60 UNITS/DAY. Rx Instructions: VIA PUMP WITH A MAX DOSE OF 60 UNITS/DAY. dicyclomine 20 mg tablet 20 mg PO BID PRN (Reason: abdominal pain) Qty: 30 0RF (DME) Omnipod 5 G6-G7 Pods (Gen 5) Cartridge See Rx Instructions .ROUTE .COMPLEX Qty: 5 3RF Dose Instruction: CHANGE POD EVERY 3 DAYS (G6) Rx Instructions: CHANGE POD EVERY 3 DAYS (G6) (DME) Dexcom G6 Transmitter Device See Rx Instructions .ROUTE .COMPLEX Qty: 1 1RF Dose Instruction: USE DIRECTEDNEED APPOINTMENT [facility] ANY MORE REFILLS Rx Instructions: USE DIRECTEDNEED APPOINTMENT [facility] ANY MORE REFILLS tirzepatide (weight loss) 10 mg/0.5 mL pen injector 10 mg SUBCUT Q7D Qty: 2 3RF levothyroxine 125 mcg tablet See Rx Instructions .ROUTE .COMPLEX Qty: 34 3RF Dose Instruction: TAKE ONE TABLET BY MOUTH DAILY FRIDAY TILL FRIDAY, AND 2 ON SUNDAYS Rx Instructions: TAKE ONE TABLET BY MOUTH DAILY FRIDAY TILL FRIDAY, AND 2 ON SUNDAYS fluticasone propionate 50 mcg/actuation spray,suspension See Rx Instructions .ROUTE .COMPLEX Qty: 16 1RF Dose Instruction: 1 SPRAY IN EACH NOSTRIL EVERY 12 HOURS Rx Instructions: 1 SPRAY IN EACH NOSTRIL EVERY 12 HOURS (DME) Dexcom G6 Sensor Device See Rx Instructions .ROUTE .COMPLEX Qty: 3 3RF Dose Instruction: CHANGE EVERY 10 DAYS Rx Instructions: CHANGE EVERY 10 DAYS ibuprofen [Advil] 200 mg Tablet 400 mg PO Q6H PRN (Reason: Pain) Discharge Orders: Discharge ED (Routine); Ordered 08/27/25 Ordered By: Marce Maza Referrals: Moraima Medrano MD [Primary Care Provider, Family Practice] Discharge Diet: Advance as tolerated Discharge Activity: Increase activity as tolerated Patient Instructions: Urinary Tract Infection in Women (ED), Opioid Safety, Pain Management, Patient Portal & John Instructions Activity Restrictions/Additional Instructions: Thank you for choosing [facility] for your healthcare needs today. You have been screened and evaluated and felt safe for discharge. Health conditions do change or evolve sometimes and as such it is important that you follow up with your Primary Doctor to be re checked, 3-5 days is a general good time frame for follow up. 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
[2025-08-27] MEDS: ondansetron 2 mg/ML SDV 2 mL 8 MG IVP (11:34)
[2025-08-27 12:25] LABS: Respiratory Syncytial Virus Ce NEGATIVE (Negative); SARS-CoV-2 PCR NEGATIVE (Negative)
[2025-08-27 12:29] LABS: Hematocrit 38.8 % (36-47); Hemoglobin 12.30 g/dL (11.27-16.99); Mean Corpuscular HGB Conc 31.7 g/dL (30-55); Mean Corpuscular Hemoglobin 31.2 pg (27-33); Mean Corpuscular Volume 98.5 fl (85-98); Nucleated Red Blood Cells % 0 %; Platelet Count 167 10^3/cmm (157-399); Red Blood Count 3.94 10^6/uL (3.85-5.65); White Blood Count 7.27 10^3/uL (3.29-11.43)
[2025-08-27 12:48] LABS: Alanine Aminotransferase 21 U/L (0-33); Albumin Level 4.0 g/dL (3.5-5.2); Alkaline Phosphatase 117 U/L (35-105); Anion Gap 19.7 (5-19); Aspartate Amino Transferase 23 U/L (0-32); Blood Urea Nitrogen 19 mg/dL (6-20); Calcium 9.1 mg/dL (8.5-10.5); Carbon Dioxide 24 mmol/L (22-29); Chloride 101 mmol/L (98-107); Globulin 3.9 g/dL (1.3-4.6); Glucose 174 mg/dL (65-115); Lipase 18 U/L (13-60); Osmolality Calculated 298 mOsm/kg (285-295); Potassium 3.7 mmol/L (3.5-5.1); Sodium 141 mmol/L (136-145); Total Protein 7.9 g/dL (6.6-8.7)
[2025-08-27 12:49] LABS: Lactic Sepsis W/Reflex 1.2 mmol/L (0.5-2.2)
[2025-08-27 13:44] LABS: Glucose Urine UA Trace (Normal); Nitrate Urine Negative (Negative); Specific Gravity, Urine 1.025 (1.005-1.030)
[2025-08-27 14:07] LABS: UA Slide Review UA Slide Review Perf
--- NOTE | 2025-08-27 14:50 | XRR_ITS ---
PROCEDURE INFORMATION: Exam: XR Right Humerus Exam date and time: 08/27/2025 2:51 PM Age: 34 years old Clinical indication: Pain; Upper arm; Right TECHNIQUE: Imaging protocol: Radiologic exam of the right humerus. Views: 2 or more views. COMPARISON: No relevant prior studies available. FINDINGS: Bones/joints: Normal. Soft tissues: Normal. XR/[place] [id number] IMPRESSION: No acute findings.
[2025-08-27] MEDS: cefTRIAXone 1,000 mg SDV 1000 MG IVP (14:51)
[2025-08-27 15:28] VITALS: BP 120/71; PULSE 94; O2SAT 98
== END 2025-08-27 16:03 | disposition home or self-care (01) ==
PROVIDERS: Emergency Provider Emergency Medicine; PCP Family Medicine
DX: E86.0 Dehydration (principal); N39.0 Urinary tract infection, site not specified; Z11.52 Encounter for screening for COVID-19; Z79.4 Long term (current) use of insulin; E10.9 Type 1 diabetes mellitus without complications; I10 Essential (primary) hypertension
CPT/HCPCS: 36416; 73060; 80053; 81001; 82962; 83605; 83690; 85025; 86140; 87086; 87637; 96361; 96374; 96375; 99284; J0696; J2405; J7030

== ENCOUNTER → 2025-08-29 14:54 | Outpatient (BNVA) | payer BC, MEDICAID, SELFPAY | PROVIDERS: PCP Family Medicine; Visit Provider Nurse Practitioner | DX: Z79.899 Other long term (current) drug therapy (principal); R53.1 Weakness | CPT/HCPCS: 85025 ==

== ENCOUNTER 2025-08-31 08:52 | Outpatient (CLI) | payer BC, MEDICAID, SELFPAY ==
[2025-08-31 09:50] LABS: Hematocrit 35.7 % (36-47); Hemoglobin 11.20 g/dL (11.27-16.99); Mean Corpuscular HGB Conc 31.4 g/dL (30-55); Mean Corpuscular Hemoglobin 31.2 pg (27-33); Mean Corpuscular Volume 99.4 fl (85-98); Nucleated Red Blood Cells % 0 %; Platelet Count 169 10^3/cmm (157-399); Red Blood Count 3.59 10^6/uL (3.85-5.65); White Blood Count 5.14 10^3/uL (3.29-11.43)
[2025-08-31 10:21] LABS: Alanine Aminotransferase 26 U/L (0-33); Albumin Level 3.7 g/dL (3.5-5.2); Alkaline Phosphatase 95 U/L (35-105); Anion Gap 14.2 (5-19); Aspartate Amino Transferase 23 U/L (0-32); Blood Urea Nitrogen 8 mg/dL (6-20); Calcium 8.9 mg/dL (8.5-10.5); Carbon Dioxide 26 mmol/L (22-29); Chloride 103 mmol/L (98-107); Globulin 3.3 g/dL (1.3-4.6); Glucose 309 mg/dL (65-115); Osmolality Calculated 298 mOsm/kg (285-295); Potassium 4.2 mmol/L (3.5-5.1); Sodium 139 mmol/L (136-145); Thyroid Stimulating Hormone 0.89 uIU/mL (0.27-4.20); Total Protein 7.0 g/dL (6.6-8.7)
[2025-08-31 10:43] LABS: Slide Review Slide Review Perform
== END 2025-08-31 08:53 | disposition home or self-care (01) ==
LOC: LAB 08:54
PROVIDERS: Internal Medicine Rheumatology; PCP Family Medicine; Visit Provider Nurse Practitioner
DX: R53.1 Weakness (principal); Z79.899 Other long term (current) drug therapy
CPT/HCPCS: 36415; 80053; 82248; 84443; 85025; 85651; 86140

== ENCOUNTER 2025-10-19 08:13 | Outpatient (CLI) | payer BC, MEDICAID, SELFPAY ==
--- NOTE | 2025-10-19 08:00 | MR_ITS ---
WS: [id number] MRI CERVICAL SPINE NONCONTRAST HISTORY: M54.2 - Cervicalgia, weakness LEFT arm and leg. COMPARISON: 03/02/2025 Technique: Multiplanar, multisequence noncontrast imaging of the cervical spine. Normal cervical alignment with no compression fracture or significant disc space narrowing. Signal within the cervical cord is normal. Visualized posterior fossa is unremarkable. Craniocervical junction, C1 and C2 relationship, odontoid process and soft tissues are normal. C2-C3: Normal. C3-C4: Very slight anterolisthesis of C3. Very mild facet joint arthritis. Very tiny RIGHT foraminal disc protrusion does not appear to be causing stenosis. Small foraminal osteophytes. C4-C5: Mild osteophytic ridging with mild bilateral foraminal stenosis. C5-C6: Mild osteophytic ridging with moderate bilateral facet arthropathy. Mild foraminal stenosis. C6-C7: Mild central disc protrusion and mild osteophytic ridging. Small bilateral foraminal osteophytes. Mild facet arthritis. C7-T1: No stenosis. Minimal facet arthritis. Paraspinal soft tissue are normal. MR/MR cervical spin wo con* [id number] IMPRESSION: 1. No high-grade central stenosis. 2. No signal abnormality within the cord. 3. Foraminal osteophytes and facet arthritis are similar to the prior study. 4. Facet joint arthritis from C3-4 through C7-T1. Most significant facet joint arthropathy is at C5-6. 5. Tiny RIGHT foraminal disc protrusion at C3-4. 6. Small central disc protrusion at C5-6 is unchanged. 7. Mild foraminal stenosis predominant due to osteophytes from C4-5 through C6 -7.
== END 2025-10-19 08:14 | disposition home or self-care (01) ==
LOC: RAD 08:14
PROVIDERS: PCP Family Medicine; Visit Provider Specialist
DX: M47.892 Other spondylosis, cervical region (principal); M50.222 Other cervical disc displacement at C5-C6 level; M48.02 Spinal stenosis, cervical region; M25.78 Osteophyte, vertebrae
CPT/HCPCS: 72141

== ENCOUNTER → 2025-10-24 14:28 | Outpatient (BNVA) | payer BC, MEDICAID, SELFPAY | PROVIDERS: PCP Family Medicine; Visit Provider Family Medicine | DX: R71.0 Precipitous drop in hematocrit (principal); E10.40 Type 1 diabetes mellitus with diabetic neuropathy, unspecified; Z79.899 Other long term (current) drug therapy | CPT/HCPCS: 82043; 85025 ==

== ENCOUNTER → 2025-10-25 09:38 | Outpatient (BNVA) | payer BC, MEDICAID, SELFPAY | PROVIDERS: PCP Family Medicine; Referring Provider Family Medicine; Visit Provider Family Medicine | DX: E10.40 Type 1 diabetes mellitus with diabetic neuropathy, unspecified (principal); Z79.899 Other long term (current) drug therapy; R71.0 Precipitous drop in hematocrit | CPT/HCPCS: 80053; 80061; 80076; 82565; 83036; 85025 ==